=== PATIENT | male | born 1950 | race Caucasian/White ===

== ENCOUNTER 2016-12-15 05:43 | Inpatient (IN) | payer OTHER ==
[2016-12-09 09:32] VITALS: BMI 28.0
--- NOTE | 2016-12-09 10:33 | PAT Medication Instructions ---
Service Date Dec 09, 2016. Current Home Medication List Allopurinol (Zyloprim *), 100 MG PO QAM Ascorbic Acid (Vitamin C *), 1,000 MG PO BID Aspirin (Aspirin *), 325 MG PO HS Atenolol (Tenormin), 25 MG PO QAM Carbamazepine (Tegretol Xr), 200 MG PO BID Cholecalciferol (Vitamin D3), 2,000 UNITS PO QAM Clonidine Hcl (Catapres *), 0.3 MG PO HS Clonidine Hcl (Catapres), 0.1 MG PO QAM Ezetimibe (Zetia), 10 MG PO QAM Felodipine (Plendil), 10 MG PO QAM Glucosamine-Chondroitin (Glucosamine/Chondroitin), 1 CAPSULE PO BID Hydrocodone/Acetaminophen 5MG/500MG (Vicodin (5MG/500MG)), 1-2 TABLETS PO Q4H PRN for Pain Indapamide (Indapamide), 2.5 MG PO BID Irbesartan (Avapro *), 150 MG PO BID Magnesium Oxide (Mag-Ox), 400 MG PO QPM Minoxidil (Minoxidil), 5 MG PO BID Niacin Ext Rel (Niaspan Ext Rel), 1,000 MG PO HS Vancleave 3 Fatty Acids-Vancleave 6 Fa (Vancleave 3-6-9 Complex), 2,000 MG PO BID Omeprazole (Prilosec), 20 MG PO DAILY Potassium Chloride (Klor-Con), 10 MEQ PO BID Rosuvastatin Calcium (Crestor *), 40 MG PO HS Spironolactone (Aldactone), 25 MG PO BID Medication Instructions For Your Scheduled Surgery - Hold the following medications as of 12/09/16: Vancleave 3 Fatty Acids-Vancleave 6 Fa (Vancleave 3-6-9 Complex), 2,000 MG PO BID Glucosamine-Chondroitin (Glucosamine/Chondroitin), 1 CAPSULE PO BID - Hold the following medications 24 hours prior to surgery: Niacin Ext Rel (Niaspan Ext Rel), 1,000 MG PO HS Irbesartan (Avapro *), 150 MG PO BID - Hold the following medications the morning of surgery: Spironolactone (Aldactone), 25 MG PO BID Ascorbic Acid (Vitamin C *), 1,000 MG PO BID Potassium Chloride (Klor-Con), 10 MEQ PO BID Cholecalciferol (Vitamin D3), 2,000 UNITS PO QAM Indapamide (Indapamide), 2.5 MG PO BID - Take the following medications the morning of surgery with a sip of water OTHERWISE NOTHING TO EAT OR DRINK AFTER MIDNIGHT: Allopurinol (Zyloprim *), 100 MG PO QAM Atenolol (Tenormin), 25 MG PO QAM Carbamazepine (Tegretol Xr), 200 MG PO BID Clonidine Hcl (Catapres), 0.1 MG PO QAM Ezetimibe (Zetia), 10 MG PO QAM Minoxidil (Minoxidil), 5 MG PO BID Felodipine (Plendil), 10 MG PO QAM Omeprazole (Prilosec), 20 MG PO DAILY Hydrocodone/Acetaminophen 5MG/500MG (Vicodin (5MG/500MG)), 1-2 TABLETS PO Q4H PRN for Pain (may take if needed up to 4 hours prior to surgery) - Take the following medications as scheduled the night before surgery: Spironolactone (Aldactone), 25 MG PO BID Ascorbic Acid (Vitamin C *), 1,000 MG PO BID Clonidine Hcl (Catapres *), 0.3 MG PO HS Aspirin (Aspirin *), 325 MG PO HS Rosuvastatin Calcium (Crestor *), 40 MG PO HS Potassium Chloride (Klor-Con), 10 MEQ PO BID Carbamazepine (Tegretol Xr), 200 MG PO BID Magnesium Oxide (Mag-Ox), 400 MG PO QPM Minoxidil (Minoxidil), 5 MG PO BID Indapamide (Indapamide), 2.5 MG PO BID Hydrocodone/Acetaminophen 5MG/500MG (Vicodin (5MG/500MG)), 1-2 TABLETS PO Q4H PRN for Pain If you have any questions please call us at [phone] or [phone] or [phone]
--- NOTE | 2016-12-09 11:05 | DIAGNOSTIC IMAGING REPORT ---
CHEST PREADMISSION(PA/LAT) HISTORY: Preop. COMPARISON: Chest 04/04/2010. FINDINGS: The lungs are clear. Cardiac silhouette is normal in size. No pleural effusions. No pneumothorax. Mildly tortuous thoracic aorta, unchanged. IMPRESSION: No significant change compared to the prior study. No acute process. Electronically signed by: Serge Lucas M.D. 12/09/2016 11:04 AM Dictated Date/Time: 12/09/2016 11:03 AM
[2016-12-09 11:22] LABS: BASO % 0.4 %; BASO ABS # 0.02 K/uL (0-0.2); COMPLETE YES; EOS % 3.4 %; HEMATOCRIT 36.5 % (42-52); IG% 0.2 %; LYMPH % 38.3 %; LYMPH ABS # 1.79 K/uL (1.2-3.4); MEAN CELL VOLUME 90.3 fL (80-100); MEAN CORPUSCULAR HEMOGLOBIN 32.9 pg (25-34); MEAN CORPUSCULAR HGB CONC 36.4 g/dl (32-36); MEAN PLATELET VOLUME 9.1 fL (7.4-10.4); MONO % 8.6 %; NEUT % 49.1 %; PLATELET COUNT 129 K/uL (130-400); RED BLOOD COUNT 4.04 M/uL (4.7-6.1); WHITE BLOOD COUNT 4.67 K/uL (4.8-10.8)
[2016-12-09 11:27] LABS: URINE APPEARANCE CLEAR (CLEAR); URINE BILIRUBIN NEG (NEG); URINE COLOR YELLOW; URINE NITRITE NEG (NEG); URINE SPECIFIC GRAVITY 1.023 (1.000-1.030); UROBILINOGEN NEG (NEG); ZZUR CULT IF INDIC CLEAN CATCH NO
[2016-12-09 11:30] LABS: BUN/CREATININE RATIO 25.1 (10-20); CALCIUM 9.4 mg/dl (8.5-10.1); CREATININE 1.8 mg/dl (0.60-1.40); POTASSIUM 4.4 mmol/L (3.5-5.1)
[2016-12-09 11:32] LABS: MANUAL MICROSCOPIC REQUIRED? NO; REVIEW REQ? NO
[~2016-12-15] VITALS: Ht 177.8 cm; Wt 83.5 kg
[2016-12-15] VITALS (9 sets, daily range): BP systolic 146–175; BP diastolic 81–106; PULSE 17–96; TEMP 36.4–37.2; O2SAT 92–96; Ht 177.8 cm; Wt 83.5 kg
[~2016-12-15 05:43] MED LIST: ALL100 PO; ASCA500 PO; ASPEC325 PO; ATEN-173 PO; AVP150 PO; CARB1CAP3 PO; CHOL2000 PO; CLON0.1T12 PO; CRS10 PO; CTP2 PO; FELO10TA2 PO; GLUC250C PO; HYDR5TAB27 PO; INDA2.5T PO; MAGN400T6 PO; MCRK20 PO; MINO1TAB PO; NIAC1TAB59 PO; OMEG1CAP71 PO; PRLSR20 PO; SPIR25TA PO; ZTA10 PO
[2016-12-15] MEDS ORDERED: LACTATED RINGER'S 1000ML 1,000 ML IV SCH (06:00)
[2016-12-15] MEDS ORDERED: CEFAZOLIN 2000 MG/60 ML D5W IV SCH (06:00)
[2016-12-15] MEDS ORDERED: MIDAZOLAM HCL 1 MG/ML 2ML VIAL ONE (06:50)
[2016-12-15] MEDS ORDERED: FENTANYL CITRATE INJ 50 MCG/1 ML 2 ML VIAL ONE ×3 (06:50→09:12)
[2016-12-15] MEDS ORDERED: BUPIVACAINE/EPINEPHRINE 0.5% MPF 1:200,000 30 ML VIAL ONE (07:11)
[2016-12-15] MEDS ORDERED: BACITRACIN 50000 UNIT VIAL ONE (07:11)
--- NOTE | 2016-12-15 07:27 | History & Physical Bridge Note ---
H&P Re-Evaluation Bridge Note: I have examined the patient, reviewed the History & Physical and in the interval since the performance of the History & Physical I have noted the following changes of clinical significance: No changes noted
--- NOTE | 2016-12-15 07:28 | History and Physical ---
History & Physical Date Dec 15, 2016. Chief Complaint Back and leg pain History of Present Illness The patient is a 66 year old male with complaints of back and leg pain Additional History Hepatic Disease: No Endocrine Disorder: No Kidney Disease: No Hypertension: No Heart Disease: No Bleeding Tendencies: No Infectious Diseases: No Allergies Coded Allergies: No Known Allergies (Verified , 12/09/16) Home Medications Scheduled Allopurinol (Zyloprim *), 100 MG PO QAM Ascorbic Acid (Vitamin C *), 1,000 MG PO BID Aspirin (Aspirin *), 325 MG PO HS Atenolol (Tenormin), 25 MG PO QAM Carbamazepine (Tegretol Xr), 200 MG PO BID Cholecalciferol (Vitamin D3), 2,000 UNITS PO QAM Clonidine Hcl (Catapres *), 0.3 MG PO HS Clonidine Hcl (Catapres), 0.1 MG PO QAM Ezetimibe (Zetia), 10 MG PO QAM Felodipine (Plendil), 10 MG PO QAM Glucosamine-Chondroitin (Glucosamine/Chondroitin), 1 CAPSULE PO BID Indapamide (Indapamide), 2.5 MG PO BID Irbesartan (Avapro *), 150 MG PO BID Magnesium Oxide (Mag-Ox), 400 MG PO QPM Minoxidil (Minoxidil), 5 MG PO BID Niacin Ext Rel (Niaspan Ext Rel), 1,000 MG PO HS Culbertson 3 Fatty Acids-Culbertson 6 Fa (Culbertson 3-6-9 Complex), 2,000 MG PO BID Omeprazole (Prilosec), 20 MG PO DAILY Potassium Chloride (Klor-Con), 10 MEQ PO BID Rosuvastatin Calcium (Crestor *), 40 MG PO HS Spironolactone (Aldactone), 25 MG PO BID Scheduled PRN Hydrocodone/Acetaminophen 5MG/500MG (Vicodin (5MG/500MG)), 1-2 TABLETS PO Q4H PRN for Pain Physical Examination Skin: warm/dry, no rash Eyes: normal inspection, EOMI, sclerae normal ENT: normal ENT inspection, pharynx normal Head: normocephalic, atraumatic Neck: supple, no adenopathy, trachea midline Respiratory/Chest: lungs clear, normal breath sounds, no respiratory distress Cardiovascular: regular rate, rhythm, no edema, no murmur Abdomen / GI: normal bowel sounds, non tender Back: normal inspection Extremities: normal inspection, normal range of motion Neurologic/Psych: no motor/sensory deficits, alert, normal reflexes, oriented x 3 Diagnosis Lumbar spinal stenosis Plan of Treatment Lumbar decompression fusion L5-S1 possible L4 5.
[2016-12-15] MEDS ORDERED: HYDROmorphone INJ 1 MG/ML SYR IV PRN (08:00)
[2016-12-15] MEDS ORDERED: LABETALOL HCL IV 5 MG/ML 20ML IV PRN (08:00)
[2016-12-15] MEDS ORDERED: EpHEDrine SULFATE INJ 50 MG/ML AMP IV PRN (08:00)
[2016-12-15] MEDS ORDERED: ONDANSETRON INJ 2 MG/ML 2 ML VIAL IV PRN (08:00)
[2016-12-15] MEDS ORDERED: ATROPINE SULFATE 0.1 MG/ML 5ML SYR IV PRN (08:00)
[2016-12-15] MEDS ORDERED: MEPERIDINE HCL 25 MG/ML CARP IV PRN (08:00)
[2016-12-15] MEDS ORDERED: HYDROmorphone INJ 2 MG/ML SYR/VIAL ONE ×2 (08:01→09:15)
[2016-12-15] MEDS ORDERED: PROPOFOL IV EMULSION 10 MG/ML 20 ML VIAL IV ONE (08:03)
[2016-12-15] MEDS ORDERED: LIDOCAINE HCL 2% 2 ML VIAL (20MG/ML) ONE (08:03)
[2016-12-15] MEDS ORDERED: DEXAMETHASONE SOD INJ 4 MG/ML VIAL ONE (08:03)
[2016-12-15] MEDS ORDERED: ONDANSETRON INJ 2 MG/ML 2 ML VIAL ONE ×2 (08:03→09:17)
[2016-12-15] MEDS ORDERED: FLOSEAL HEMOSTATIC MATRIX 10ML TOP ONE (09:02)
[2016-12-15] MEDS ORDERED: SODIUM CHLORIDE 0.9% 1000ML 1,000 ML IV SCH (09:13)
[2016-12-15] MEDS ORDERED: hydrOXYzine HCL 25 MG TAB PO PRN (09:15)
[2016-12-15] MEDS ORDERED: PROMETHAZINE HCL INJ 12.5 MG in SODIUM CHLORIDE 0.9% 50ML 50 ML IV PRN (09:15)
[2016-12-15] MEDS ORDERED: MAGNESIUM HYDROXIDE SUSP 30 ML UDC PO PRN (09:15)
[2016-12-15] MEDS ORDERED: SOD PHOSPHATE/SOD BIPHOSPHATE ENEMA 132 ML BTL PR PRN (09:15)
[2016-12-15] MEDS ORDERED: DO NOT ADMINISTER PNEUMOCOCCAL VACCINE PRN ×2 (09:15)
[2016-12-15] MEDS ORDERED: FAMOTIDINE 20 MG TAB PO PRN (09:15)
[2016-12-15] MEDS ORDERED: ALUMINUM/MAGNESIUM SUSP 30 ML UDC PO PRN (09:15)
[2016-12-15] MEDS ORDERED: BISACODYL 10 MG SUPP PR PRN (09:15)
[2016-12-15] MEDS ORDERED: LORAZEPAM INJ 0.5 MG in SYRINGE 0.75 ML IV PRN (09:15)
[2016-12-15] MEDS ORDERED: NALOXONE HCL 0.4 MG/1 ML VIAL/CARP IV PRN ×2 (09:15)
[2016-12-15] MEDS ORDERED: METOCLOPRAMIDE HCL INJ 5 MG/ML 2 ML VIAL IV PRN (09:15)
[2016-12-15] MEDS ORDERED: DO NOT ADMINISTER FLU VACCINE PRN ×3 (09:15)
[2016-12-15] MEDS ORDERED: ACETAMINOPHEN IV 100 ML IV PRN (09:15)
[2016-12-15] MEDS ORDERED: LORAZEPAM 0.5 MG TAB PO PRN (09:15)
[2016-12-15] MEDS ORDERED: NEOSTIGMINE METHYLSULFATE 1 MG/ML 10ML VIAL ONE (09:17)
[2016-12-15] MEDS ORDERED: EpHEDrine SULFATE 50MG/5ML SYR ONE (09:17)
[2016-12-15] MEDS ORDERED: GLYCOPYRROLATE INJ 0.2 MG/ML VIAL ONE (09:17)
[2016-12-15] MEDS ORDERED: PHENYLEPHRINE 100MCG/ML 5ML SYR ONE (09:17)
--- NOTE | 2016-12-15 09:19 | [facility] Operative Report ---
Operative Report Operative Date Dec 15, 2016. Pre-Operative Diagnosis Lumbar spinal stenosis L4-5 Post-Operative Diagnosis Lumbar spinal stenosis L4-5 Procedure(s) Performed #1 lumbar decompression medial facetectomies foraminotomies L4 5 L5-S1. #2 posterior spinal fusion L5-S1. #3 placement posterior instrumentation L5-S1. #4 interbody fusion L5-S1. #5 placement peek Cage 14 x 26 mm L5-S1. #6 placement of locally harvested morcellized autograft in the posterior gutters. #7 placement of ostial amp in the interbody space and posterior lateral gutters. Surgeon Dr. Anthony Owens Operations Manager/Coordinator Surgeon(s) Joelle Anderson PA-C Estimated Blood Loss 450ML Findings Severe spinal stenosis with spondylolisthesis Specimens none per surgeon Dr. Anthony Owens Description of Procedure Patient was met with preoperatively case discussed all questions are dressed. After informed consent patient was taken back to the operative suite and intubated and placed in a prone position on the Pastor table on top Francois frame. All bony prominences were well-padded eyes inspected to ensure no external pressure. Lumbar spine was prepped and draped in the normal sterile fashion. Sharp dissection with the assistance of Bovie cautery was performed onto an exposing the lamina and transverse processes of L5-S1. Obvious pars defect was appreciated. A complete laminectomy was performed of L5 partial laminectomy of L4 addressing lateral recess disease and foraminal stenosis bilaterally. Is a massive disc herniation at L5 S1 left. After all was decompressed pedicle screws are placed in L5-S1 levels bilaterally with assistance of fluoroscopy in the appropriate size david placed through a transforaminal approach on the left complete discectomy of L5-S1 was performed and plate created to subcortical bleeding bone and a 14 x 26 mm peek cage filled with ostial amp graft tapped in position. Rods and locked and final position bilaterally. The transverse processes of L5 and sacral alar burred to subcortical bleeding bone. Remaining locally harvested morcellized autograft bone graft was placed the posterior gutters. 15 round DONNELL drain inserted. Incision closed with 1 Vicryl in the fascia 2-0 Vicryl subcutaneously 4-0 Monocryl for final skin closure Steri-Strip sterile dressing placed. Patient we can taken to PACU stable condition. Please note Joelle Flores was present at the entire procedure involved in patient positioning complex portions of the surgery and final skin closure. I attest to the content of the Intraoperative Record and any orders documented therein. Any exceptions are noted below.
[2016-12-15] MEDS ORDERED: HYDROmorphone HCL 0.5MG/ML 50 ML CASSETTE ONE (09:33)
[2016-12-15] MEDS: HYDROmorphone HCL 0.5MG/ML 50 ML CASSETTE IV PRN ×4 (09:42→23:08)
[2016-12-15] MEDS: FENTANYL CITRATE INJ 50 MCG/1 ML 2 ML VIAL IV PRN ×2 (09:46→09:52)
--- NOTE | 2016-12-15 10:34 | Anesthesiology Progress Note ---
Anesthesia Post Op Note Date & Time Dec 15, 2016 at 10:33 Vital Signs Pain Intensity: 4 Vital Signs Past 12 Hours Date Time Temp Pulse Resp B/P (MAP) Pulse Ox O2 Delivery O2 Flow Rate FiO2 12/15/16 10:25 62 19 140/85 95 Nasal Cannula 4 12/15/16 10:15 63 19 139/89 99 Nasal Cannula 4 12/15/16 10:05 36.3 67 19 146/92 100 Nasal Cannula 4 12/15/16 09:55 67 21 134/82 100 Nasal Cannula 4 12/15/16 09:45 77 25 141/85 100 Oxymask 10 12/15/16 09:35 73 21 144/82 99 Oxymask 10 12/15/16 09:28 36.5 80 16 145/81 97 Oxymask 10 12/15/16 06:02 36.8 69 18 159/105 96 Room Air Notes Mental Status: alert / awake / arousable, participated in evaluation Pt Amnestic to Procedure: Yes Nausea / Vomiting: adequately controlled Pain: adequately controlled Airway Patency, RR, SpO2: stable & adequate BP & HR: stable & adequate Hydration State: stable & adequate Anesthetic Complications: no major complications apparent
[2016-12-15] MEDS: LACTATED RINGER'S 1000ML 1,000 ML IV SCH ×3 (11:14→22:18)
--- NOTE | 2016-12-15 11:29 | DIAGNOSTIC IMAGING REPORT ---
INTRAOPERATIVE RADIOGRAPHS CLINICAL HISTORY: L5-S1 spinal fusion. Fluoroscopy time: 20 seconds. FINDINGS: 2 spot fluoroscopic views of the lumbar spine are presented. There is evidence of laminectomy and posterior fusion at L5-S1. There has been discectomy at this level. Interpedicular screws are seen at both levels. The orthopedic hardware appears intact. An aortic stent graft is noted. IMPRESSION: Intraoperative images from L5 -S1 spinal fusion as above. Electronically signed by: Gil Gomez M.D. 12/15/2016 11:28 AM Dictated Date/Time: 12/15/2016 11:27 AM
[2016-12-15] MEDS ORDERED: RXC5 PO (11:58)
--- NOTE | 2016-12-15 11:59 | Discharge Instructions ---
Discharge Instructions Date of Service Dec 15, 2016. Admission Reason for Admission: Lumbar Spinal Stenosis Discharge Discharge Diagnosis / Problem: lumbar spinal stenosis Discharge Goals Goal(s): Improve function Activity Recommendations Activity Limitations: per Instructions/Follow-up section . Instructions / Follow-Up Instructions / Follow-Up ACTIVITY RECOMMENDATIONS: SELF CARE INSTRUCTIONS AFTER THORACIC/LUMBAR FUSIONS 1. You may walk to your tolerance. It is good exercise for your legs and back. Expect some back and intermittent leg aches and pains. 2. You may perform "counter-top" level activities (make a sandwich, jennyfer with a project, etc.). 3. No bending or lifting of more than 10 pounds or back twisting of any nature (roll like a log when turning in bed). 4. You may ride in a car for 20-30 minutes at a time. No driving until after your first visit with your doctor. 5. Frequent changes of position and restricting sitting to 30 minutes at a time will help limit the amount of back spasms and stiffness you may experience. 6. You may discontinue the use of ambulatory aids (cane, crutches, etc.) once your strength and confidence allow. 7. You may billing supervisor the shower and let water strike your incision when you arrive home at least once daily. Do not take a tub bath, sit in a hot tub or go into a swimming pool until after your first recheck in the office. SPECIAL CARE INSTRUCTIONS: VERY IMPORTANT TO READ AND REVIEW A. Your surgical incision has been closed with a cosmetic suture under the skin that will dissolve in about 6 weeks. In 14 days, you can use a pair of clean scissors and cut the suture that is left outside of the skin at the ends of your incision. 1. The small skin tapes can be removed 7 days after surgery if they have not fallen off by that point. 2. You may keep the wound open to air as much as possible to promote healing after post-op day number 5 unless told otherwise by your doctor. 3. If you think the wound looks like it is becoming infected (redness or worsening drainage) and/or you are experiencing fever, chill or worsening back pain and muscle spasms, contact the office so that we may evaluate you as soon as possible. B. Complications are uncommon, but please contact us if you have any signs or symptoms of: 1. wound infection (fever higher than 102.5 degrees F, redness, separation of wound, drainage, or increasing pain from the incision) 2. blood clots in legs (pain, swelling, redness and warmth in legs) 3. urinary tract infection (fever higher than 102.5 degrees F, burning upon urination or increased frequency of urination) 4. nerve problems (inability to walk on your toes or heels, numbness, loss of bowel or bladder control) 5. any other symptoms that concern you C. Please call the office at if you have any concerns or questions about your operation or recovery. D. No smoking! Smoking drastically decreases the chance of a solid fusion. E. Do not take any anti-inflammatory medications (Indocin, Advil, Motrin, Aspirin, Naprosyn, etc.) as these may inhibit the chance of a solid fusion. Tylenol is okay to take for pain. MANAGING PAIN AFTER SPINAL SURGERY 1. Narcotic medication is intended for short-term use and will be provided for surgical pain. Surgical pain usually lasts for a period of 4-6 weeks. Narcotic medication includes Percocet, Vicodin, Darvocet, Tylenol #3 or Lortab. 2. Longer-term pain is more appropriately treated with non-narcotic medication such as Tylenol ES. 3. Muscle spasm is not appropriately treated with narcotics. Muscle relaxers such as Soma, Flexeril or Skelaxin can be used along with Tylenol ES. 4. Remember that we all live with some "aches and pains". This is not unusual or uncommon after an injury or as we get older. a. Back pain is expected and may include muscle spasms for 4 to 6 weeks after surgery. The pain should gradually improve. If the pain worsens for no apparent reason, please contact the office. b. Intermittent leg pain may also be experienced and should not be concerned about unless it worsens for no apparent reason. If so, please contact the office. 5. We will provide appropriate medication within the normal guidelines of their prescribed use. We will also be very cautious and aware of potential abuse and extended duration of patients' medication needs. a. Pain medications are for your comfort and to assist with sleep and rest so that the tissue can heal. They are not provided in order to return to normal activity and should not be used through the day. To do so or worsening pain at night can result from ongoing tissue damage and development of tolerance to the prescribed medicine. 6. Please allow 2-3 days to process refills. Prescriptions will not be mailed but must be picked up at the office. FOLLOW UP VISIT: Keep your scheduled follow-up appointment. Any questions, please call the office at . Current Hospital Diet Patient's current hospital diet: Regular Diet Discharge Diet Recommended Diet: Regular Diet Procedures Procedures Performed: #1 lumbar decompression medial facetectomies foraminotomies L4 5 L5-S1. #2 posterior spinal fusion L5-S1. #3 placement posterior instrumentation L5-S1. #4 interbody fusion L5-S1. #5 placement peek Cage 14 x 26 mm L5-S1. #6 placement of locally harvested morcellized autograft in the posterior gutters. #7 placement of ostial amp in the interbody space and posterior lateral gutters. Pending Studies Studies pending at discharge: no Medical Emergencies . Who to Call and When: Medical Emergencies: If at any time you feel your situation is an emergency, please call 911 immediately. . Non-Emergent Contact Non-Emergency issues call your: Primary Care Provider . "Provider Documentation" section prepared by Anthony Owens. . VTE Core Measure Inpt VTE Proph given/why not?: Mari Huitron, SCD's
--- NOTE | 2016-12-15 13:23 | Medical Consult ---
Consultation Date of Consultation: Dec 15, 2016. Attending Physician: Anthony Owens D.O. Reason for Consultation: Post Op Medical Management History of Present Illness 66 year old male who is s/p lumbar decompression fusion today by Dr. Owens. Patient reports increasing back pain for the past year and a half with radiation into the left with left foot numbness. He failed outpatient conservative measures and therefore presented for the planned procedure today. Post operatively the patient is doing well. He reports his pain is well controlled. He denies any numbness or tingling to the BLLE. He denies chest pain and shortness of breath. No abdominal pain, nausea, or vomiting. No lightheadedness or dizziness. He has not voided since surgery. Past Medical/Surgical History Medical Problems: (1) CKD (chronic kidney disease), stage III Status: Chronic (2) Dyslipidemia Status: Chronic (3) Endoleak post (EVAR) endovascular aneurysm repair Status: Chronic (4) HTN (hypertension) Status: Chronic Surgical Problems: (1) History of appendectomy Status: Chronic (2) History of thumb surgery Permanent Comment: right Status: Chronic (3) Hx of cardiac cath Permanent Comment: 2010 - mild - moderate non obstructive CAD Status: Chronic (4) S/P AAA repair Status: Chronic (5) s/p meniscus repair Status: Chronic (6) S/P shoulder surgery Permanent Comment: left Status: Chronic Family History FH: CAD (coronary artery disease) FATHER FH: lung cancer FATHER Social History Smoking Status: Never Smoker Alcohol Use: none Allergies Coded Allergies: No Known Allergies (Verified , 12/09/16) Home Medications Mag-Ox (Magnesium Oxide) 400 Mg Tab 400 Mg PO QPM Zetia (Ezetimibe) 10 Mg Tab 10 Mg PO QAM Minoxidil 10 Mg Tab 5 Mg PO BID 1/2 TABLET TWICE DAILY. Vitamin D3 (Cholecalciferol) 2,000 Unit Cap 2,000 Units PO QAM TAKE EVERY MONDAY/MONDAY/MONDAY Indapamide 2.5 Mg Tab 2.5 Mg PO BID TAKE TWO TABLTS DAILY Glucosamine/Chondroitin (Glucosamine-Chondroitin) 1 Cap Cap 1 Capsule PO BID [place] 3-6-9 Complex ([place] 3 Fatty Acids-[place] 6 Fa) 1 Cap Cap 2,000 Mg PO BID Catapres (Clonidine Hcl) 0.1 Mg Tab 0.1 Mg PO QAM Vicodin (5MG/500MG) (Hydrocodone/Acetaminophen 5MG/500MG) 1 Tab Tab 1-2 Tablets PO Q4H PRN Prilosec (Omeprazole) 20 Mg Capcr 20 Mg PO DAILY TAKE ONE DAILY 30-60 MINUTES BEFORE EATING. Klor-Con (Potassium Chloride) 20 Meq Tabcr 10 Meq PO BID TAKE 1/2 TABLET AM AND PM DAILY Vitamin C * (Ascorbic Acid) 500 Mg Tab 1,000 Mg PO BID Aldactone (Spironolactone) 25 Mg Tab 25 Mg PO BID Plendil (Felodipine) 10 Mg Tabcr 10 Mg PO QAM Niaspan Ext Rel (Niacin) 500 Mg Tabcr 1,000 Mg PO HS TAKE AT BEDTIME AFTER A LOW FAT SNACK. Crestor * (Rosuvastatin Calcium) 10 Mg Tab 40 Mg PO HS Catapres * (Clonidine HCl) 0.2 Mg Tab 0.3 Mg PO HS Tegretol Xr (Carbamazepine) 200 Mg Cap 200 Mg PO BID MAY TAKE THREE TIMES DAILY NEEDED. Avapro * (Irbesartan) 150 Mg Tab 150 Mg PO BID Tenormin (Atenolol) 25 Mg Tab 25 Mg PO QAM Zyloprim * (Allopurinol) 100 Mg Tab 100 Mg PO QAM Aspirin * (Aspirin) 325 Mg Tab 325 Mg PO HS Current Inpatient Medications Current Inpatient Medications Medications (Trade) Dose Ordered Sig/Abby Route Start Time Stop Time Status Last Admin Dose Admin Dexamethasone Sodium Phosphate 6 mg/Syringe 1.5 ml @ 1 mls/min Q8H IV 12/15/16 16:00 12/16/16 08:02 Promethazine HCl 12.5 mg/Sodium Chloride 50.5 ml @ 202 mls/hr Q6H PRN IV 12/15/16 09:15 01/14/17 09:14 Ondansetron HCl (Zofran Inj) 4 mg Q6H PRN IV 12/15/16 09:15 01/14/17 09:14 Metoclopramide HCl (Reglan Inj) 10 mg Q6H PRN IV 12/15/16 09:15 01/14/17 09:14 Lorazepam (Ativan Tab) 0.5 mg Q8H PRN PO 12/15/16 09:15 01/14/17 09:14 Lorazepam 0.5 mg/ Syringe 1 ml @ 1 mls/min Q8H PRN IV 12/15/16 09:15 01/14/17 09:14 Pneumococcal Polysaccharide Vaccine 1 ea PRN PRN N/A 12/15/16 09:15 01/14/17 09:14 Influenza Virus Vacc Triv Types A&B 1 ea PRN PRN N/A 12/15/16 09:15 01/14/17 09:14 Polyethylene (Miralax Powder Packet) 17 gm Q6 PO 12/17/16 06:00 01/16/17 05:59 Bisacodyl (Dulcolax Supp) 10 mg DAILY PRN DE 12/15/16 09:15 01/14/17 09:14 Magnesium Hydroxide (Milk Of Magnesia Susp) 30 ml DAILY PRN PO 12/15/16 09:15 01/14/17 09:14 Hydromorphone HCl (Dilaudid Inj) 0.5 mg Q3H PRN IV 12/16/16 06:00 12/30/16 05:59 Oxycodone HCl (Roxicodone Immediate Rel Tab) 5-10mg prn moderate to sev... Q4H PRN PO 12/16/16 06:00 12/30/16 05:59 Cefazolin Sodium 2000 mg/Dextrose 60 ml @ 100 mls/hr Q8H IV 12/15/16 16:00 12/16/16 00:35 Lactated Ringer's 1,000 ml @ 150 mls/hr Q6H40M IV 12/15/16 09:13 01/14/17 09:12 12/15/16 11:14 150 MLS/HR Acetaminophen (Tylenol Tab) 1,000 mg Q8H PRN PO 12/15/16 09:15 01/14/17 09:14 Acetaminophen 100 ml @ 400 mls/hr Q8H PRN IV 12/15/16 09:15 01/14/17 09:14 Naloxone HCl (Narcan Inj) 0.1 mg Q5M PRN IV 12/15/16 09:15 01/14/17 09:14 Senna/Docusate Sodium (Senokot S Tab) 2 tab HS PO 12/15/16 21:00 01/14/17 20:59 Sodium Biphosphate/ Sodium Phosphate (Fleet Enema) 132 ml ONE PRN DE 12/15/16 09:15 01/14/17 09:14 Hydroxyzine HCl (Vistaril Tab) 25 mg Q8H PRN PO 12/15/16 09:15 01/14/17 09:14 Al Hydroxide/Mg Hydroxide (Maalox Susp) 30 ml Q6H PRN PO 12/15/16 09:15 01/14/17 09:14 Famotidine (Pepcid Tab) 20 mg Q12 PRN PO 12/15/16 09:15 01/14/17 09:14 Diphenhydramine HCl (Benadryl Cap) 25 mg Q6H PRN PO 12/15/16 09:15 01/14/17 09:14 Miscellaneous Information (Discontinue [employer]) 1 ea TODAY@0600 N/A 12/16/16 06:00 12/16/16 06:01 Naloxone HCl (Narcan Inj) 0.1 mg Q5M PRN IV 12/15/16 09:15 12/16/16 06:00 Hydromorphone HCl (Dilaudid [employer]) 25 mg PRN PRN IV 12/15/16 09:15 12/16/16 06:00 12/15/16 10:45 25 MG Sodium Chloride 1,000 ml @ 15 mls/hr Q24H IV 12/15/16 09:13 12/16/16 06:00 Allopurinol (Zyloprim Tab) 100 mg QAM PO 12/16/16 09:00 01/15/17 08:59 Aspirin (Ecotrin Tab) 325 mg HS PO 12/15/16 21:00 01/14/17 20:59 Atenolol (Tenormin Tab) 25 mg QAM PO 12/16/16 09:00 01/15/17 08:59 Clonidine HCl (Catapres Tab) 0.1 mg QAM PO 12/16/16 09:00 01/15/17 08:59 EZETIMIBE (Zetia Tab) 10 mg QAM PO 12/16/16 09:00 01/15/17 08:59 Irbesartan (Avapro Tab) 150 mg BID PO 12/15/16 21:00 01/14/17 20:59 Magnesium Oxide (Mag-Ox Tab) 400 mg QPM PO 12/15/16 21:00 01/14/17 20:59 Minoxidil (Loniten Tab) 5 mg BID PO 12/15/16 21:00 01/14/17 20:59 Niacin (Niaspan Extended Rel Tab) 1,000 mg HS PO 12/15/16 21:00 01/14/17 20:59 Potassium Chloride (Klor-Con M10) 10 meq BID PO 12/15/16 21:00 01/14/17 20:59 Rosuvastatin Calcium (Crestor Tab) 40 mg HS PO 12/15/16 21:00 01/14/17 20:59 Spironolactone (Aldactone Tab) 25 mg BID PO 12/15/16 21:00 01/14/17 20:59 Pantoprazole Sodium (Protonix Tab) 40 mg QAM PO 12/16/16 09:00 01/15/17 08:59 Hydromorphone HCl (Dilaudid Inj) 1 mg Q3H PRN IV 12/16/16 06:00 12/30/16 05:59 Felodipine (Plendil Tabcr) 10 mg QAM PO 12/16/16 09:00 01/15/17 08:59 Clonidine HCl (Catapres Tab) 0.3 mg HS PO 12/15/16 21:00 01/14/17 20:59 Indapamide (Lozol Tab) 2.5 mg BID PO 12/15/16 21:00 01/14/17 20:59 Physical Exam Date Time Temp Pulse Resp B/P (MAP) Pulse Ox O2 Delivery O2 Flow Rate FiO2 12/15/16 12:50 36.6 74 19 163/92 (115) 92 Room Air 12/15/16 11:45 36.7 68 19 156/86 (109) 93 Nasal Cannula 4.0 12/15/16 10:45 96 Room Air 4.0 12/15/16 10:45 96 Room Air 4.0 12/15/16 10:25 62 19 140/85 95 Nasal Cannula 4 12/15/16 10:15 63 19 139/89 99 Nasal Cannula 4 12/15/16 10:05 36.3 67 19 146/92 100 Nasal Cannula 4 12/15/16 09:55 67 21 134/82 100 Nasal Cannula 4 12/15/16 09:45 77 25 141/85 100 Oxymask 10 12/15/16 09:35 73 21 144/82 99 Oxymask 10 12/15/16 09:28 36.5 80 16 145/81 97 Oxymask 10 12/15/16 06:02 36.8 69 18 159/105 96 Room Air General Appearance: no apparent distress Head: normocephalic, atraumatic Eyes: normal inspection, sclerae normal ENT: hearing grossly normal Neck: supple, no JVD Respiratory/Chest: lungs clear, normal breath sounds, no respiratory distress Cardiovascular: regular rate, rhythm, no edema, normal peripheral pulses Abdomen/GI: normal bowel sounds, non tender, soft Back: + pertinent finding (s/p back surgery, drain in place draining bloody drainage, pedal pushes and pulls strong BL) Extremities/Musculoskelatal: normal inspection, no calf tenderness Neurologic/Psych: no motor/sensory deficits, alert, normal mood/affect, oriented x 3 Skin: normal color, warm/dry Assessment & Plan S/P LUMBAR DECOMPRESSION FUSION - POD#0 - activity and wound care orders as per ortho - pain control with bowel regimen - PT/OT - monitor H/H for acute blood loss anemia and transfuse blood products PRN HTN - hx of labile HTN currently on 7 antihypertensives - continue irbesartan, clonidine, minoxidil, felodipine, indapamide, atenolol, and spironolactone CKD STAGE III - baseline creat runs in the mid 1's - monitor renal function daily HX AAA S/P REPAIR WITH CHRONIC ENDOLEAK HLD - continue statin, Zetia, and Niacin DVT PROPHYLAXIS - ASA + TEDs/SCDs per ortho Thank you for this consultation. We will follow the patient with you during their hospital stay. You can reach a member of the [facility] Hospitalist Team 17/10 via pager @ . ADDENDUM: I have seen and examined the patient and agree with the assessment and plan above with the exception that I would like to hold his renovascular constricting medications in the setting of his slightly elevated creatinine ( baseline 1.3). He will still receive his clonidine, spironolactone, atenolol and Plendil. Will monitor BP closely overnight. DO Riley
[2016-12-15 15:06] LABS: BUN/CREATININE RATIO 20.2 (10-20); CALCIUM 9.5 mg/dl (8.5-10.1); CREATININE 1.5 mg/dl (0.60-1.40); POTASSIUM 3.8 mmol/L (3.5-5.1)
[2016-12-15] MEDS: MINOXIDIL 2.5 MG TAB PO SCH ×2 (15:37→22:10)
[2016-12-15] MEDS: CEFAZOLIN IV 2,000 MG in DEXTROSE 5% 50ML 50 ML IV SCH ×2 (17:26→23:28)
[2016-12-15] MEDS: DEXAMETHASONE INJ 6 MG in SYRINGE 0 ML IV SCH ×2 (17:27→23:44)
[2016-12-15] MEDS: ONDANSETRON INJ 2 MG/ML 2 ML VIAL IV PRN (19:37)
[2016-12-15] MEDS ORDERED: LIDOCAINE HCL 2% JELLY 30 ML TUBE EXT ONE ×2 (20:25→20:30)
[2016-12-15] MEDS ORDERED: LIDOCAINE 2% JELLY 5 ML TUBE EXT ONE (20:30)
[2016-12-15] MEDS ORDERED: NURSING VERBAL MED ORDER ONE (20:30)
[2016-12-15] MEDS ORDERED: IRBESARTAN 150 MG TAB PO SCH (21:00)
[2016-12-15] MEDS ORDERED: INDAPAMIDE 1.25 MG TAB PO SCH (21:00)
[2016-12-15] MEDS: DOCUSATE SODIUM/SENNA 50/8.6MG TAB PO SCH (22:06)
[2016-12-15] MEDS: ROSUVASTATIN CALCIUM 20 MG TAB PO SCH (22:06)
[2016-12-15] MEDS: NIASPAN 500 MG TABCR PO SCH (22:07)
[2016-12-15] MEDS: POTASSIUM CHLORIDE 10 MEQ TABCR PO SCH (22:10)
[2016-12-15] MEDS: MAGNESIUM OXIDE 400 MG TAB PO SCH (22:12)
[2016-12-15] MEDS: SPIRONOLACTONE 25 MG TAB PO SCH (22:13)
[2016-12-15] MEDS: CLONIDINE HCL 0.3 MG TAB PO SCH (22:14)
[2016-12-15] MEDS: ASPIRIN 325 MG ECTAB PO SCH (22:14)
[2016-12-15] MEDS ORDERED: HydrALAZINE HCL 20 MG/ML VIAL IV. ONE (23:00)
[2016-12-16] MEDS: ACETAMINOPHEN 500 MG TAB PO PRN ×2 (03:30→21:09)
[2016-12-16 03:37] VITALS: BP 141/81; PULSE 91; TEMP 37.1; O2SAT 93
[2016-12-16] MEDS: LACTATED RINGER'S 1000ML 1,000 ML IV SCH (04:46)
[2016-12-16] MEDS ORDERED: DC PCA SCH (06:00)
[2016-12-16] MEDS ORDERED: HYDROmorphone INJ 1 MG/ML SYR IV PRN (06:00)
[2016-12-16] MEDS ORDERED: HYDROmorphone INJ 0.5 MG/0.5 ML SYR IV PRN (06:00)
[2016-12-16 06:59] LABS: COMPLETE YES; HEMATOCRIT 31.9 % (42-52); IG% 0.4 %; LYMPH % 12.3 %; LYMPH ABS # 1.45 K/uL (1.2-3.4); MEAN CELL VOLUME 89.9 fL (80-100); MEAN CORPUSCULAR HEMOGLOBIN 31.8 pg (25-34); MEAN CORPUSCULAR HGB CONC 35.4 g/dl (32-36); MEAN PLATELET VOLUME 9.2 fL (7.4-10.4); MONO % 8.3 %; PLATELET COUNT 137 K/uL (130-400); RED BLOOD COUNT 3.55 M/uL (4.7-6.1); WHITE BLOOD COUNT 11.83 K/uL (4.8-10.8)
[2016-12-16] MEDS ORDERED: NURSING VERBAL MED ORDER ONE (07:15)
[2016-12-16 07:35] LABS: CALCIUM 9.2 mg/dl (8.5-10.1); CREATININE 1.5 mg/dl (0.60-1.40); POTASSIUM 3.6 mmol/L (3.5-5.1)
[2016-12-16 07:47] VITALS: BP 129/83; PULSE 92; TEMP 36.9; O2SAT 96
--- NOTE | 2016-12-16 08:29 | Anesthesiology Progress Note ---
Anesthesia Post Op Note Date & Time Dec 16, 2016 at 08:29 Vital Signs Vital Signs Past 12 Hours Date Time Temp Pulse Resp B/P (MAP) Pulse Ox O2 Delivery O2 Flow Rate FiO2 12/16/16 07:47 36.9 92 18 129/83 (98) 96 Room Air 12/16/16 07:45 Room Air 12/16/16 03:37 37.1 91 16 141/81 (101) 93 Room Air 12/15/16 23:46 37.2 96 16 159/91 (113) 94 Room Air 12/15/16 23:30 Room Air 12/15/16 22:00 78 168/106 (126) Notes Mental Status: alert / awake / arousable, participated in evaluation Pt Amnestic to Procedure: Yes Nausea / Vomiting: adequately controlled Pain: adequately controlled Airway Patency, RR, SpO2: stable & adequate BP & HR: stable & adequate Hydration State: stable & adequate Anesthetic Complications: no major complications apparent
[2016-12-16] MEDS: SPIRONOLACTONE 25 MG TAB PO SCH ×2 (08:50→21:03)
[2016-12-16] MEDS: DEXAMETHASONE INJ 6 MG in SYRINGE 0 ML IV SCH (08:50)
[2016-12-16] MEDS: POTASSIUM CHLORIDE 10 MEQ TABCR PO SCH ×2 (08:51→21:03)
[2016-12-16] MEDS: CLONIDINE HCL 0.1 MG TAB PO SCH (08:51)
[2016-12-16] MEDS: MINOXIDIL 2.5 MG TAB PO SCH ×2 (08:51→21:05)
[2016-12-16] MEDS: EZETIMIBE 10MG TAB PO SCH (08:52)
[2016-12-16] MEDS: ALLOPURINOL 100 MG TAB PO SCH (08:52)
[2016-12-16] MEDS: FELODIPINE 5 MG TABCR PO SCH (08:52)
[2016-12-16] MEDS: PANTOprazole SOD 40 MG TAB PO SCH (08:53)
[2016-12-16] MEDS: ONDANSETRON INJ 2 MG/ML 2 ML VIAL IV PRN (08:58)
[2016-12-16] MEDS ORDERED: LIDOCAINE HCL 2% JELLY 30 ML TUBE EXT ONE (09:34)
[2016-12-16] MEDS ORDERED: NURSING DECISION MEDICATION ORDER SCH (09:45)
[2016-12-16] MEDS ORDERED: LIDOCAINE HCL 2% JELLY 30 ML TUBE EXT PRN (09:45)
[2016-12-16 11:26] VITALS: BP 132/78; PULSE 80; TEMP 36.7; O2SAT 95
[2016-12-16] MEDS ORDERED: TAMSULOSIN HCL 0.4 MG CAP PO ONE (12:30)
--- NOTE | 2016-12-16 12:36 | Progress Note ---
Internal Med Progress Note Date of Service: Dec 16, 2016. Provider Documentation: SUBJECTIVE: POD day 1 of lumbar fusion surgery. patient reports since yesterday night feeling urinary retention. reports that he needed straight cath. this is new in his health. never had this problem before. denies prostate problems. is willing to try tamsulosin OBJECTIVE: General Appearance: no apparent distress Head: normocephalic, atraumatic Eyes: normal inspection, sclerae normal ENT: hearing grossly normal Neck: supple, no JVD Respiratory/Chest: lungs clear, normal breath sounds, no respiratory distress Cardiovascular: regular rate, rhythm, no edema, normal peripheral pulses Abdomen/GI: normal bowel sounds, non tender, soft Back: lower back mildly tender Extremities: normal inspection, no calf tenderness Neurologic/Psych: no motor/sensory deficits, alert, normal mood/affect, oriented x 3 Skin: normal color, warm/dry : no duenas ASSESSMENT & PLAN: Assessment & Plan S/P LUMBAR DECOMPRESSION FUSION - POD#1 - activity and wound care orders as per ortho - pain control with bowel regimen - PT/OT - monitor H/H for acute blood loss anemia and transfuse blood products PRN HTN: blood pressure better controlled today - hx of labile HTN currently on 7 antihypertensives - continue irbesartan, clonidine, minoxidil, felodipine, indapamide, atenolol, and spironolactone CKD STAGE III - baseline creat runs in the mid 1's, creatinine downtrending - monitor renal function daily - having urinary retention, start tamsulosin tablet HX AAA S/P REPAIR WITH CHRONIC ENDOLEAK HLD - continue statin, Zetia, and Niacin DVT PROPHYLAXIS - ASA + TEDs/SCDs per ortho Vital Signs: Date Time Temp Pulse Resp B/P (MAP) Pulse Ox O2 Delivery O2 Flow Rate FiO2 12/16/16 11:26 36.7 80 18 132/78 (96) 95 Room Air 12/16/16 07:47 36.9 92 18 129/83 (98) 96 Room Air 12/16/16 07:45 Room Air 12/16/16 03:37 37.1 91 16 141/81 (101) 93 Room Air 12/15/16 23:46 37.2 96 16 159/91 (113) 94 Room Air 12/15/16 23:30 Room Air 12/15/16 22:00 78 168/106 (126) 12/15/16 19:44 36.4 78 17 175/106 (129) 96 Room Air 12/15/16 15:40 Room Air 12/15/16 15:13 36.5 75 17 155/97 (116) 93 Room Air 12/15/16 12:50 36.6 74 19 163/92 (115) 92 Room Air Lab Results: Results Past 24 Hours Test 12/15/16 14:28 12/16/16 06:30 Range/Units Sodium Level 139 140 136-145 mmol/L Potassium Level 3.8 3.6 3.5-5.1 mmol/L Chloride Level 103 103 98-107 mmol/L Carbon Dioxide Level 25 27 21-32 mmol/L Anion Gap 11.0 10.0 3-11 mmol/L Blood Urea Nitrogen 30 24 7-18 mg/dl Creatinine 1.50 1.50 0.60-1.40 mg/dl Est Creatinine Clear Calc Drug Dose 51.4 51.4 ml/min Estimated GFR () 56.2 56.2 Estimated GFR (Non- 48.5 48.5 BUN/Creatinine Ratio 20.2 16.0 10-20 Random Glucose 182 158 70-99 mg/dl Calcium Level 9.5 9.2 8.5-10.1 mg/dl White Blood Count 11.83 4.8-10.8 K/uL Red Blood Count 3.55 4.7-6.1 M/uL Hemoglobin 11.3 14.0-18.0 g/dL Hematocrit 31.9 42-52 % Mean Corpuscular Volume 89.9 80-100 fL Mean Corpuscular Hemoglobin 31.8 25-34 pg Mean Corpuscular Hemoglobin Concent 35.4 32-36 g/dl Platelet Count 137 130-400 K/uL Mean Platelet Volume 9.2 7.4-10.4 fL Neutrophils (%) (Auto) 79.0 % Lymphocytes (%) (Auto) 12.3 % Monocytes (%) (Auto) 8.3 % Eosinophils (%) (Auto) 0.0 % Basophils (%) (Auto) 0.0 % Neutrophils # (Auto) 9.35 1.4-6.5 K/uL Lymphocytes # (Auto) 1.45 1.2-3.4 K/uL Monocytes # (Auto) 0.98 0.11-0.59 K/uL Eosinophils # (Auto) 0.00 0-0.5 K/uL Basophils # (Auto) 0.00 0-0.2 K/uL RDW Standard Deviation 42.5 36.4-46.3 fL RDW Coefficient of Variation 13.0 11.5-14.5 % Immature Granulocyte % (Auto) 0.4 % Immature Granulocyte # (Auto) 0.05 0.00-0.02 K/uL
[2016-12-16] MEDS: OXYCODONE HCL IR 5 MG TAB (IMMEDIATE RELEASE) PO PRN ×3 (13:19→19:28)
[2016-12-16 15:25] VITALS: BP 112/67; PULSE 74; TEMP 37; O2SAT 93
--- NOTE | 2016-12-16 16:01 | Progress Note ---
Progress Note Date of Service Dec 16, 2016. Progress Note Patient is doing quite well. Back pain is controlled. No leg pain. Using bleeding well. Again left leg symptoms markedly improved. Vital signs are stable. He is excellent strength testing. Assessment status post lumbar decompression fusion replant this time we'll initiate physical therapy advance his bowel regiment anticipate possible home tomorrow.
[2016-12-16 21:00] VITALS: BP 128/82; PULSE 74
[2016-12-16] MEDS: ASPIRIN 325 MG ECTAB PO SCH (21:01)
[2016-12-16] MEDS: ROSUVASTATIN CALCIUM 20 MG TAB PO SCH (21:02)
[2016-12-16] MEDS: NIASPAN 500 MG TABCR PO SCH (21:02)
[2016-12-16] MEDS: DOCUSATE SODIUM/SENNA 50/8.6MG TAB PO SCH (21:03)
[2016-12-16] MEDS: MAGNESIUM OXIDE 400 MG TAB PO SCH (21:04)
[2016-12-16] MEDS: CLONIDINE HCL 0.3 MG TAB PO SCH (21:04)
[2016-12-16 22:47] VITALS: BP 109/66; PULSE 74; TEMP 37.2; O2SAT 94
[2016-12-17] MEDS: POLYETHYLENE (MIRALAX) 17 GM PACK PO SCH ×4 (06:14→22:58)
[2016-12-17] MEDS: OXYCODONE HCL IR 5 MG TAB (IMMEDIATE RELEASE) PO PRN (06:50)
[2016-12-17 07:01] VITALS: BP 133/87; PULSE 63; TEMP 36.9; O2SAT 93
[2016-12-17] MEDS: ALLOPURINOL 100 MG TAB PO SCH (09:10)
[2016-12-17] MEDS: SPIRONOLACTONE 25 MG TAB PO SCH ×2 (09:11→20:56)
[2016-12-17] MEDS: FELODIPINE 5 MG TABCR PO SCH (09:11)
[2016-12-17] MEDS: TAMSULOSIN HCL 0.4 MG CAP PO SCH (09:11)
[2016-12-17] MEDS: EZETIMIBE 10MG TAB PO SCH (09:11)
[2016-12-17] MEDS: PANTOprazole SOD 40 MG TAB PO SCH (09:11)
[2016-12-17] MEDS: POTASSIUM CHLORIDE 10 MEQ TABCR PO SCH ×2 (09:12→20:58)
[2016-12-17] MEDS: CLONIDINE HCL 0.1 MG TAB PO SCH (09:14)
[2016-12-17] MEDS: MINOXIDIL 2.5 MG TAB PO SCH ×2 (09:14→20:57)
[2016-12-17] MEDS: KETOROLAC TROMETHAMINE 30 MG/ML VIAL IV PRN ×3 (09:20→22:54)
--- NOTE | 2016-12-17 10:57 | Progress Note ---
Progress Note Date of Service Dec 17, 2016. Progress Note Patient is doing quite well. Leg pain markedly improved. He still has Connell catheter in place. We will remove it today and hopefully we'll begin urinating without difficulty. Will maintain the DONNELL drain today. Anticipate possible home tomorrow.
[2016-12-17] MEDS: ACETAMINOPHEN 500 MG TAB PO PRN ×2 (12:38→22:54)
--- NOTE | 2016-12-17 14:15 | Progress Note ---
Internal Med Progress Note Date of Service: Dec 17, 2016. Provider Documentation: SUBJECTIVE: POD day 2 of lumbar fusion surgery. patient continues to have urinary retention. last urinated with assistance of duenas. trial of void had been in place wt duenas removed around 10 AM. patient continues to not be able to micturate by himself OBJECTIVE: General Appearance: no apparent distress Head: normocephalic, atraumatic Eyes: normal inspection, sclerae normal ENT: hearing grossly normal Neck: supple, no JVD Respiratory/Chest: lungs clear, normal breath sounds, no respiratory distress Cardiovascular: regular rate, rhythm, no edema, normal peripheral pulses Abdomen/GI: mildly distended, + bowel sounds, nontender Back: lower back mildly tender Extremities: normal inspection, no calf tenderness Neurologic/Psych: no motor/sensory deficits, alert, normal mood/affect, oriented x 3 Skin: normal color, warm/dry : no duenas ASSESSMENT & PLAN: Assessment & Plan S/P LUMBAR DECOMPRESSION FUSION - POD#2 CKD STAGE III with urinary retention post-op -have been on tamsulosin since yesterday, continue medication -I have spoken with Dr. Owens, the patient's surgeon about continued urinary retention within the last [address] Owens is aware and plans are to monitor patient and reinsert duenas in the next four hours if patient continues to retain urine. HTN: blood pressure better controlled today - hx of labile HTN and have been on 7 antihypertensives -blood pressure is controlled on while indapamide and irbesartan are held - continue clonidine, minoxidil, felodipine, atenolol, and spironolactone HX AAA S/P REPAIR WITH CHRONIC ENDOLEAK HLD - continue statin, Zetia, and Niacin DVT PROPHYLAXIS - ASA + TEDs/SCDs per ortho Vital Signs: Date Time Temp Pulse Resp B/P (MAP) Pulse Ox O2 Delivery O2 Flow Rate FiO2 12/17/16 07:01 36.9 63 19 133/87 (102) 93 Room Air 12/16/16 23:15 Room Air 12/16/16 22:47 37.2 74 16 109/66 (80) 94 Room Air 12/16/16 21:00 74 128/82 (97) 12/16/16 15:40 Room Air 12/16/16 15:25 37.0 74 18 112/67 (82) 93 Room Air
[2016-12-17 15:28] VITALS: BP 106/68; PULSE 63; TEMP 36.8; O2SAT 94
[2016-12-17 20:53] VITALS: BP 143/86; PULSE 77
[2016-12-17] MEDS: ROSUVASTATIN CALCIUM 20 MG TAB PO SCH (20:55)
[2016-12-17] MEDS: ASPIRIN 325 MG ECTAB PO SCH (20:56)
[2016-12-17] MEDS: CLONIDINE HCL 0.3 MG TAB PO SCH (20:56)
[2016-12-17] MEDS: DOCUSATE SODIUM/SENNA 50/8.6MG TAB PO SCH (20:57)
[2016-12-17] MEDS: MAGNESIUM OXIDE 400 MG TAB PO SCH (20:58)
[2016-12-17] MEDS: NIASPAN 500 MG TABCR PO SCH (20:59)
[2016-12-17] MEDS ORDERED: NURSING DECISION MEDICATION ORDER SCH (22:30)
[2016-12-17 22:53] VITALS: BP 147/52; PULSE 94; TEMP 37.4; O2SAT 94
[2016-12-18] MEDS: POLYETHYLENE (MIRALAX) 17 GM PACK PO SCH (04:28)
[2016-12-18 06:50] VITALS: BP 164/88; PULSE 76; TEMP 36.9; O2SAT 95
--- NOTE | 2016-12-18 08:57 | Discharge Summary ---
Orthopedic Discharge Summary Admission Date/Reason Dec 15, 2016 at 07:00 Lumbar Spinal Stenosis. Discharge Date/Disposition Dec 18, 2016 Home Diagnosis Principal Diagnosis: Lumbar spinal stenosis Admission Physical Exam As per Admitting History & Physical. Hospital Course Patient underwent lumbar decompression fusion tolerated this well was taken to the orthopedic floor postoperatively. Postoperative day #1 his leg symptoms are markedly improved he tolerated physical therapy. We did attempt removal of the catheter however had to be reinserted secondary to urinary retention. Postoperative day #2 we were able to successfully DC the catheter and he was able to urinate. Substernally posterior day #3 he was discharged home. Discharge orders and instructions can be found on the chart for further review. Discharge Instructions Please refer to the electronic Patient Visit Report (Discharge Instructions) for additional information.
[2016-12-18] MEDS: PANTOprazole SOD 40 MG TAB PO SCH (09:23)
[2016-12-18] MEDS: POTASSIUM CHLORIDE 10 MEQ TABCR PO SCH (09:24)
[2016-12-18] MEDS: TAMSULOSIN HCL 0.4 MG CAP PO SCH (09:24)
[2016-12-18 09:25] VITALS: BP 150/90; PULSE 75
[2016-12-18] MEDS: SPIRONOLACTONE 25 MG TAB PO SCH (09:26)
[2016-12-18] MEDS: CLONIDINE HCL 0.1 MG TAB PO SCH (09:27)
[2016-12-18] MEDS: FELODIPINE 5 MG TABCR PO SCH (09:27)
[2016-12-18] MEDS: MINOXIDIL 2.5 MG TAB PO SCH (09:28)
[2016-12-18] MEDS: EZETIMIBE 10MG TAB PO SCH (09:28)
[2016-12-18] MEDS: ALLOPURINOL 100 MG TAB PO SCH (09:28)
[2016-12-18 09:33] VITALS: BP 150/90; PULSE 75; TEMP 36.9; O2SAT 95
--- NOTE | 2016-12-18 10:32 | Progress Note ---
Progress Note Date of Service Dec 18, 2016. Progress Note Internal medicine consult progress note Patient seen and examined today. Patient reports that he is urinating without assistance of duenas catheter as well as bowel movements. General: no acute distress Heart: regular rate Lungs: CTABL Abdomen: soft, nontender, nondistended, + bowel sounds Extremities: no edema Patient made urine yesterday and successfully completed trial of void. Patient can continue to take tamsulosin 0.4 mg daily Patient to be discharged home by orthopedic service
[2016-12-18] MEDS ORDERED: FLM4 PO (10:33)
[2016-12-18] MEDS: KETOROLAC TROMETHAMINE 30 MG/ML VIAL IV PRN (11:18)
== END 2016-12-18 11:45 | disposition home or self-care (01) | DRG 460 ==
LOC: C.ACU 05:43 → C.MSW 07:00 → ENRESERV 10:13
PROVIDERS: ADMIT Orthopaedic Surgery Orthopaedic Surgery of the Spine; ATTEND Orthopaedic Surgery Orthopaedic Surgery of the Spine
PROC: 0ST40ZZ Resection of Lumbosacral Disc, Open Approach (ICD-10-PCS; principal; 2016-12-15 07:45)
PROC: 0SG30A1 (ICD-10-PCS; principal; 2016-12-15 07:45)
DX: M48.06 Spinal stenosis, lumbar region (principal); R33.9 Retention of urine, unspecified; N18.3 Chronic kidney disease, stage 3 (moderate); E78.5 Hyperlipidemia, unspecified; I12.9 Hypertensive chronic kidney disease with stage 1 through stage 4 chronic kidney disease, or unspecified chronic kidney disease; Z79.82 Long term (current) use of aspirin; Z79.899 Other long term (current) drug therapy

== ENCOUNTER 2019-01-26 03:07 | Inpatient (IN) ==
[2019-01-26] MEDS ORDERED: NITROGLYCERIN SL 0.4 MG/TAB TAB SL STA (03:46)
[2019-01-26 03:58] LABS: Basophils # (auto) 0.03 K/uL (0-0.2); Basophils % (auto) 0.3 %; Eosinophils # (auto) 0.32 K/uL (0-0.5); Eosinophils % (auto) 2.7 %; Hematocrit (blood only) 40.1 % (42-52); Hemoglobin 14.4 g/dL (14.0-18.0); Immature Granulocytes # (auto) 0.04 K/uL (0.00-0.02); Immature Granulocytes % (auto) 0.3 %; Lymphocytes # (auto) 2.01 K/uL (1.2-3.4); Lymphocytes % (auto) 17.1 %; Mean Corpuscular Hemoglobin 31.6 pg (25-34); Mean Corpuscular Hgb Conc 35.9 g/dL (32-36); Mean Corpuscular Volume 87.9 fL (80-100); Mean Platelet Volume 8.9 fL (7.4-10.4); Monocytes # (auto) 1.09 K/uL (0.11-0.59); Monocytes % (auto) 9.3 %; Neutrophils # (auto) 8.29 K/uL (1.4-6.5); Neutrophils % (auto) 70.3 %; Platelet Count 195 K/uL (130-400); RDW Coefficient of Variation 13.6 % (11.5-14.5); RDW Standard Deviation 43.5 fL (36.4-46.3); Red Blood Count 4.56 M/uL (4.7-6.1); White Blood Count 11.78 K/uL (4.8-10.8)
[2019-01-26] MEDS: NITROGLYCERIN SL 0.4 MG/TAB TAB SL PRN ×2 (03:59→04:05)
[2019-01-26] MEDS ORDERED: NITROGLYCERIN 2% OINTMENT 30GM TUBE EXT ONE (04:13)
[2019-01-26 04:18] LABS: Alanine Aminotransferase 34 U/L (12-78); Albumin Level 4.2 gm/dl (3.4-5.0); Aspartate Aminotransferase 20 U/L (15-37); BUN Creatinine Ratio 17.4 (10-20); Bilirubin Direct 0.1 mg/dl (0-0.2); Blood Urea Nitrogen 33 mg/dl (7-18); Calcium 9.8 mg/dl (8.5-10.1); Carbon Dioxide 30 mmol/L (21-32); Chloride 102 mmol/L (98-107); Creatinine Clr Calc Pharmacy 39.7 ml/min; Est GFR (African American) 41.9; Est GFR (Non-African American) 36.2; Glucose 145 mg/dl (70-99); Lipase 264 U/L (73-393); Potassium 3.1 mmol/L (3.5-5.1); Sodium 138 mmol/L (136-145)
[2019-01-26 04:23] LABS: Alkaline Phosphatase 76 U/L (45-117); Bilirubin,Total 0.5 mg/dl (0.2-1); Total Protein 8.6 gm/dl (6.4-8.2); Troponin I < 0.015 ng/ml (0-0.045)
--- NOTE | 2019-01-26 06:26 | XRay Report ---
XR chest 1V portable HISTORY: 68 years-old Male Chest Pain acute atypical chest pain COMPARISON: Chest radiograph 12/09/2016 TECHNIQUE: Portable AP view of the chest FINDINGS: Cardiomediastinal and hilar silhouettes are within normal limits. There is no pneumothorax, pleural e ffusion, focal airspace consolidation or overt pulmonary edema. Bones of the chest appear grossly int act. IMPRESSION: No acute process. The above report was generated using voice recognition software. It may contain grammatical, syntax o r spelling errors. Electronically signed by: Paul Newman M.D. 01/26/2019 6:25 AM
[2019-01-26] MEDS ORDERED: MoRPHine SULFATE 2 MG/ML CARP IV PRN (07:12)
[2019-01-26] MEDS ORDERED: POTASSIUM CHLORIDE 20 MEQ TABCR PO STA (07:12)
[2019-01-26] MEDS ORDERED: ACETAMINOPHEN 325 MG TAB PO PRN (07:12)
[2019-01-26] MEDS ORDERED: ONDANSETRON INJ 2 MG/ML 2 ML VIAL IV PRN (07:12)
[2019-01-26] MEDS ORDERED: NITROGLYCERIN SL 0.4 MG/TAB TAB SL PRN (07:12)
--- NOTE | 2019-01-26 08:34 | History and Physical Report ---
DATE OF ADMISSION: 01/26/2019 CHIEF COMPLAINT: Chest pain. HISTORY OF PRESENT ILLNESS: This is a 68-year-old male with past medical history significant for hypertension, hypertriglyceridemia, hyperlipidemia, prediabetes, obstructive sleep apnea, CPAP, chronic kidney disease stage III, chronic ischemic heart disease, history of endoleak post-endovascular aneurysm repair, GERD, trigeminal neuralgia, who presents with chest pain. The patient woke up in the night with jaw pain in both the jaws, moderate in severity, and the pain is radiating to the chest, pressure like feeling. When he ambulated, the pain got worse. No nausea, no dizziness, no shortness of breath and because of pain he came to the ER, given nitroglycerin, the pain is almost relieved, it is only 1/10 to 2/10 in severity. Has some headache from the nitro. Currently resting comfortable and hemodynamically stable. He says the blood pressure runs okay at home. Denies any dizziness, no blurred vision, no earache, no runny nose, no sore throat, no difficulty swallowing. Appetite is okay. Sleeps okay. Ambulates fine. No chest pain, no shortness of breath on climbing steps. No nausea, no vomiting, no abdominal pain. Normal bowel and bladder movements. No hematuria, no hematochezia, no melena, no burning micturition, no swelling in the legs, no rash. No recent weight gain or weight loss. ALLERGIES: No known drug allergies. PAST MEDICAL HISTORY: As mentioned above. PAST SURGICAL HISTORY: Abdominal aortic dissection repair, left heart catheterization, colonoscopy, EGD with endoscopic ultrasound, lumbar spine injection, right knee meniscal tear repair, right thumb tendon repair, left shoulder repair, appendectomy. MEDICATIONS: The patient is on allopurinol 100 mg p.o. daily, minoxidil 5 mg p.o. b.i.d., MetroGel 1% 2 times daily, clonidine 0.1 mg p.o. b.i.d., lovastatin 40 mg p.o. daily, Zetia 10 mg p.o. daily, felodipine ER 5 mg p.o. daily, fenofibrate 200 mg daily, indapamide 5 mg daily, spironolactone 25 mg daily, potassium chloride 10 mEq p.o. b.i.d., irbesartan 150 mg p.o. b.i.d., Toprol-XL 25 mg p.o. daily, Zantac 150 mg p.o. daily, hydrocodone/acetaminophen 5/325 mg one to two tablets every 8 hours p.r.n. pain, carbamazepine ER 200 mg p.o. b.i.d., amoxicillin 2 grams 1 hour prior to procedure, magnesium 400 mg p.o. daily, vitamin D 2000 units p.o. daily, glucosamine chondroitin 1 pill b.i.d., omega 3 fatty acids 2 tablets daily, aspirin 325 mg p.o. daily, vitamin C 1000 mg p.o. b.i.d. FAMILY HISTORY: Significant for father had lung cancer and PA at age of 46. SOCIAL HISTORY: . No smoking, alcohol rare, no drug use. REVIEW OF SYSTEMS: As per HPI. Rest of the review of systems negative. PHYSICAL EXAMINATION: GENERAL: The patient is of moderate build, not in acute distress. VITAL SIGNS: Temperature 37, pulse 95, respiratory rate 12, blood pressure 132/95, oxygen 94% on room air. HEENT: No pallor, no icterus. Pupils equal, round, and reactive to light. Extraocular muscles intact. NECK: No JVD, no neck masses, no carotid bruit. CARDIOVASCULAR: S1, S2 heard, regular rate and rhythm, no murmur, no gallop. RESPIRATORY SYSTEM: Normal AP diameter. No accessory muscle use. No wheezing, no crackles. ABDOMEN: Soft, bowel sounds present, nontender. No distention. CENTRAL NERVOUS SYSTEM: Alert and awake and oriented. Obeys commands. Moves extremities. EXTREMITIES: No edema, no erythema. LABORATORY DATA: WBC 11.7, hemoglobin 14.4, hematocrit 40.1, platelets 195. Sodium 138, potassium 3.1, chloride 102, bicarbonate 30, BUN 33, creatinine 1.89, serum glucose 145, calcium 9.8, total bilirubin 0.5, direct bilirubin 0.1, AST 20, ALT 34, alkaline phosphatase 76, troponin I less than 0.015. Lipase 264. IMAGING DATA: Chest x-ray, no acute findings seen. EKG: Normal sinus rhythm with a first-degree AV block at a rate of 78, no acute ST changes seen. ASSESSMENT AND PLAN: This is a 68-year-old male who presents with chest pain. 1. Chest pain. The patient's Initial troponin and EKG unremarkable. The patient has risk factors of hypertension, prediabetes, hyperlipidemia, and also is status post abdominal aortic aneurysm repair. Has chronic kidney disease, family history of premature myocardial infarction. We will monitor in the tele floor. We will keep him n.p.o. until seen by cardiology. Serial cardiac enzymes, echocardiogram. Nitroglycerin p.r.n. Further recommendations as per cardiology. 2. Prediabetes. Follow hemoglobin A1c levels. Currently n.p.o. When diet started will place him on diabetic diet. 3. Hypertension. He is on multiple hypertensive medications at home. He is on Toprol-XL, indapamide, spironolactone, irbesartan, felodipine, clonidine, minoxidil. We will monitor his blood pressure. 4. Hyperlipidemia. We will continue Crestor and Zetia and fenofibrate. Follow his fasting lipid profile. 5. History of sleep apnea. Continue CPAP at bedtime. 6. Gastroesophageal reflux disease. Continue Zantac. 7. Chronic kidney disease stage III, baseline creatinine 1.5 to 1.8, current creatinine of 1.8. We will follow the labs. 8. Trigeminal neurology, on carbamazepine. 9. Deep venous thrombosis prophylaxis, sequential compression devices for now. 10. Disposition: Closely observe in tele floor. Expect to discharge home and follow with family doctor. Level 1 full code. MTDD
--- NOTE | 2019-01-26 08:51 | Emergency Department Note ---
Entered by Buddy Dalton acting as a scribe for Baldemar Logan MD ED Provider Note Name: Dax Orozco Age: 68 Arrives Via: Triage Informant: Self CC: Chest pain HPI: 68 y/o male arrives for evaluation of constant chest pain beginning a few hours ago. The patient states before he went to sleep last night, he developed jaw pain that worsened when walked. He reports he then developed chest pain. The patient notes deep breathing causes his chest pain to worsen, and it is located in the middle of his chest. He states he has a history of HTN and takes medication for it. The patient notes he takes 325mg of aspirin daily, and he took his most recent dose just prior to coming to the ED. The patient reports he did have a catheterization in [place] a few years ago, but he has not had a stress test in a while because he cannot run on a treadmill. He notes a history of an abdominal aneurysm that required stent placement. The patient states his father had a severe DC when he was in his early 40s. He denies a smoking history, falls, recent injury, daily alcohol use, drug use, abdominal pain, LOC, swelling to his legs, recent travel, and a history of a clotting disorder. ROS: See above HPI for pertinent positives & negatives. A total of 10 systems reviewed and were otherwise negative. Past Medical History: HTN, CKD, dyslipidemia Past Surgical History: AAA repair, appendectomy Family History: DC Social History: Lives with family. Occasional alcohol use. Denies drug and tobacco use. Home Medications: see below Allergies none Physical: Vitals: BP 180/111, Pulse 79, Resp 18, Temp 98.6 F, O2 Sat 97 on RA Exam: GENERAL: Patient is anxious appearing and in mild acute distress. EYES: No scleral icterus, unremarkable pupils. ENT: Mucous membranes moist, no nasal congestion. NECK: No masses appreciated, no meningismus, trachea is midline. RESPIRATORY: No dyspnea. Clear to auscultation and equal bilaterally. No wheeze, no rhonchi. CARDIOVASCULAR: Regular rate and rhythm. No murmurs, rubs, gallops appreciated. GASTROINTESTINAL: Abdomen soft, non-tender, no peritonitis. Bowel sounds positive. No masses appreciated. BACK: No midline tenderness, no CVA tenderness EXTREMITIES: Normal motion all extremities, no cyanosis, no edema. NEUROLOGIC: Alert and oriented, no acute motor or sensory deficits, no focal weakness, cranial nerves grossly intact. SKIN: No rash, no jaundice, no diaphoresis. ED Course: Prior Medical Record, Triage/Nursing Notes, Medications, Allergies reviewed by Me Vital Signs: reviewed and remarkable for HTN on arrival Labs: Reviewed and remarkable for wnl cbc, bmp, trop Interventions: Saline Lock, SLNTG x 3, Nitro Paste Imaging: X ray results are stated below per my interpretation: Chest: 1 view: No infiltrate, no effusion, normal cardiac border. Moderate aortic curvature which is similar to previous. EKG: Per My Interpretation: Indication CP: Sinus 78 bpm no ectopy no ischemia. QTC 456. 1st degree AV block. Similar to 12/09/16 Consults: Dr Trejo Reassessments/Times: 0341: Past medical records reviewed. The patient was evaluated in room C10. A complete history and physical exam was performed. 0454: Upon reevaluation, the patient is resting comfortably with minimal pain. I discussed laboratory and radiographic results with him. He verbalized agreement of the treatment plan. The patient will be evaluated for further management and care. 0458: I reviewed the patient's case with Dr. Trejo, [facility] Hospitalist. He will evaluate the patient for further management. Blood pressure: Elevated - Referred to Hospitalist Disposition: Hospitalization Differentials: Cardiac Ischemia (STEMI, NSTEMI, Unstable Angina, etc), Aortic Dissection, Arrhythmia, Pulmonary Embolism, Pneumonia, Pneumothorax, MSK, Infectious, Pericarditis/Myocarditis, Esophageal Rupture, Gastrointestinal, amongst other pathologies entertained. Medical Decision Makin yr old male with severe HTN history as well as previous aortic aneurysm repair (abdomen), who's father had early DC. Patient with bilateral jaw pain from substernal chest. Worse with exertion. Initial EKG OK and trop negative. BP down nicely with just SLNG as is pain. No history of PE and symptoms do not see consistent with pe/dvt nor dissection at this time given resolution with nitro. Already took [employer]CH[employer]. With risks he will need to come in for furhter evaluation. Will defer further work-up/imaging to hospitalist. Impression: Substernal Chest Pain Hypertension Baldemar Logan MD The scribe's documentation has been prepared under my direction and personally reviewed by me in its entirety. I confirm that the note above accurately reflec ts all work, treatment, procedures, and medical decision making performed by me. Impression & Plan Substernal chest pain, Hypertension Past Med/Surg History Medical History Abdominal aneurysm CKD (chronic kidney disease) stage 3, GFR 30-59 ml/min Dyslipidemia, goal LDL below 70 Resistant hypertension Surgical History H/O endovascular stent graft for abdominal aortic aneurysm Hx of cardiac cath Social History Preferred Language: [place] Hoist Cylinder Loader Required: No Beliefs That Will Affect Care: None Current Living Situation: Spouse Feels Safe at Home: Yes Safety Concerns: Feels Safe At This Time Smoking Status: Never smoker Hx Alcohol Use: No Hx Substance Use: No Results & Data Vital Signs Vital Signs - 24 hr 01/26/19 03:21 01/26/19 04:00 01/26/19 04:05 Temperature 37 C Temperature Source Oral Sepsis Recent Fever Within 48 Hours No Sepsis New/Unexplained Change in Mental Status No Sepsis Action Taken by Nursing No Action Required Pulse Rate 79 Pulse Rate [Left] 90 90 Respiratory Rate 18 12 12 Respiratory Effort / Characteristics Non-Labored Respiratory Depth Normal Respiratory Pattern Blood Pressure 180/111 H Blood Pressure [Left Arm] 168/105 H 125/106 H Blood Pressure Mean 134 Blood Pressure Mean [Left Arm] 126 112 Blood Pressure Position [Left Arm] Semi-fowlers Pulse Oximetry 97 95 92 Oxygen Delivery Method Room Air Room Air 01/26/19 04:10 Temperature Temperature Source Sepsis Recent Fever Within 48 Hours Sepsis New/Unexplained Change in Mental Status Sepsis Action Taken by Nursing Pulse Rate Pulse Rate [Left] 95 H Respiratory Rate 12 Respiratory Effort / Characteristics Non-Labored Respiratory Depth Normal Respiratory Pattern Regular Blood Pressure Blood Pressure [Left Arm] 132/95 Blood Pressure Mean Blood Pressure Mean [Left Arm] 107 Blood Pressure Position [Left Arm] Semi-fowlers Pulse Oximetry 94 Oxygen Delivery Method Room Air Laboratory Data Result diagrams: 01/26/19 03:45 01/26/19 03:45 Lab Results 01/26/19 01/26/19 01/26/19 Range/Units 03:45 03:45 03:45 WBC 11.78 H (4.8-10.8) K/uL RBC 4.56 L (4.7-6.1) M/uL Hgb 14.4 (14.0-18.0) g/dL Hct 40.1 L (42-52) % MCV 87.9 (80-100) fL MCH 31.6 (25-34) pg MCHC 35.9 (32-36) g/dL RDW Std Deviation 43.5 (36.4-46.3) fL RDW Coeff of Zaria 13.6 (11.5-14.5) % Plt Count 195 (130-400) K/uL MPV 8.9 (7.4-10.4) fL Immature Gran % (Auto) 0.3 % Neut % (Auto) 70.3 % Lymph % (Auto) 17.1 % Daniels % (Auto) 9.3 % Eos % (Auto) 2.7 % Baso % (Auto) 0.3 % Immature Gran # (Auto) 0.04 H (0.00-0.02) K/uL Neut # (Auto) 8.29 H (1.4-6.5) K/uL Lymph # (Auto) 2.01 (1.2-3.4) K/uL Daniels # (Auto) 1.09 H (0.11-0.59) K/uL Eos # (Auto) 0.32 (0-0.5) K/uL Baso # (Auto) 0.03 (0-0.2) K/uL ESR 26 H (0-14) mm/hr Sodium 138 (136-145) mmol/L Potassium 3.1 L (3.5-5.1) mmol/L Chloride 102 (98-107) mmol/L Carbon Dioxide 30 (21-32) mmol/L Anion Gap 6.0 (3-11) BUN 33 H (7-18) mg/dl Creatinine 1.89 H (0.6-1.4) mg/dl Est Cr Clr Drug Dosing 39.7 ml/min Est GFR ( Amer) 41.9 Est GFR (Non-Af Amer) 36.2 BUN/Creatinine Ratio 17.4 (10-20) Glucose 145 H (70-99) mg/dl Calcium 9.8 (8.5-10.1) mg/dl Total Bilirubin 0.5 (0.2-1) mg/dl Direct Bilirubin 0.1 (0-0.2) mg/dl AST 20 (15-37) U/L ALT 34 (12-78) U/L Alkaline Phosphatase 76 (45-117) U/L Troponin I < 0.015 (0-0.045) ng/ml Total Protein 8.6 H (6.4-8.2) gm/dl Albumin 4.2 (3.4-5.0) gm/dl Lipase 264 (73-393) U/L Administered Medications Hydrocodone Bitart/Acetaminophen ([place] 5/325) 1 tab PO Q8 PRN PRN Reason: Pain Stop: 02/09/19 07:11 Last Admin: 01/26/19 15:37 Dose: 1 tab Documented by: [id number] Allopurinol (Zyloprim) 100 mg PO QAM SUPA Stop: 02/25/19 08:59 Last Admin: 01/26/19 10:00 Dose: 100 mg Documented by: [id number] Ascorbic Acid (Vitamin C) 1,000 mg PO BID SUPA Stop: 02/25/19 08:59 Last Admin: 01/26/19 20:34 Dose: 1,000 mg Documented by: [id number] Admin: 01/26/19 10:04 Dose: 1,000 mg Documented by: [id number] Aspirin (Ecotrin) 325 mg PO DAILY SUPA Stop: 02/25/19 08:59 Last Admin: 01/26/19 10:01 Dose: 325 mg Documented by: [id number] Carbamazepine (Tegretol Xr) 200 mg PO BID SUPA Stop: 02/25/19 08:59 Last Admin: 01/26/19 20:33 Dose: 200 mg Documented by: [id number] Admin: 01/26/19 10:00 Dose: 200 mg Documented by: [id number] Clonidine HCl (Catapres) 0.1 mg PO AMHS SUPA Stop: 02/25/19 08:59 Last Admin: 01/26/19 20:29 Dose: 0.1 mg Documented by: [id number] Admin: 01/26/19 10:00 Dose: 0.1 mg Documented by: [id number] Colchicine (Colcrys) 0.6 mg PO BID SUPA Stop: 02/25/19 20:59 Last Admin: 01/26/19 20:31 Dose: 0.6 mg Documented by: [id number] Ezetimibe (Zetia) 10 mg PO QAM SUPA Stop: 02/25/19 08:59 Last Admin: 01/26/19 10:01 Dose: 10 mg Documented by: [id number] Felodipine (Plendil) 5 mg PO DAILY SUPA Stop: 02/25/19 08:59 Last Admin: 01/26/19 10:00 Dose: 5 mg Documented by: [id number] Methylprednisolone 60 mg/ (Syringe) 0.96 mls @ 1.5 mls/min IV BID SUPA Stop: 02/25/19 20:59 Last Admin: 01/26/19 20:28 Dose: 1.5 mls/min Documented by: [id number] Indapamide (Lozol) 2.5 mg PO BID SUPA Stop: 02/25/19 08:59 Last Admin: 01/26/19 20:32 Dose: 2.5 mg Documented by: [id number] Admin: 01/26/19 10:04 Dose: 2.5 mg Documented by: [id number] Irbesartan (Avapro) 150 mg PO BID SUPA Stop: 02/25/19 08:59 Last Admin: 01/26/19 20:29 Dose: 150 mg Documented by: [id number] Admin: 01/26/19 10:01 Dose: 150 mg Documented by: [id number] Magnesium Oxide (Mag-Ox) 400 mg PO QPM SUPA Stop: 02/25/19 20:59 Last Admin: 01/26/19 20:33 Dose: 400 mg Documented by: [id number] Metoprolol Succinate (Toprol Xl) 25 mg PO DAILY SUPA Stop: 02/25/19 08:59 Last Admin: 01/26/19 10:03 Dose: 25 mg Documented by: [id number] Minoxidil (Loniten) 10 mg PO DAILY SUPA Stop: 02/25/19 08:59 Last Admin: 01/26/19 10:03 Dose: 10 mg Documented by: [id number] Miscellaneous (Order Awaiting Action) 1 ea N/A QS SUPA Stop: 02/25/19 07:59 Last Admin: 01/27/19 01:05 EST Dose: Not Given Documented by: [id number] Admin: 01/26/19 15:50 Dose: 1 ea Documented by: [id number] Admin: 01/26/19 12:33 Dose: Not Given Documented by: [id number] Morphine Sulfate (Morphine Sulfate) 2 mg IV Q30M PRN PRN Reason: Chest Pain Stop: 02/09/19 07:11 Last Admin: 01/26/19 11:20 Dose: 2 mg Documented by: [id number] Potassium Chloride (Klor-Con M10) 10 meq PO BID SUPA Stop: 02/25/19 08:59 Last Admin: 01/26/19 20:31 Dose: 10 meq Documented by: [id number] Admin: 01/26/19 10:04 Dose: 10 meq Documented by: [id number] Rosuvastatin Calcium (Crestor) 40 mg PO DAILY SUPA Stop: 02/25/19 08:59 Last Admin: 01/26/19 10:00 Dose: 40 mg Documented by: [id number] Spironolactone (Aldactone) 25 mg PO DAILY SUPA Stop: 02/25/19 08:59 Last Admin: 01/26/19 10:03 Dose: 25 mg Documented by: [id number] Vitamin D (Vitamin D3) 2,000 units PO DAILY SUPA Stop: 02/25/19 08:59 Last Admin: 01/26/19 10:01 Dose: 2,000 units Documented by: [id number] Discontinued Medications Fentanyl Citrate (Fentanyl Citrate) Confirm Administered Dose 100 mcg .ROUTE .STK-MED ONE Stop: 01/26/19 11:09 Last Increment: 01/26/19 11:55 Dose: 50 mcg Documented by: [id number] Heparin Sodium (Porcine) (Heparin Iv Bolus (Incinerator Plant Laborer Use Only)) Confirm Administered Dose 10,000 units .ROUTE .STK-MED ONE Stop: 01/26/19 11:09 Last Admin: 01/26/19 11:56 Dose: 5,000 units Documented by: [id number] Heparin Sodium/Sodium Chloride (Heparin/Nss 1000 Unit/500ml Flush Bag) Confirm Administered Dose 3,000 units IV .STK-MED ONE Stop: 01/26/19 11:09 Last Admin: 01/26/19 11:56 Dose: 3,000 units Documented by: [id number] Methylprednisolone 60 mg/ (Syringe) 0.96 mls @ 1.5 mls/min IV NOW STA Stop: 01/26/19 10:21 Last Admin: 01/26/19 10:48 Dose: 1.5 mls/min Documented by: [id number] Sodium Chloride (Nss 1000ml) 1,000 mls @ 80 mls/hr IV .[id number] [facility] Stop: 02/25/19 10:44 Last Infusion: 01/26/19 12:32 Dose: 0 mls/hr Documented by: [id number] Admin: 01/26/19 10:53 Dose: 80 mls/hr Documented by: [id number] Sodium Chloride (Nss 1000ml) 1,000 mls @ 100 mls/hr IV .Q10H [facility] Stop: 01/26/19 19:59 Last Infusion: 01/26/19 22:40 Dose: 0 mls/hr Documented by: [id number] Admin: 01/26/19 12:35 Dose: 100 mls/hr Documented by: [id number] Midazolam HCl (Versed) Confirm Administered Dose 2 mg .ROUTE .STK-MED ONE Stop: 01/26/19 11:09 Last Increment: 01/26/19 11:56 Dose: 1 mg Documented by: [id number] Nicardipine HCl (Cardene) Confirm Administered Dose 25 mg .ROUTE .STK-MED ONE Stop: 01/26/19 11:09 Last Admin: 01/26/19 11:55 Dose: 25 mg Documented by: [id number] Nitroglycerin (Nitrostat) 0.4 mg SL NOW STA Stop: 01/26/19 03:47 Last Admin: 01/26/19 03:53 Dose: 0.4 mg Documented by: [id number] Nitroglycerin (Nitrostat) 0.4 mg SL PRN PRN PRN Reason: Chest Pain Stop: 02/25/19 03:45 Last Admin: 01/26/19 04:05 Dose: 0.4 mg Documented by: [id number] Admin: 01/26/19 03:59 Dose: 0.4 mg Documented by: [id number] Nitroglycerin (Nitro-Bid 2%) 1 inch EXT NOW ONE Stop: 01/26/19 04:14 Last Admin: 01/26/19 04:18 Dose: 1 inch Documented by: [id number] Nitroglycerin/Dextrose (Nitroglycerin/D5w 100 Mcg/Ml 20ml Syringe) Confirm Administered Dose 2,000 mcg .ROUTE .STK-MED ONE Stop: 01/26/19 11:10 Last Admin: 01/26/19 11:56 Dose: 2,000 mcg Documented by: [id number] Potassium Chloride (Klor-Con M20) 40 meq PO NOW STA Stop: 01/26/19 07:13 Last Admin: 01/26/19 10:00 Dose: 40 meq Documented by: [id number] Medical Decision Making Laboratory Data Result diagrams: 01/26/19 03:45 01/26/19 03:45 Lab Results 01/26/19 01/26/19 01/26/19 Range/Units 03:45 03:45 03:45 WBC 11.78 H (4.8-10.8) K/uL RBC 4.56 L (4.7-6.1) M/uL Hgb 14.4 (14.0-18.0) g/dL Hct 40.1 L (42-52) % MCV 87.9 (80-100) fL MCH 31.6 (25-34) pg MCHC 35.9 (32-36) g/dL RDW Std Deviation 43.5 (36.4-46.3) fL RDW Coeff of Zaria 13.6 (11.5-14.5) % Plt Count 195 (130-400) K/uL MPV 8.9 (7.4-10.4) fL Immature Gran % (Auto) 0.3 % Neut % (Auto) 70.3 % Lymph % (Auto) 17.1 % Daniels % (Auto) 9.3 % Eos % (Auto) 2.7 % Baso % (Auto) 0.3 % Immature Gran # (Auto) 0.04 H (0.00-0.02) K/uL Neut # (Auto) 8.29 H (1.4-6.5) K/uL Lymph # (Auto) 2.01 (1.2-3.4) K/uL Daniels # (Auto) 1.09 H (0.11-0.59) K/uL Eos # (Auto) 0.32 (0-0.5) K/uL Baso # (Auto) 0.03 (0-0.2) K/uL ESR 26 H (0-14) mm/hr Sodium 138 (136-145) mmol/L Potassium 3.1 L (3.5-5.1) mmol/L Chloride 102 (98-107) mmol/L Carbon Dioxide 30 (21-32) mmol/L Anion Gap 6.0 (3-11) BUN 33 H (7-18) mg/dl Creatinine 1.89 H (0.6-1.4) mg/dl Est Cr Clr Drug Dosing 39.7 ml/min Est GFR ( Amer) 41.9 Est GFR (Non-Af Amer) 36.2 BUN/Creatinine Ratio 17.4 (10-20) Glucose 145 H (70-99) mg/dl Calcium 9.8 (8.5-10.1) mg/dl Total Bilirubin 0.5 (0.2-1) mg/dl Direct Bilirubin 0.1 (0-0.2) mg/dl AST 20 (15-37) U/L ALT 34 (12-78) U/L Alkaline Phosphatase 76 (45-117) U/L Troponin I < 0.015 (0-0.045) ng/ml Total Protein 8.6 H (6.4-8.2) gm/dl Albumin 4.2 (3.4-5.0) gm/dl Lipase 264 (73-393) U/L [facility] Narrative Discharge Plan Visit Data *Final* Discharge Date/Time: 01/26/19 07:05 Chief Complaint: Cardiac Assessment Stated Complaint: CHEST PAIN,JAW PAIN ED Provider: Baldemar Logan Discharge Problem: Substernal chest pain, Hypertension Patient Disposition: Admitted As Inpatient Discharge Instructions Interventions: ED Discharge Assessment Last Done: 01/26/19 07:05 Discharge Problem: Hypertension Qualifiers: Hypertension type: essential hypertension Qualified Code(s): I10 - Essential (primary) hypertension The scribe's documentation has been prepared under my direction and personally reviewed by me in its entirety. I confirm that the note above accurately reflects all work, treatment, procedures, and medical decision making performed by me.
[2019-01-26] MEDS ORDERED: NON-FORMULARY MEDICATION (Glucos Sul 2kcl-Msm-Chond-C-Mn [Glucosamine Chondroitin] 1 CAP) PO SCH (09:00)
--- NOTE | 2019-01-26 09:40 | Cardiology Consultation ---
Date of Consultation January 26, 2019 Assessment & Plan (1) Chest pain: (2) HTN (hypertension): (3) S/P AAA repair: Repeat twelve-lead ECG now to assess for any evolving ischemic changes. Repeat troponin, ESR, CRP, and d-dimer ordered for further assessment of discomfort. Consider VQ scan if d-dimer positive. Prefer to avoid IV contrast with patient's renal insufficiency. Blood pressure improving. Begin treatment for pleurisy / possible pericarditis with IV corticosteroid therapy. Prefer to avoid NSAIDs with renal insufficiency. Consider addition of colchicine. Further recommendations pending results of testing as clinical course unfolds. Addendum: Repeat ECG reviewed with [address] elevation in leads I and aVL. Patient reports worsening discomfort, now 6/10 with a pleuritic component. Heart alert called for urgent coronary angiography +/- PCI. 50 minutes critical care time spent evaluating patient, for bleeding plan of care, reviewing studies, and discussion of condition/plan with family member and consultants. History of Present Illness Reason for Consultation: Chest pain Requesting Physician: Dr. Trejo Attending Physician: Valeria Ballesteros MD History of Present Illness 68-year-old patient presents for evaluation of jaw discomfort beginning 11 AM 01/25/2019. Discomfort severe at times during the day. Patient did not take any medication. Discomfort worse with activity throughout the day yesterday. He went to sleep and awoke at approximately 2:58 AM with severe chest tightness. He became concerned. Brought to the emergency department by his . Discomfort worse with deep inspiration and activity. Treated with sublingual nitroglycerin and Nitropaste on admission with improvement. ECG without ischemic changes. Initial troponin undetectable with a follow-up troponin 3 hours later within normal range. Prior cardiac catheterization performed April 2009 demonstrating mild nonobstructive coronary artery disease. Patient carries a history of abdominal aortic aneurysm status post stent graft placement, CKD, and resistant hypertension. Patient seen and examined at the bedside. Preliminary review of resting 2D transthoracic echocardiogram demonstrates normal left ventricular systolic function, normal wall motion, no significant valvular pathology. Visualized portions of the ascending aorta and aortic arch without aneurysm or dissection. No dysrhythmias on telemetry. Discomfort has improved since admission. Currently rates tightness as 2/10. Sharp substernal pain with deep inspiration. Denies recent travel, lower extremity edema, or calf tenderness. Denies fever, chills, or sick contacts. R eports dry cough over the summer. No recent allergic symptoms. Lexiscan nuclear cardiac stress test negative for ischemia 04/10/2018. Gated SPECT imaging reveals normal myocardial thickening and wall motion. The left ventricular ejection fraction was calculated to be >70%. Allergies Allergy/AdvReac Type Severity Reaction Status Date / Time No Known Allergies Allergy Unknown Verified 01/26/19 05:00 Home Medications Home Medications Medication Instructions Recorded Confirmed Type allopurinol 100 mg PO QAM 01/26/19 01/26/19 History ascorbic acid (vitamin C) 1 g PO BID 01/26/19 01/26/19 History aspirin 325 mg PO DAILY 01/26/19 01/26/19 History carbamazepine 200 mg PO BID 01/26/19 01/26/19 History cholecalciferol (vitamin D3) 2,000 unit PO DAILY 01/26/19 01/26/19 History [Vitamin D3] clonidine HCl 0.1 mg PO AMHS 01/26/19 01/26/19 History ezetimibe 10 mg PO QAM 01/26/19 01/26/19 History felodipine 5 mg PO DAILY 01/26/19 01/26/19 History fenofibrate micronized 200 mg PO DAILY 01/26/19 01/26/19 History glucos sul [id number]-C-Mn 1 cap PO BID 01/26/19 01/26/19 History [Glucosamine Chondroitin] hydrocodone-acetaminophen 1 tab PO Q8 PRN 01/26/19 01/26/19 History indapamide 2.5 mg PO BID 01/26/19 01/26/19 History irbesartan 150 mg PO BID 01/26/19 01/26/19 History magnesium oxide 400 mg PO QPM 01/26/19 01/26/19 History metoprolol succinate 25 mg PO DAILY 01/26/19 01/26/19 History metronidazole 1 applic TOPICAL DAILY 01/26/19 01/26/19 History minoxidil 10 mg PO DAILY 01/26/19 01/26/19 History omega [id number]-[id number]-fish oil [Fish Oil] 2 cap PO BID 01/26/19 01/26/19 History potassium chloride 10 meq PO BID 01/26/19 01/26/19 History rosuvastatin 40 mg PO DAILY 01/26/19 01/26/19 History spironolactone 25 mg PO DAILY 01/26/19 01/26/19 History Patient History Medical History Abdominal aneurysm CKD (chronic kidney disease) stage 3, GFR 30-59 ml/min Dyslipidemia, goal LDL below 70 Resistant hypertension Surgical History H/O endovascular stent graft for abdominal aortic aneurysm Hx of cardiac cath Social History Preferred Language: Welsh Pigment Weigher Required: No Beliefs That Will Affect Care: None Current Living Situation: Spouse Feels Safe at Home: Yes Safety Concerns: Feels Safe At This Time Smoking Status: Never smoker Hx Alcohol Use: No Hx Substance Use: No Review of Systems Review of Systems: All systems reviewed & are unremarkable except as noted in HPI & below Physical Exam Physical Exam: General: NAD, AAO x3, well nourished. HEENT: Normocephalic. Atraumatic. Conjunctiva pink, no scleral icterus. Neck: No carotid bruits, the carotid upstrokes are brisk. No JVD. No HJR Heart: Regular normal S-1 and S-2 no S-3 or S-4 gallop. No murmurs or rub appreciated. PMI is not displaced. No RV heave. Lungs: Shallow breathing due to pleuritic discomfort, clear bilateral without rales , rhonchi, or wheeze. Abdomen: Normal bowel sounds. Soft. Nontender. No masses or organomegaly. No abdominal bruits. Extremities: No clubbing, cyanosis, or edema. Pulses: radial=2/4, Dorsalis pedis =2/4, posterior tibial=2/4. Neuro: Cranial nerves grossly intact. No focal motor deficit. Results & Data Vital Signs (Past 12 Hours) Vital Signs Temp Pulse Pulse Resp BP BP Pulse Ox 01/26/19 07:59 36.9 C 73 18 144/87 H 96 01/26/19 07:05 78 18 138/89 97 01/26/19 06:57 37.0 C 77 18 173/91 H 95 01/26/19 04:10 95 H 12 132/95 94 01/26/19 04:05 90 12 125/106 H 92 01/26/19 04:00 90 12 168/105 H 95 01/26/19 03:21 37 C 79 18 180/111 H 97 Laboratory Results General: NAD, AAO x3, well nourished. HEENT: Normocephalic. Atraumatic. Conjunctiva pink, no scleral icterus. Neck: No carotid bruits, the carotid upstrokes are brisk. No JVD. No HJR Heart: Regular normal S-1 and S-2 no S-3 or S-4 gallop. No murmurs or rub appreciated. PMI is not displaced. No RV heave. Lungs: Clear bilateral without rales , rhonchi, or wheeze. Abdomen: Normal bowel sounds. Soft. Nontender. No masses or organomegaly. No abdominal bruits. Extremities: No clubbing, cyanosis, or edema. Pulses: radial=2/4, Dorsalis pedis =2/4, posterior tibial=2/4. Neuro: Cranial nerves grossly intact. No focal motor deficit. (1) HTN (hypertension) Hypertension type: essential hypertension Qualified Code(s): I10 - Essential (primary) hypertension
[2019-01-26] MEDS: ALLOPURINOL 100 MG TAB PO SCH (10:00)
[2019-01-26] MEDS: ROSUVASTATIN CALCIUM 20 MG TAB PO SCH (10:00)
[2019-01-26] MEDS: FELODIPINE 5 MG TABCR PO SCH (10:00)
[2019-01-26] MEDS: CARBAMAZEPINE 200 MG TABCR PO SCH ×2 (10:00→20:33)
[2019-01-26] MEDS: cloNIDine HCl 0.1 MG TAB PO SCH ×2 (10:00→20:29)
[2019-01-26] MEDS: EZETIMIBE 10 MG TABLET PO SCH (10:01)
[2019-01-26] MEDS: IRBESARTAN 150 MG TAB PO SCH ×2 (10:01→20:29)
[2019-01-26] MEDS: ASPIRIN 325 MG ECTAB PO SCH (10:01)
[2019-01-26] MEDS: CHOLECALCIFEROL 1,000 UNITS TAB PO SCH (10:01)
[2019-01-26] MEDS ORDERED: methylPREDNISolone 125 MG/2 ML VIAL IV STA (10:03)
[2019-01-26] MEDS: SPIRONOLACTONE 25 MG TAB PO SCH (10:03)
[2019-01-26] MEDS: MINOXIDIL 2.5 MG TAB PO SCH (10:03)
[2019-01-26] MEDS: METOPROLOL SUCC 25MG EXT REL TAB PO SCH (10:03)
[2019-01-26] MEDS: POTASSIUM CHLORIDE 10 MEQ TABCR PO SCH ×2 (10:04→20:31)
[2019-01-26] MEDS: ASCORBIC ACID 500 MG TAB PO SCH ×2 (10:04→20:34)
[2019-01-26] MEDS: INDAPAMIDE 1.25 MG TAB PO SCH ×2 (10:04→20:32)
[2019-01-26] MEDS ORDERED: methylPREDNISolone 60 MG in SYRINGE 0 ML IV STA (10:20)
[2019-01-26] MEDS ORDERED: SODIUM CHLORIDE 0.9% 1000ML 1,000 ML IV SCH ×2 (10:45→12:30)
[2019-01-26 11:07] LABS: D Dimer 3060 ug/L FEU (0-500)
[2019-01-26] MEDS ORDERED: fentaNYL citrate 100 MCG/2 ML VIAL ONE (11:08)
[2019-01-26] MEDS ORDERED: NiCARDipine HCL INJ 2.5 MG/ML 10 ML AMP ONE (11:08)
[2019-01-26] MEDS ORDERED: HEPARIN (PORCINE) 1000 UNIT/ML 10 ML (CATH LAB USE ONLY) ONE (11:08)
[2019-01-26] MEDS ORDERED: MIDAZOLAM HCL 1 MG/ML 2ML VIAL ONE (11:08)
[2019-01-26] MEDS ORDERED: NITROGLYCERIN/D5W 100MCG/ML 20ML SYR ONE (11:09)
--- NOTE | 2019-01-26 11:27 | Pre Anesthesia Assessment ---
Date of Service January 26, 2019 Pre Sedation Assessment Vital Signs Temp Pulse Pulse Resp BP BP Pulse Ox 01/26/19 08:00 68 01/26/19 07:59 98.4 F 73 18 144/87 H 96 01/26/19 07:05 78 18 138/89 97 01/26/19 06:57 98.6 F 77 18 173/91 H 95 01/26/19 04:10 95 H 12 132/95 94 01/26/19 04:05 90 12 125/106 H 92 01/26/19 04:00 90 12 168/105 H 95 01/26/19 03:21 98.6 F 79 18 180/111 H 97 Cardiovascular RRR, no murmur, no edema Respiratory normal respiratory effort, lungs clear to auscultation Pre-Sedation Airway Assessment Smoking Status: Never smoker Hx Sleep Apnea: No Hx Difficult Intubation: No Short, Thick Neck: No Thyromental Distance: > or= 3.5 Finger Breadths Oral Cavity: + WNL Mallampati Class: III ASA: ASA3 Procedure Planning Contraindications for Sedation: none Current Medications Reviewed: Yes Notes The planned sedation has been discussed with the patient. Informed Consent was obtained. I have identified the patient, determined the appropriateness of sedation and have assessed the patient immediately prior to the procedure. All medicine(s) and interventions are by my order.
--- NOTE | 2019-01-26 11:29 | Cardiac Catheterization ---
[facility] Data: Regulatory Law Specialist Cardiac Status Clinical evaluation leading to the procedure CAD Presenation: STEMI Heart Failure: No Cardiogenic Shock within 24 Hours: No Cardiac Arrest within 24 Hours: No Imaging Studies Past 6 Months: Yes Stress Studies Past 6 Months: No Diagnostic Physicians Name: Sean Yap MD Status: Urgent Closure Device Percutaneous Entry Location: Radial Closure Device: Radial Band Recommendations: PCI without planned CABG Intraprocedure Events Significant Disection: No Perforation: No Cardiac Cath Procedure Full Procedure Date January 26, 2019 Pre-Procedure Diagnosis Pre-Procedure Diagnosis: Acute Coronary Syndrome AUC Score AUC Score: 8 Post-Procedure Diagnosis Post-Procedure Diagnosis: Moderate CAD Procedure(s) Performed Procedure(s) Performed: Coronary Angiography and Left Heart Cath [employer] Consultant Sean Yap MD Associate Counsel(s) Hua Estimated Blood Loss Estimated Blood Loss: 5 Medication(s) Medication(s): Fentanyl, Heparin, Lidocaine 1%, Nicardipine, Nitroglycerin and Versed Summary of Findings Indication: Suspected ACS, borderline anterolateral ST elevations on EKG Access: 6 Fr right radial artery Catheters: Moroni, pigtail Findings: LM -large caliber vessel without significant disease LAD -aneurysmal proximally, 20% mid segment after takeoff of large first caliber diagonal, tapers prior to apex. Large first and second diagonal without significant disease. Circumflex -moderate caliber, tortuous, no significant disease. High OM1, moderate caliber vessel without significant disease. RCA -very large caliber vessel, aneurysmal in the proximal to mid segment, max diameter greater than 10 mm. 40% mid segment stenosis after aneurysm. Distal luminal irregularities. Large PDA, terminal PLB without significant disease. LVEDP -3 Arterial Closure: TR band Summary: 1. Mild to moderate nonobstructive coronary artery disease -Aneurysmal proximal to mid RCA with 30 to 40% mid segment stenosis 2. Normal intracardiac filling pressure Recommendations: No coronary etiology for patient's current rest chest pain. Further management of possible pericarditis versus evaluation for noncardiac causes of chest pain per Dr. Jordan. Hemodynamics Rest Ao:: 121/70/94 Final Ao: 120/71/80 LV: 124/3 Recommendations Recommendations: PCI without planned CABG Specimens Specimens: None Radiation Exposure (mGy) 830 Contrast (mls) 60 Fluids (cc crystalloids) Fluids (cc crystalloids): 35 Drains Drains: None Anesthesia Moderate Procedural Complication(s) None Disposition PCU I attest to the content of the Intraoperative Record and any orders documented therein. Any exceptions are noted below.
[2019-01-26] MEDS: TRICOR~ORDER AWAITING ACTION SCH ×2 (12:33→15:50)
--- NOTE | 2019-01-26 13:50 | Hospitalist Progress Note ---
Date of Service January 26, 2019 Assessment & Plan (1) Chest pain: Troponin was negative x3 Cardiac cath does not show CAD as cause of chest pain Due to pleuritic nature of chest pain and EKG changes, Pericarditis is a possibility Rule out PE. Due to CKD and already been exposed to contrast for cath, will get VQ scan CRP was 0.68 Echo report noted Got methylprednisone this morning Will follow cardiology recommendations. Serial EKG (2) HTN (hypertension): Currently stable Continue irbesartan, clonidine, felodipine, metoprolol succinate which are home meds Monitor BP (3) S/P AAA repair: Ensure BP control (4) CKD (chronic kidney disease), stage III: Cr over the past 5 months have ranged from 1.5-1.8 Cr is 1.89 today Monitor Cr Avoid nephrotoxins (5) Prediabetes: Last HBA1c was 6 Will recheck (6) DVT prophylaxis: SCD and ambulate for now Will hold pharmacological ppx due to history of AAA repair with endoleak Subjective 68year old M with HTN, endoleak post endovascular aortic aneurysmal repair, GERD, CKD3, LAMIN on CPAP, Hypertriglyceridemia, trigeminal neuralgia who presented with jaw pain radiating to chest that woke patient from sleep with chest pressure, worsened with exertion and deep breath, associated with nausea, improved with nitro. His troponin had been negative x3. EKG on admission showed sinus rhythm with 1st degree AVB (TN of 210), left axis deviation. No ST -T changes. Repeat EKG noted 1mm OREN in I and avL. He was evaluated by salon shampoo assistant, Dr Jordan; got Echo which was unremarkable for any significant pathology. Patient had an urgent cardiac cath which showed mild to moderate nonobstructive CAD, aneurysm proximal to midRCA with 30-40% mid segment stenosis. Currently patient reports chest pressure is still present,retrosternal, mild, not referred, worse with deep breathing, nausea resolved.. No cough, no Shortness of breath at rest. He denied any rhinorrhea, sore throat, fevers, chills, sick contacts Review of Systems Review of Systems: All systems reviewed and unremarkable except for mentioned above. Physical Exam Constitutional: well developed and well nourished; no acute distress Eyes: PERRL, conjunctivae normal, anicteric sclerae ENMT: external ear and nose normal, oropharynx normal Respiratory: normal respiratory effort, lungs clear to auscultation Cardiovascular: RRR, no murmur, no edema Heart Sounds: normal S1 and normal S2 Gastrointestinal (Abdomen): normal bowel sounds, soft, nontender, no hepatosplenomegaly Musculoskeletal: no cyanosis or clubbing, extremities motor strength 5/5 Neurologic: PERRL, EOMI, accommodation nl, no face palsy, no dysarthria Psychiatric: A+Ox3, euthymic affect Results & Data Vital Signs (Past 12 Hours) Vital Signs Temp Pulse Pulse Resp BP BP Pulse Ox 01/26/19 10:20 36.8 C 72 16 141/83 H 95 01/26/19 08:00 68 01/26/19 07:59 36.9 C 73 18 144/87 H 96 01/26/19 07:05 78 18 138/89 97 01/26/19 06:57 37.0 C 77 18 173/91 H 95 01/26/19 04:10 95 H 12 132/95 94 01/26/19 04:05 90 12 125/106 H 92 01/26/19 04:00 90 12 168/105 H 95 01/26/19 03:21 37 C 79 18 180/111 H 97 Laboratory Results Short CBC 01/26/19 Range/Units 03:45 WBC 11.78 H (4.8-10.8) K/uL Hgb 14.4 (14.0-18.0) g/dL Hct 40.1 L (42-52) % Plt Count 195 (130-400) K/uL BMP 01/26/19 03:45 Sodium 138 Potassium 3.1 L Chloride 102 Carbon Dioxide 30 BUN 33 H Creatinine 1.89 H Glucose 145 H Calcium 9.8 Cardiac Enzymes 01/26/19 01/26/19 01/26/19 Range/Units 03:45 07:43 10:46 Troponin I < 0.015 0.019 < 0.015 (0-0.045) ng/ml Liver Function 01/26/19 Range/Units 03:45 Total Bilirubin 0.5 (0.2-1) mg/dl Direct Bilirubin 0.1 (0-0.2) mg/dl AST 20 (15-37) U/L ALT 34 (12-78) U/L Alkaline Phosphatase 76 (45-117) U/L Albumin 4.2 (3.4-5.0) gm/dl Diagnostic Findings Cardiac Catheterization Findings: LM -large caliber vessel without significant disease LAD -aneurysmal proximally, 20% mid segment after takeoff of large first caliber diagonal, tapers prior to apex. Large first and second diagonal without significant disease. Circumflex -moderate caliber, tortuous, no significant disease. High OM1, moderate caliber vessel without significant disease. RCA -very large caliber vessel, aneurysmal in the proximal to mid segment, max diameter greater than 10 mm. 40% mid segment stenosis after aneurysm. Distal luminal irregularities. Large PDA, terminal PLB without significant disease. LVEDP -3 Arterial Closure: TR band Summary: 1. Mild to moderate nonobstructive coronary artery disease -Aneurysmal proximal to mid RCA with 30 to 40% mid segment stenosis 2. Normal intracardiac filling pressure 2D Echo EF 60-65 Severe concentric LVH No pericardial effusion (1) HTN (hypertension) Hypertension type: essential hypertension Qualified Code(s): I10 - Essential (primary) hypertension
--- NOTE | 2019-01-26 15:31 | Nuclear Medicine Report ---
NM pul vent and perfuse CLINICAL HISTORY: 68 years-old Male with CP, positive D-dimer. Acute chest pain with elevated d-dime r and renal insufficiency. COMPARISON STUDY: Chest radiograph 01/26/2019. TECHNIQUE: Initially, ventilation images of both lungs are obtained following the inhalation of 32.9 mCi of aerosolized technetium 99m DTPA. Subsequently, perfusion images of both lungs were obtained fo llowing the IV administration of 5.5 mCi of technetium 99m MAA. Ventilation and perfusion images were acquired in the anterior, posterior, and oblique projections. FINDINGS: A chest x-ray performed on 01/26/2019 demonstrated no acute process. Ventilation images demonstrate clumping of tracer within the trachea and perihilar distributions whic h limits the study. Matched ventilation/perfusion defects of the apical posterior segment left upper lobe. No large mismatched defects identified. IMPRESSION:Low probability for pulmonary embolus. The above report was generated using voice recognition software. It may contain grammatical, syntax o r spelling errors. Electronically signed by: Paul Newman M.D. 01/26/2019 3:30 PM
[2019-01-26] MEDS: HYDROCODONE/ACETAMOPHEN 5/325MG TAB PO PRN (15:37)
[2019-01-26] MEDS ORDERED: INFLUENZA VACCINE HIGH DOSE 65+ 0.5 ML SYR IM ONE (16:30)
[2019-01-26] MEDS ORDERED: INFLUENZA ADMINISTRATION CHARGE ONE (16:30)
--- NOTE | 2019-01-26 17:45 | Ultrasound Report ---
US aorta duplex CLINICAL HISTORY: 68 years-old Male with s/p AAA repair, chest pain. Study in a patient with acute c hest pain and history of abdominal aortic aneurysm with repair COMPARISON: CT pelvis 01/31/2013 TECHNIQUE: Multiple real time sonographic images of the abdominal aorta were obtained assessing palomares- scale appearance as well as color. Doppler and spectral waveform analysis. FINDINGS: MEASUREMENTS: Proximal Aorta: 2.4 cm Mid Aorta: Negative aorta measures up to 5.4 cm. Patent stent graft is noted with diameter of 2.9 cm. Distal Aorta: Negative aorta measures 5.3 cm. Patent stent graft is noted with diameter of 3.0 cm. Right Common Iliac Artery: 1.3 cm Left Common Iliac Artery: 1.1 cm Pulsatile color Doppler flow and a normal spectral waveform are seen within the proximal aorta. Paten t iliac grafts. No endoleak identified on this exam. Thrombus within the [place] aneurysm may be on a chronic basis. IMPRESSION: Aneurysmal dilation of the abdominal aorta with patent aortobiiliac stent graft. The above report was generated using voice recognition software. It may contain grammatical, syntax o r spelling errors. Electronically signed by: Paul Newman M.D. 01/26/2019 5:43 PM
--- NOTE | 2019-01-26 18:54 | Magnetic Resonance Report ---
MR angio chest wo con HISTORY: 68 years-old Male Chest pain history of abdominal aneurysm repair acute chest pain with tram or abdominal aortic aneurysm repair. COMPARISON: Ultrasound of the abdominal aorta of same day TECHNIQUE: MRA of the chest was obtained without the use of IV contrast. All measurements were obtain ed according to NASCET criteria. FINDINGS: Degenerative changes of the bilateral shoulders. T2 hyperintense foci of the kidneys suggest probable cysts. 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 Mild gallbladder distention with equivocal cholelithiasis. There are rosy ral subcentimeter T2 hyperintense circumscribed lesions about the liver measuring up to 1.0 cm sugges tive of probable cysts. Heart is upper limits of normal in size. The lung conteh appear clear. Bony s tructures appear unremarkable. Artifact from abdominal aortic aneurysm endograft. Mild fusiform dilat ion of the ascending thoracic aorta, 4.2 x 4.2 cm. No dissection or mediastinal hematoma identified. Visualized pulmonary arteries unremarkable. Descending thoracic aorta appears unremarkable and is mil dly tortuous. The distal portion of the descending thoracic aorta is obscured secondary to the aforem entioned artifact. No intramural hematoma identified. IMPRESSION: 1. Fusiform dilation of the ascending thoracic aorta, 4.2 x 4.2 cm. 2. Artifact from abdominal aortic aneurysm endograft limits the study. 3. No dissection identified. 4. Additional findings as above. The above report was generated using voice recognition software. It may contain grammatical, syntax o r spelling errors. Electronically signed by: Paul Newman M.D. 01/26/2019 6:53 PM
[2019-01-26] MEDS: methylPREDNISolone 60 MG in SYRINGE 0 ML IV SCH (20:28)
[2019-01-26] MEDS: COLCHICINE 0.6 MG TAB PO SCH (20:31)
[2019-01-26] MEDS: MAGNESIUM OXIDE 400 MG TAB PO SCH (20:33)
[2019-01-27] MEDS: TRICOR~ORDER AWAITING ACTION SCH ×2 (01:05→09:46)
[2019-01-27 05:48] LABS: Basophils # (auto) 0.01 K/uL (0-0.2); Basophils % (auto) 0.1 %; Eosinophils # (auto) 0.01 K/uL (0-0.5); Eosinophils % (auto) 0.1 %; Hematocrit (blood only) 38.7 % (42-52); Hemoglobin 13.1 g/dL (14.0-18.0); Immature Granulocytes # (auto) 0.04 K/uL (0.00-0.02); Immature Granulocytes % (auto) 0.5 %; Lymphocytes % (auto) 19.6 %; Mean Corpuscular Hemoglobin 30.2 pg (25-34); Mean Corpuscular Hgb Conc 33.9 g/dL (32-36); Mean Corpuscular Volume 89.2 fL (80-100); Mean Platelet Volume 9.3 fL (7.4-10.4); Monocytes # (auto) 0.74 K/uL (0.11-0.59); Monocytes % (auto) 9.1 %; Neutrophils # (auto) 5.77 K/uL (1.4-6.5); Neutrophils % (auto) 70.6 %; Platelet Count 186 K/uL (130-400); RDW Coefficient of Variation 13.7 % (11.5-14.5); RDW Standard Deviation 44.9 fL (36.4-46.3); Red Blood Count 4.34 M/uL (4.7-6.1); White Blood Count 8.17 K/uL (4.8-10.8)
[2019-01-27 06:14] LABS: Calcium 9.6 mg/dl (8.5-10.1); Creatinine Clr Calc Pharmacy 37.5 ml/min; Est GFR (African American) 39.1; Est GFR (Non-African American) 33.8; Magnesium 2.4 mg/dl (1.8-2.4); Potassium 3.5 mmol/L (3.5-5.1)
[2019-01-27] MEDS: ASCORBIC ACID 500 MG TAB PO SCH ×2 (07:56→21:06)
[2019-01-27] MEDS: SPIRONOLACTONE 25 MG TAB PO SCH (07:56)
[2019-01-27] MEDS: CARBAMAZEPINE 200 MG TABCR PO SCH ×2 (07:57→21:06)
[2019-01-27] MEDS: FELODIPINE 5 MG TABCR PO SCH (07:57)
[2019-01-27] MEDS: COLCHICINE 0.6 MG TAB PO SCH ×2 (07:57→21:03)
[2019-01-27] MEDS: ALLOPURINOL 100 MG TAB PO SCH (07:57)
[2019-01-27] MEDS: ASPIRIN 325 MG ECTAB PO SCH (07:57)
[2019-01-27] MEDS: cloNIDine HCl 0.1 MG TAB PO SCH ×2 (07:57→21:12)
[2019-01-27] MEDS: ROSUVASTATIN CALCIUM 20 MG TAB PO SCH (07:57)
[2019-01-27] MEDS: INDAPAMIDE 1.25 MG TAB PO SCH ×2 (07:57→21:04)
[2019-01-27] MEDS: MINOXIDIL 2.5 MG TAB PO SCH (07:57)
[2019-01-27] MEDS: EZETIMIBE 10 MG TABLET PO SCH (07:58)
[2019-01-27] MEDS: CHOLECALCIFEROL 1,000 UNITS TAB PO SCH (07:58)
[2019-01-27] MEDS: METOPROLOL SUCC 25MG EXT REL TAB PO SCH (07:58)
[2019-01-27] MEDS: IRBESARTAN 150 MG TAB PO SCH ×2 (07:58→20:58)
[2019-01-27] MEDS: methylPREDNISolone 60 MG in SYRINGE 0 ML IV SCH ×2 (07:59→21:05)
[2019-01-27] MEDS: POTASSIUM CHLORIDE 10 MEQ TABCR PO SCH ×2 (08:00→21:03)
[2019-01-27] MEDS ORDERED: SODIUM CHLORIDE 0.9% 500 ML IV SCH (10:00)
--- NOTE | 2019-01-27 10:08 | Cardiology Progress Note ---
Date of Service January 27, 2019 Assessment & Plan (1) Pericarditis: (2) MIGUEL (acute kidney injury): (3) Chest pain: (4) HTN (hypertension): (5) S/P AAA repair: ST elevation noted on ECG 01/26/2019 has resolved per repeat study today. Patient currently chest pain-free. Requesting discharge if possible. Creatinine mildly elevated, however this is likely too early for contrast- induced nephropathy. Recommend intravenous hydration, normal saline at 125 cc/h. Transition methylprednisolone to prednisone 40 mg daily. Will taper prednisone over the next 10 days. Continue colchicine as tolerated with plans to continue for a total of 3 months. All questions answered patient satisfact ion. Subjective Patient seen and examined at the bedside. Denies chest pain or unusual shortness of breath. Previously reported pleuritic discomfort with deep inspiration has resolved. Feeling well today. Requesting discharge if possible. Creatinine trending upward mildly today. Blood pressure controlled. Tolerating current medications. Offers no complaints at this time. Review of Systems Review of Systems: All systems reviewed & are unremarkable except as noted in HPI & below Physical Exam Physical Exam: General: NAD, AAO x3, well nourished. HEENT: Normocephalic. Atraumatic. Conjunctiva pink, no scleral icterus. Neck: No carotid bruits, the carotid upstrokes are brisk. No JVD. No HJR Heart: Regular normal S-1 and S-2 no S-3 or S-4 gallop. No murmurs or rub appreciated. PMI is not displaced. No RV heave. Lungs: Clear bilateral without rales , rhonchi, or wheeze. Abdomen: Normal bowel sounds. Soft. Nontender. No masses or organomegaly. No abdominal bruits. Extremities: No clubbing, cyanosis, or edema. Pulses: radial=2/4, Dorsalis pedis =2/4, posterior tibial=2/4. Neuro: Cranial nerves grossly intact. No focal motor deficit. Results & Data Vital Signs (Past 12 Hours) Vital Signs Temp Pulse Pulse Resp BP Pulse Ox 01/27/19 07:04 36.5 C 72 19 147/91 H 95 01/27/19 04:00 36.5 C 73 18 121/76 93 01/27/19 03:15 76 16 92 01/26/19 23:40 36.6 C 63 20 123/80 97 (1) Pericarditis Chronicity: acute Pericarditis type: idiopathic Qualified Code(s): I30.0 - Acute nonspecific idiopathic pericarditis (2) HTN (hypertension) Hypertension type: essential hypertension Qualified Code(s): I10 - Essential (primary) hypertension
[2019-01-27] MEDS ORDERED: predniSONE 20 MG TAB PO ONE (10:15)
--- NOTE | 2019-01-27 12:40 | Hospitalist Progress Note ---
Date of Service January 27, 2019 Assessment & Plan (1) Chest pain: Troponin was negative x3 Cardiac cath does not show CAD as cause of chest pain VQ scan was low probability Patient had cardiac MRA and aortic USS with results noted CRP was 0.68 Chest pain likely due to pericarditis EKG changes noted yesterday has resolved Currently on colchicine and steroid Discussed with Pmo Analyst (2) HTN (hypertension): Currently stable Continue irbesartan, clonidine, felodipine, metoprolol succinate which are home meds Monitor BP (3) S/P AAA repair: Ensure BP control (4) CKD (chronic kidney disease), stage III: Cr over the past 5 months have ranged from 1.5-1.8 Cr is 2.0 today from 1.89 yesterday Cr is increased today likely due to contrast exposure with cardiac cath Will continue IVF today Monitor Cr in AM Avoid nephrotoxins (5) Prediabetes: Last HBA1c was 6 A1c pending (6) DVT prophylaxis: SCD and ambulate Will hold pharmacological ppx due to history of AAA repair with endoleak Subjective Patient has no complaints today. Chest pain has completely resolved. No jaw pain or shortness of breath Review of Systems Review of Systems: All systems reviewed and unremarkable except for mentioned above. Physical Exam Constitutional: WD/WN, vitals as above Eyes: PERRL, conjunctivae normal, anicteric sclerae ENMT: external ear and nose normal, oropharynx normal Neck: normal visual inspection Respiratory: normal respiratory effort, lungs clear to auscultation Cardiovascular: RRR, no murmur, no edema Heart Sounds: normal S1 and normal S2 Gastrointestinal (Abdomen): normal bowel sounds, soft, nontender, no hepatosplenomegaly Musculoskeletal: no cyanosis or clubbing, extremities motor strength 5/5 Neurologic: PERRL, EOMI, accommodation nl, no face palsy, no dysarthria Psychiatric: A+Ox3, euthymic affect Results & Data Vital Signs (Past 12 Hours) Vital Signs Temp Pulse Pulse Resp BP Pulse Ox 01/27/19 10:55 36.4 C L 70 19 157/91 H 96 01/27/19 08:00 78 01/27/19 07:04 36.5 C 72 19 147/91 H 95 01/27/19 04:00 36.5 C 73 18 121/76 93 01/27/19 03:15 76 16 92 Laboratory Results Short CBC 01/27/19 Range/Units 05:13 WBC 8.17 (4.8-10.8) K/uL Hgb 13.1 L (14.0-18.0) g/dL Hct 38.7 L (42-52) % Plt Count 186 (130-400) K/uL BMP 01/27/19 05:13 Sodium 141 Potassium 3.5 Chloride 107 Carbon Dioxide 25 BUN 36 H Creatinine 2.00 H Glucose 134 H Calcium 9.6 Cardiac Enzymes 01/26/19 Range/Units 19:02 Troponin I < 0.015 (0-0.045) ng/ml Diagnostic Findings CArdia MRA 1. Fusiform dilation of the ascending thoracic aorta, 4.2 x 4.2 cm. 2. Artifact from abdominal aortic aneurysm endograft limits the study. 3. No dissection identified. 4. Additional findings as above. Aortic USS Aneurysmal dilation of the abdominal aorta with patent aortobiiliac stent graft. (1) HTN (hypertension) Hypertension type: essential hypertension Qualified Code(s): I10 - Essential (primary) hypertension
[2019-01-27] MEDS: MAGNESIUM OXIDE 400 MG TAB PO SCH (21:05)
[2019-01-27] MEDS: HYDROCODONE/ACETAMOPHEN 5/325MG TAB PO PRN (22:20)
[2019-01-27] MEDS ORDERED: ZOLPIDEM TARTRATE 5 MG TAB PO PRN ×2 (22:21→22:29)
[2019-01-28 06:08] LABS: Estimated Average Glucose 140 mg/dl; Hemoglobin A1C 6.5 % (4.5-5.6)
[2019-01-28] MEDS: POTASSIUM CHLORIDE 10 MEQ TABCR PO SCH (08:47)
[2019-01-28] MEDS: METOPROLOL SUCC 25MG EXT REL TAB PO SCH (08:47)
[2019-01-28] MEDS: ROSUVASTATIN CALCIUM 20 MG TAB PO SCH (08:47)
[2019-01-28] MEDS: COLCHICINE 0.6 MG TAB PO SCH (08:47)
[2019-01-28] MEDS: CHOLECALCIFEROL 1,000 UNITS TAB PO SCH (08:48)
[2019-01-28] MEDS: ALLOPURINOL 100 MG TAB PO SCH (08:48)
[2019-01-28] MEDS: FELODIPINE 5 MG TABCR PO SCH (08:49)
[2019-01-28] MEDS: ASCORBIC ACID 500 MG TAB PO SCH (08:49)
[2019-01-28] MEDS: CARBAMAZEPINE 200 MG TABCR PO SCH (08:49)
[2019-01-28] MEDS: EZETIMIBE 10 MG TABLET PO SCH (08:49)
[2019-01-28] MEDS: MINOXIDIL 2.5 MG TAB PO SCH (08:50)
[2019-01-28] MEDS: ASPIRIN 325 MG ECTAB PO SCH (08:50)
[2019-01-28] MEDS: SPIRONOLACTONE 25 MG TAB PO SCH (08:50)
[2019-01-28] MEDS: methylPREDNISolone 60 MG in SYRINGE 0 ML IV SCH (08:51)
[2019-01-28] MEDS: INDAPAMIDE 1.25 MG TAB PO SCH (08:51)
[2019-01-28] MEDS: cloNIDine HCl 0.1 MG TAB PO SCH (08:52)
[2019-01-28] MEDS: IRBESARTAN 150 MG TAB PO SCH (08:52)
[2019-01-28 09:28] LABS: BUN Creatinine Ratio 19.7 (10-20); Calcium 10.2 mg/dl (8.5-10.1); Creatinine Clr Calc Pharmacy 38.1 ml/min; Est GFR (African American) 39.9; Est GFR (Non-African American) 34.4; Potassium 3.5 mmol/L (3.5-5.1)
--- NOTE | 2019-01-28 10:47 | Cardiology Progress Note ---
Date of Service January 28, 2019 Assessment & Plan (1) Pericarditis: (2) MIGUEL (acute kidney injury): (3) Chest pain: (4) HTN (hypertension): (5) S/P AAA repair: Discontinue IV Solu-Medrol. Recommend steroid taper with prednisone over the next 10 days. Begin with 40 mg daily. Reduce colchicine to 0.6 mg daily and continue for 3 months as tolerated. Encouraged to improve hydration over the next few days. Repeat basic metabolic panel in 1 week. Advised to avoid strenuous activity for 1 week. Close outpatient cardiology follow-up in 1 to 2 weeks. Subjective Patient seen and examined at the bedside. Chest pain-free overnight. C reatinine trending downward, however, remains above baseline. Requesting discharge if possible. Offers no complaints at this time. Review of Systems Review of Systems: All systems reviewed & are unremarkable except as noted in HPI & below Physical Exam Physical Exam: General: NAD, AAO x3, well nourished. HEENT: Normocephalic. Atraumatic. Conjunctiva pink, no scleral icterus. Neck: No carotid bruits, the carotid upstrokes are brisk. No JVD. No HJR Heart: Regular normal S-1 and S-2 no S-3 or S-4 gallop. No murmurs or rub appreciated. PMI is not displaced. No RV heave. Lungs: Clear bilateral without rales , rhonchi, or wheeze. Abdomen: Normal bowel sounds. Soft. Nontender. No masses or organomegaly. No abdominal bruits. Extremities: No clubbing, cyanosis, or edema. Pulses: radial=2/4, Dorsalis pedis =2/4, posterior tibial=2/4. Neuro: Cranial nerves grossly intact. No focal motor deficit. Results & Data Vital Signs (Past 12 Hours) Vital Signs Temp Pulse Pulse Resp BP Pulse Ox 01/28/19 07:45 36.7 C 65 18 146/91 H 95 01/28/19 04:09 36.4 C L 74 18 137/85 96 01/28/19 03:06 71 17 97 01/27/19 23:58 36.4 C L 55 L 18 134/86 98 01/27/19 23:39 74 16 97 (1) Pericarditis Pericarditis type: idiopathic Chronicity: acute Qualified Code(s): I30.0 - Acute nonspecific idiopathic pericarditis (2) HTN (hypertension) Hypertension type: essential hypertension Qualified Code(s): I10 - Essential (primary) hypertension
--- NOTE | 2019-01-28 14:19 | Discharge Summary ---
Date of Service January 28, 2019 Admission HPI Per Admitting Provider 68-year-old male with past medical history significant for hypertension, hypertriglyceridemia, hyperlipidemia, prediabetes, obstructive sleep apnea, CPAP, chronic kidney disease stage III, chronic ischemic heart disease, history of endoleak post-endovascular aneurysm repair, GERD, trigeminal neuralgia, who presents with chest pain. The patient woke up in the night with jaw pain in both the jaws, moderate in severity, and the pain is radiating to the chest, pressure like feeling. When he ambulated, the pain got worse. No nausea, no dizziness, no shortness of breath and because of pain he came to the ER, given nitroglycerin, the pain is almost relieved, it is only 1/10 to 2/10 in severity. Has some headache from the nitro. Currently resting comfortable and hemodynamically stable. He says the blood pressure runs okay at home. Denies any dizziness, no blurred vision, no earache, no runny nose, no sore throat, no difficulty swallowing. Appetite is okay. Sleeps okay. Ambulates fine. No chest pain, no shortness of breath on climbing steps. No nausea, no vomiting, no abdominal pain. Normal bowel and bladder movements. No hematuria, no hematochezia, no melena, no burning micturition, no swelling in the legs, no rash. No recent weight gain or weight loss. Admission Exam Per Admitting Provider GENERAL: The patient is of moderate build, not in acute distress. VITAL SIGNS: Temperature 37, pulse 95, respiratory rate 12, blood pressure 132/95, oxygen 94% on room air. HEENT: No pallor, no icterus. Pupils equal, round, and reactive to light. Extraocular muscles intact. NECK: No JVD, no neck masses, no carotid bruit. CARDIOVASCULAR: S1, S2 heard, regular rate and rhythm, no murmur, no gallop. RESPIRATORY SYSTEM: Normal AP diameter. No accessory muscle use. No wheezing, no crackles. ABDOMEN: Soft, bowel sounds present, nontender. No distention. CENTRAL NERVOUS SYSTEM: Alert and awake and oriented. Obeys commands. Moves extremities. EXTREMITIES: No edema, no erythema. Principal Diagnosis Chest Pain Acute Pericarditis CKD 3 Hypertension History of aortic aneurysm s/p repair Discharge Exam Constitutional well developed and well nourished; no acute distress Eyes PERRL, conjunctivae normal, anicteric sclerae ENMT external ear and nose normal, oropharynx normal Neck trachea midline, no thyromegaly Respiratory normal respiratory effort, lungs clear to auscultation Cardiovascular RRR, no murmur, no edema Heart Sounds: normal S1 and normal S2 Vessels: no JVD Extremities: no edema Gastrointestinal (Abdomen) normal bowel sounds, soft, nontender, no hepatosplenomegaly Musculoskeletal no cyanosis or clubbing, extremities motor strength 5/5 Neurologic PERRL, EOMI, accommodation nl, no face palsy, no dysarthria Psychiatric A+Ox3, euthymic affect Discharge Data Allergies Allergy/AdvReac Type Severity Reaction Status Date / Time No Known Allergies Allergy Unknown Verified 01/26/19 05:00 Consultations 01/26/19 04:58 ED Decision to Admit Stat 01/26/19 08:00 Consult Cardiology Routine Procedures Performed Operation Date: 01/26/19 11:03 Actual Procedures p Cath, Left with Cors and Vent - Gama Yap MD 1. Mild to moderate nonobstructive coronary artery disease -Aneurysmal proximal to mid RCA with 30 to 40% mid segment stenosis 2. Normal intracardiac filling pressure s Cineradiography w/Routine Exam - Gama Yap MD Ordered Studies 01/26/19 11:02 CL Cath Imgs for PACS use only Stat 01/26/19 15:13 US aorta duplex Urgent Aneurysmal dilation of the abdominal aorta with patent aortobiiliac stent graft. 01/26/19 17:20 MR angio chest wo con Stat 1. Fusiform dilation of the ascending thoracic aorta, 4.2 x 4.2 cm. 2. Artifact from abdominal aortic aneurysm endograft limits the study. 3. No dissection identified Hospital Course (1) Acute pericarditis: (2) Chest pain: Troponin was negative x3 EKG showed 1mm ST elevations in lead I and aVL Cardiac cath does not show CAD as cause of chest pain VQ scan was low probability Patient had cardiac MRA and aortic USS with results noted above CRP was 0.68 Was treated with colchicine and iv steroid Will change to po prednisone 40mg taper for next 10 days Will need to continue colchicine 0.6mg for 3 months. Educated him on possible interactions Needs follow up with his ham stripper within the next 1-2 weeks (3) HTN (hypertension): Remained stable Continue irbesartan, clonidine, felodipine, metoprolol succinate which are home meds Continue outpatient management with ham stripper (4) S/P AAA repair: Ensure BP control (5) CKD (chronic kidney disease), stage III: MIGUEL on CKD 3 Cr over the past 5 months have ranged from 1.5-1.8 Cr is 2.0 today from 1.89 on admission.Increased creatinine likely due to contrast exposure during cardiac cath Received IVF. Today, Cr is 1.97 Repeat BMP in 1 week Avoid nephrotoxins (6) Prediabetes: HbA1c 6.5 Total Time Total Time Spent Total Time Spent (In Minutes): 35 Total Time Includes: Examination of the Patient, Discharge Planning and Medication Reconciliation Discharge Plan Discharge Items Patient Disposition: Home - Self-Care Reason For Visit: CHEST PAIN Discharge Diagnosis: Chest pain Acute pericarditis Acute on Chronic kidney injury Condition on Discharge: Good Activity: As commented below Activity Comment: Avoid strenous activity for 1 week as discussed Non-emergency contact: Primary Care Provider and Electromechanical Equipment Tester Call non-emergency contact if: you have any medication questions and your symptoms worsen Follow-up/Referrals: Domingo Zhang MD [Primary Care Provider] - Diet: Heart Healthy Ambulatory Orders: Basic Metabolic Panel (Routine) Timeframe: [id number] Location: Determined by Patient Ordered By: Valeria Palmer Attending Provider Instructions: Mr Orozco. You came to the hospital for jaw pain and chest pain. Evaluation showed abnormalities on your Electrocardiogram (EKG) which shows electrical activities of the heart. You were thoroughly evaluated by the Electromechanical Equipment Tester. You had a cardiac catheterization which did not show blockages that will explain the pain and abnormalities. Due to your significant history of aortic aneurysms and repair, you had aortic ultrasound and MRA scans which did not show any new abnormality. You were started on steroid and colchicine and your chest pain and jaw pain completely resolved. Your creatinine which is used to monitor kidney function worsened. You have a baseline chronic kidney disease. The worsening of your creatinine is likely due to exposure to contrast used in cardiac catheterization. You received IV fluids and it started to improve. It is important you stay hydrated. Please recheck your BMP (Basic Metabolic panel) in 1 week to monitor. For your Pericarditis, you are being discharged on colchicine and prednisone Please take the colchine 0.6mg daily for 3 months. Please take the prednisone 40mg daily for 3 days, then 20mg daily for 3 days then 10mg daily for 4 days. It is very important that you follow up with your Electromechanical Equipment Tester within 1-2 weeks. Please follow up with your Primary Doctor within 1 week. It was a pleasure taking care of you Pending Studies at Discharge: No Stand-Alone Forms: [facility], Smoking Cessation Medications and DC Order Prescriptions: New colchicine [Colcrys] 0.6 mg Tablet 0.6 mg PO DAILY 30 Days Qty: 30 RF: 0 prednisone 10 mg tablet See Rx Instructions .ROUTE .COMPLEX Qty: 22 RF: 0 Continued ascorbic acid (vitamin C) 1,000 mg Tablet 1 g PO BID RF: 0 allopurinol 100 mg tablet 100 mg PO QAM RF: 0 clonidine HCl 0.1 mg tablet 0.1 mg PO AMHS RF: 0 felodipine 5 mg tablet extended release 24 hr 5 mg PO DAILY RF: 0 fenofibrate micronized 200 mg capsule 200 mg PO DAILY RF: 0 ezetimibe 10 mg tablet 10 mg PO QAM RF: 0 aspirin 325 mg Tablet 325 mg PO DAILY RF: 0 indapamide 2.5 mg tablet 2.5 mg PO BID RF: 0 metoprolol succinate 50 mg tablet extended release 24 hr 25 mg PO DAILY RF: 0 minoxidil 10 mg tablet 10 mg PO DAILY RF: 0 irbesartan 150 mg tablet 150 mg PO BID RF: 0 spironolactone 25 mg tablet 25 mg PO DAILY RF: 0 rosuvastatin 40 mg tablet 40 mg PO DAILY RF: 0 potassium chloride 10 mEq tablet,ER particles/crystals 10 meq PO BID RF: 0 hydrocodone-acetaminophen 5-325 mg tablet 1 tab PO Q8 PRN (Reason: Pain) RF: 0 metronidazole 1 % gel 1 applic topical DAILY RF: 0 magnesium oxide 400 mg magnesium Tablet 400 mg PO QPM RF: 0 Glucosamine Chondroitin 550-30-1 mg Capsule 1 cap PO BID RF: 0 carbamazepine 200 mg Tablet Extended Release 12 Hr 200 mg PO BID RF: 0 cholecalciferol (vitamin D3) [Vitamin D3] 2,000 unit Tablet 2,000 unit PO DAILY RF: 0 omega 7-thy-bfc-fish oil [Fish Oil] 1,000 mg (120 mg-180 mg) Capsule 2 cap PO BID RF: 0 Discharge Orders: Discharge Order (Routine); Ordered 01/28/19 Ordered By: Valeria Ballesteros Admission Data Admit Date/Time: 01/27/19 15:27 Attending Provider: Valeria Ballesteros I. Admit Provider: Tashi Trejo Primary Care Provider: Domingo Zhang Other Providers: Tashi Trejo ; Dax Cook ; Rico Tamez ; Juan Rivas ; Viktor Jordan ; Fede Cruz ; Domingo Castro ; Fe Boyer ; Rachel Little
[2019-01-29] MEDS ORDERED: COLCHICINE 0.6 MG TAB PO SCH (09:00)
== END 2019-01-28 15:03 | disposition home or self-care (01) | DRG 287 ==
LOC: ED 03:07 → 2S 03:07

== ENCOUNTER 2021-07-09 10:13 | Observation (INO) ==
--- NOTE | 2021-07-01 11:56 | Communication Note ---
Date of Service: July 01, 2021 Patient contacted office with new medications: omeprazole and venlafaxine both taken in the morning. He was advised to continue both morning of surgery and these were added to his chart.
--- NOTE | 2021-07-03 10:21 | History and Physical Report ---
CHIEF COMPLAINT: Right knee pain and discomfort. HISTORY OF PRESENT ILLNESS: The patient is a 71-year-old male and previous head men's golf coach at [employer], who presents for surgical treatment of his right knee. He has got a long history of knee proble ms and had his right knee scoped by Dr. Victoria in 2007. He has been followed at [facility] and had multipl e steroid shots and gel injections, which have become less successful over time. He has got global p ain. The more he is up on it, the more it hurts. He limps more as the day goes on. It swells up. He has nighttime discomfort. He has exhausted conservative care and would like to have his right kne e replaced. Minimal relief from NSAIDs. PAST MEDICAL HISTORY: Significant for, 1. AAA repair done at [facility] 15 years ago. 2. Hypertension. 3. Elevated cholesterol. 4. Sleep apnea with a CPAP machine. 5. Kidney stones. PAST SURGICAL HISTORY: Previous surgeries include a AAA repair done at [facility] 15 years ago. ALLERGIES: None. CURRENT MEDICATIONS: Include, 1. Allopurinol. 2. Vitamin C. 3. Aspirin. 4. Carbamazepine. 5. Vitamin D3. 6. Clonidine. 7. Felodipine. 8. Ezetimibe. 9. Fenofibrate. 10. Hydrocodone. 11. Indapamide. 12. Irbesartan. 13. Magnesium. 14. Metoprolol 15. Minoxidil. 16. Potassium chloride. 17. Prednisone. 18. Rosuvastatin. 19. Spironolactone. SOCIAL HISTORY: A 71-year-old male. He is . His used to work at the hospital, but now retired. 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 FAMILY HISTORY: Noncontributory. REVIEW OF SYSTEMS: Negative for any chest pain or shortness of breath. He does have this history of AAA repair, but no problems since surgery. No known bleeding problems. No DVTs or PEs. PHYSICAL EXAMINATION: GENERAL: Shows a pleasant, healthy appearing, middle-aged male. He looks to be in pretty good healt h. HEENT: Benign. NECK: Supple. No lymphadenopathy. LUNGS: Clear to auscultation. HEART: Has a regular rate and rhythm. ABDOMEN: Soft, nontender, nondistended. EXTREMITIES: Grossly neurovascularly intact except as follows: Examination of the right knee reveal s the patient ambulates independently. He does limp on this right side. With weightbearing, he has got a varus thrust. He has got bony hypertrophy medially. Small knee effusion. Range of motion abo ut 5 degrees short of full extension and 20 degrees of flexion. There is no pain with hip motion. X-RAYS: X-rays of the right knee reviewed. It shows advanced right knee degenerative joint disease. He has got complete loss of his medial joint space. He has got subchondral sclerosis. He has got some mild destruction of the medial tibial plateau. ASSESSMENT: A 71-year-old male with advanced right knee degenerative joint disease. History of knee arthroscopy in the past. He failed conservative treatment and would like to have his knee replaced. PLAN: We are going to proceed with a right total knee replacement. The risks and benefits of this p rocedure were explained to the patient and include, but not limited to, DVT, PE, , infection, ne urological injury, vascular injury, bleeding problem, pain, limited range of motion, stiffness, failu re to relieve his symptoms, incomplete relief of symptoms, need for further surgery in the future, et c. The patient understands and desires to proceed. Informed consent was obtained. We did talk to him about taking his metoprolol the morning of surgery. He is planning to be discharg ed to home using [facility] program. Job ID: [id number]
--- NOTE | 2021-07-06 13:36 | Anesthesiology Consultation ---
Date of Service July 06, 2021 Assessment & Plan (1) Encounter for pre-operative examination: - COVID screening: Per assessment on 07/06: No known COVID-19 positive contacts or current COVID-19 related symptoms. Travel screen negative. Patient vaccinate d. Surgeon arranging preop COVID testing. Awaiting results. - Vascular office visit (03/17/21): Vascular aware of upcoming TKA per 02/2021 Elenita Onink, PAC notes > "Status post aorto bi-iliac endograft repair of a fusiform infrarenal aortic aneurysm with subsequent trans lumbar sac embolization. Examination is limited in the absence of intravenous contrast and in the presence of streak artifact from embolization material. Within this limitation, no significant change in the [place] aneurysm sac is identified. No evidence of endograft migration.. The patient was counseled regarding the pathophysiology and natural h/o abdominal aortic aneurysm, as well as the signs of rupture and the need to initiate emergency medical attention in that situati on. Aneurysmal sac is relatively stable compared to prior imaging with no evidence of endoleak. Continue daily aspirin. Continue statin therapy. F/U 1 year with aortic duplex and noncontrast CT abd/pelvis (CKD) with IMAR due to coils, or sooner prn. (He has a Zenith stent graft (which contains stainless steel) which is a CONTRAINDICATION for MRI imaging.).. CT and ultrasound of AAA sac is stable.. The CT for the past few years seems quite stable.. He may need more work in the future but for now the aneurysm seems to have stopped growing.. Will see back in one year with repeat imaging - Cardiology note (04/02/21): "No cardiac contraindications to surgery as planned. Blood pressure will need to be followed closely perioperatively and usual medications to be administered throughout surgical course" Chart Review Chart Review: Acceptable Risk for Surgery (pending evaluation AM DOS) and Patient NOT seen in Pre Admission Testing History Surgery Operation Date: 07/09/21 13:10 Proposed Procedures p Right Total Knee Arthroplasty - Rico Bowen MD Height/Weight Height: 5 ft 10 in Weight: 80.286 kg Allergies Allergy/AdvReac Type Severity Reaction Status Date / Time No Known Allergies Allergy Unknown Verified 07/06/21 11:30 Medications Home Medications Medication Instructions Recorded Confirmed Last Taken allopurinol 100 mg tablet 100 mg PO QAM 01/26/19 07/06/21 01/25/19 ascorbic acid (vitamin C) 1,000 mg 1 g PO BID 01/26/19 07/06/21 01/25/19 tablet aspirin 325 mg tablet 325 mg PO HS 01/26/19 07/06/21 01/25/19 carbamazepine 200 mg 200 mg PO BID 01/26/19 07/06/21 01/25/19 tablet,extended release,12 hr clonidine HCl 0.1 mg tablet 0.1 mg PO AMHS 01/26/19 07/06/21 01/25/19 ezetimibe 10 mg tablet 10 mg PO QAM 01/26/19 07/06/21 01/25/19 felodipine 5 mg tablet,extended 5 mg PO QAM 01/26/19 07/06/21 01/25/19 release 24 hr fenofibrate micronized 200 mg 200 mg PO QPM 01/26/19 07/06/21 01/25/19 capsule glucosamine sulf dipot 1 cap PO BID 01/26/19 07/06/21 01/25/19 chlr,msm,chond 550 mg-C 30 mg-leroy 1 mg capsule (Glucosamine Chondroitin) hydrocodone 5 mg-acetaminophen 325 1 tab PO Q8 PRN 01/26/19 07/06/21 Unknown mg tablet indapamide 2.5 mg tablet 2.5 mg PO BID 01/26/19 07/06/21 01/25/19 irbesartan 150 mg tablet 150 mg PO BID 01/26/19 07/06/21 01/25/19 magnesium oxide 400 mg PO QAM 01/26/19 07/06/21 01/25/19 metoprolol succinate 50 mg 25 mg PO QAM 01/26/19 07/06/21 01/25/19 tablet,extended release 24 hr metronidazole 1 % topical gel 1 applic TOPICAL DAILY 01/26/19 07/06/21 01/25/19 minoxidil 10 mg tablet 5 mg PO BID 01/26/19 07/06/21 01/16/19 omega 4-hzv-ium-fish oil 1,000 mg 2 cap PO BID 01/26/19 07/06/21 01/25/19 (120 mg-180 mg) capsule (Fish Oil) potassium chloride 10 mEq 10 meq PO BID 01/26/19 07/06/21 01/25/19 tablet,extended release(part/cryst) rosuvastatin 40 mg tablet 40 mg PO QPM 01/26/19 07/06/21 01/25/19 spironolactone 25 mg tablet 25 mg PO QAM 01/26/19 07/06/21 01/25/19 doxycycline monohydrate 50 mg 50 mg PO BID 02/24/21 07/06/21 Unknown tablet omeprazole 20 mg PO QAM 07/01/21 07/06/21 Unknown escitalopram oxalate 10 mg tablet 10 mg PO QAM 07/06/21 07/06/21 Unknown Past Medical History Medical History Abdominal aneurysm s/p endovascular repair 2005 with chronic endovascular leak, s/p multiple interventions with tolowa dee-ni' coils (> 60 per pt), follows with vascular surgery annually with [facility] CAD (coronary artery disease) "mild to moderate nonobstructive coronary artery disease", follows with [facility] cardio Cardiac murmur CKD (chronic kidney disease) stage 3, GFR 30-59 ml/min F/U [facility] Dyslipidemia, goal LDL below 70 History of COVID-19 03/2020 [facility]-fatigue, fever, myalgias-recovered at home- symptoms resolved 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 Past Family History Family History Sister Family history of diabetes mellitus Grandfather (Maternal) Family history of diabetes mellitus Past Surgical History Surgical History H/O endovascular stent graft for abdominal aortic aneurysm History of appendectomy History of arthroscopy right knee with meniscus repair, 2007 History of colonoscopy History of esophagogastroduodenoscopy (EGD) History of lumbar surgery 12/15/2016: L5-S1 decompression fusion. Grade 1 view, MAC#3, ETT#8.0. No issues per anesthesia progress note. Hospitalist note and pt report extended interval d/t urinary and bowel retention History of neck surgery cyst removal History of shoulder surgery left, 2002 History of surgery coils for endovascular leak History of thumb surgery bilat ligament repair, 2009 History of tonsillectomy 1978 Hx of cardiac cath 2009-NO STENTS/2018 NO STENTS-[facility] Social History Smoking Status: Never smoker Do You Dip or Chew Tobacco: No Hx Alcohol Use: No Alcohol type: beer alcohol intake frequency: other Hx Substance Use: No substance use type: does not use Lab Results Anesthesia Preop Results Results Anesthesia Widget: WBC 4.71 K/uL (4.8-10.8) L 06/05/21 Hgb 12.8 g/dL (14.0-18.0) L 06/05/21 Hct 36.5 % (42-52) L 06/05/21 Plt 174 K/uL (130-400) 06/05/21 Na 138 mmol/L (136-145) 06/05/21 K 3.7 mmol/L (3.5-5.1) 06/05/21 Cl 103 mmol/L (98-107) 06/05/21 CO2 27 mmol/L (21-32) 06/05/21 BUN 28 mg/dl (6-23) H 06/05/21 Creat 1.60 mg/dl (0.6-1.4) H 06/05/21 Glucose Level 101 mg/dl (70-99(Fasting)) H 06/05/21 PT 11.0 Seconds (9.0-12.0) 06/05/21 PTT 24.5 Seconds (21.0-31.0) 06/05/21 INR 1.0 (0.9-1.1) 06/05/21 Testing Electrocardiogram Date: 06/04/21 SR with first degree AVB with occasional PVCs at 65bpm. Otherwise normal ECG. *poor data quality. Chest X-Ray Date: 03/02/21 No acute chest disease. Echocardiogram Date: 01/26/19 EF 60-65% severe cLVH subtle lag/hypokinesis involving the base posterior wall mildly dilated ascending aorta normal left ventricular systolic function mild pulmonic valvular regurgitation Stress Test Date: 04/10/17 Pharmacologic Negative for ischemia EF >70% Occasional PVCs MPHR 61% Cardiac Catheterization Date: 01/26/19 LM -large caliber vessel without significant disease LAD -aneurysmal proximally, 20% mid segment after takeoff of large first caliber diagonal, tapers prior to apex. Large first and second diagonal without significant disease. Circumflex -moderate caliber, tortuous, no significant disease. High OM1, moderate caliber vessel without significant disease. RCA -very large caliber vessel, aneurysmal in the proximal to mid segment, max diameter greater than 10 mm. 40% mid segment stenosis after aneurysm. Distal luminal irregularities. Large PDA, terminal PLB without significant disease. Summary: Mild to moderate nonobstructive coronary artery disease. Aneurysmal proximal to mid RCA with 30 to 40% mid segment stenosis. Normal intracardiac filling pressure Recommendations: No coronary etiology for patient's current rest chest pain. Further management of possible pericarditis versus evaluation for noncardiac causes of chest pain per Dr. Jordan. Other Testing Aortic stent graft duplex 03/31/2020: CONCLUSIONS: 5.9 cm by 6.2 cm aortic aneurysm sac surrounding an abdominal aortic stent graft. Patent abdominal aortic stent graft and stent graft limbs. No evidence of endoleak by color flow duplex in the aneurysm sac. 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 The left distal common iliac artery is aneurysmal and measures 2.4 cm.
[~2021-07-09 10:13] MED LIST changes: +ACETAMINOPHEN 500 MG TAB PO SCH; -ALL100 PO; -ASCA500 PO; -ASPEC325 PO; -ATEN-173 PO; -AVP150 PO; +BUPIVACAINE 0.5 % 5 MG/1 ML PF 10ML VIAL ONE; +BUPIVACAINE LIPOSOME/PF 266 MG, BUPIVACAINE/EPINEPHRINE 50 ML, SODIUM CHLORIDE 0.9% 30 ... INFIL SCH; -CARB1CAP3 PO; -CHOL2000 PO; -CLON0.1T12 PO; -CRS10 PO; -CTP2 PO; +EPINEPHrine INJ 1 MG/ML AMP ONE; +FAMOTIDINE 20 MG TAB PO SCH; -FELO10TA2 PO; +GABAPENTIN 300 MG CAP PO SCH; -GLUC250C PO; -HYDR5TAB27 PO; -INDA2.5T PO; +LR 500ML BOLUS, THEN 15ML/HR IV SCH; +LR 60ML/HR IV SCH; -MAGN400T6 PO; -MCRK20 PO; +METOCLOPRAMIDE HCL 10 MG TABLET PO SCH; -MINO1TAB PO; -NIAC1TAB59 PO; -OMEG1CAP71 PO; -PRLSR20 PO; +ROPIVACAINE 0.5% 5 MG/ML 30 ML VIAL ONE; -SPIR25TA PO; +Scopolamine 1 MG TDSY TD SCH; +TRANEXAMIC ACID 1,000 MG **IV Intra-op IV SCH; -ZTA10 PO; +ceFAZolin 2000MG 2,000 MG/15 ML SYR IV SCH
[2021-07-09] MEDS ORDERED: fentaNYL citrate 100 MCG/2 ML VIAL ONE (11:49)
[2021-07-09] MEDS ORDERED: PROPOFOL IV EMULSION 10 MG/ML 20 ML VIAL IV ONE ×3 (11:49→14:39)
[2021-07-09] MEDS ORDERED: LIDOCAINE 2% 2 ML VIAL/AMP(20MG/ML) INFIL ONE (11:49)
[2021-07-09] MEDS ORDERED: MIDAZOLAM HCL 1 MG/ML 2ML VIAL ONE (11:49)
[2021-07-09 11:55] LABS: BUN Creatinine Ratio 20.6 (10-20); Calcium 10.2 mg/dl (8.5-10.1); Est GFR (African American) 50.2 ml/min; Est GFR (Non-African American) 43.3 ml/min; Potassium 3.7 mmol/L (3.5-5.1)
[2021-07-09] MEDS ORDERED: SODIUM CHLORIDE 0.9% PF 50 ML VIAL ONE (13:09)
[2021-07-09] MEDS ORDERED: BUPIVACAINE/EPINEPHRINE 0.25% 1:200,000 30 ML VIAL ONE (13:09)
[2021-07-09] MEDS ORDERED: BUPIVACAINE LIPOSOME 1.3% 266 MG/20 ML VIAL ONE (13:10)
--- NOTE | 2021-07-09 13:11 | History & Physical Bridge Note ---
Date of Service July 09, 2021 History & Physical Bridge Note I have examined the patient, reviewed the History & Physical and in the interval since the performance of the History & Physical I have noted the following changes of clinical significance: no changes noted
[2021-07-09] MEDS ORDERED: PROMETHAZINE HCL 12.5 MG in SODIUM CHLORIDE 0.9% 50 ML IV PRN (13:39)
[2021-07-09] MEDS ORDERED: FLUMAZENIL 0.1 MG/1 ML 10 ML VIAL IV PRN (13:39)
[2021-07-09] MEDS ORDERED: ePHEDrine sulfate 50 MG/ML AMP IV PRN (13:39)
[2021-07-09] MEDS ORDERED: LABETALOL HCL IV 5 MG/ML 20ML IV PRN (13:39)
[2021-07-09] MEDS ORDERED: ATROPINE SULFATE 0.1 MG/ML 10ML SYR IV PRN (13:39)
[2021-07-09] MEDS ORDERED: HYDROmorphone INJ 1 MG/ML SYRINGE IV PRN (13:39)
[2021-07-09] MEDS ORDERED: ONDANSETRON INJ 2 MG/ML 2 ML VIAL IV PRN (13:39)
[2021-07-09] MEDS ORDERED: fentaNYL citrate 100 MCG/2 ML VIAL IV PRN (13:39)
[2021-07-09] MEDS ORDERED: NALOXONE HCL 0.4 MG/1 ML VIAL/CARP IV PRN ×2 (13:39→16:44)
[2021-07-09] MEDS ORDERED: DEXAMETHASONE SOD INJ 4 MG/ML VIAL ONE (13:51)
[2021-07-09] MEDS ORDERED: ONDANSETRON INJ 2 MG/ML 2 ML VIAL ONE (13:51)
--- NOTE | 2021-07-09 15:27 | Operative Report ---
PG Post Operative Report Pre & Post Diagnosis Operation Date: 07/09/21 12:30 Pre-Op Diagnosis: Right Knee Advanced Degenerative Joint Disease Post-Op Diagnosis: Right Knee Advanced Degenerative Joint Disease I identified the patient and participated in the time-out.: Yes Procedure Operation Date: 07/09/21 12:30 Actual Procedures p Right Total Knee Arthroplasty(Right) - Rico Bowen MD Surgeon Rico Bowen MD Meat Clerk Fili Garsia PA-C Estimated Blood Loss 50 Findings Consistent with Post-Op Diagnosis Operative findings were advanced right knee DJD. Extensive grade 4 cebr-xd-vzxv disease and eburnation of the entire medial compartment. Grade 4 changes of the patellofemoral compartment as well. He had a varus deformity to his knee. Osteophytes are primary in the medial and patellofemoral compartments. Moderate-sized joint effusion. 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 He had previous knee arthroscopy which required some relief for a period of time. Over the past 5 to 10 years he developed increased pain discomfort and deformity to his knee. Pain is become a direct bearable and affecting his quality life. He elected proceed with total knee arthroplasty. Description of Procedure Operative implants consist of: 1. Biomet Vanguard size 70 right posterior stabilized femoral component. 2. Biomet size 75 tibial tray. 3. 12 mm posterior stabilized polyethylene insert. 4. 34 x 8 and half all polypatella. The patient was taken to the operating, identified, and placed on the operating table supine position protectors were properly padded. IV antibiotics tried by anesthesia team. A spinal anesthetic and abductor canal block had provided in the holding area. Connell catheter was placed in sterile fashion. Right thigh turn was then placed in the right lower extremities then prepped and draped in usual sterile fashion. The right leg was elevated exsanguinated with use of an Esmarch in terms playset 3 mmHg. An anterior approach of the right knee was then performed to longitudinal incision centered over the patella. Sharp dissection was carried through subcutaneous this down the extensor mechanism. Medial parapatellar arthrotomy incision was made. Some subperiosteal dissection was carried out medially. The fat pad was resected from each patella tendon. Lateral patellofemoral ligament was released. Patella subluxated laterally and the knee was flexed. The osteophytes taken off distal femur. The ACL and PCL were then released from distal femur the tibia subluxated anteriorly. The external tibial alignment jig was then placed in the interface the tibia and adjusted 16 mm medially. The proximal tibial cut was made remove about a millimeter bone from the most deficient medial side. This did take a fairly large piece off laterally. The tibia sized to a size 75. I did need this downsize this in order to get proper rotation. Attention drawn the femur. The distal femur examined the sharp drill. Intramedullary canal was suction. A right 6 degree valgus cutting guide was placed. The distal femoral cutting block was pinned in place. Distal femoral cut was made to take an additional 3 mm of bone off distal femur. The femur was then sized to a size 70. The AP cutting block was pinned parallel to the epicondylar axis which was 3 degrees of external rotation. The anterior cut, anterior chamfer, posterior cut, posterior chamfer cuts were made. The box cutting guide was placed in just slight lateral box cut was made. The knee was flexed. The remnants of the medial and lateral menisci were excised. The osteophytes taken off the posterior aspect the femur. A trial femoral component was placed for the tibial tray was pinned in maximum external rotation and the drill and stem punch were used to create defect in proximal tibia for the tibial tray. Knee was then trialed and the 12 mm insert fit most appropriately. Attention drawn the patella. The patella was cleaned of all soft tissues. Patella thickness measured 25 mm in thickness was cut down to 15. Was sized to a size 34 patella. The lug holes were drilled for the 34 patella. The lateral osteophyte was removed. Patella button was placed. Knee was taken through range of motion patella tracked nicely with no thumbs test. Attention drawn to placing permanent components. All trial components were removed. Bone plug was placed in the distal femur limit blood loss. Double batch Palacos G cement was mixed. Biomet Temnosguard size 70 right posterior stabilized femoral component, size 75 tibial tray, 12 mm posterior stabilized polyethylene insert, and a 34 x 8 and half all polypatella were then cemented in place. Knee was brought out into full extension until cement hardened. Final cement check was then performed. Pericapsular tissues were injected with total 100 cc of combination of 20 cc of Exparel, 30 cc normal saline, 50 cc of quarter percent Marcaine with epinephrine. Patient did receive 1 g tranexamic acid. The tourniquet was then let down for a final tourniquet time of 57 minutes. Hemostasis assured use electrocautery. Extensor mechanism closed with combination 1 PDS suture #1 Vicryl suture in [id number] fashion. Extensor mechanism checked found to be intact with subcutaneous tissue then closed with 2 Dexon suture buried knot fashion skin was closed skin jaxson. Leg was then cleaned and dried and sterile dressing with Xeroform, 4 x 4's, sterile ABD pad, sterile cast padding, Davin bandage applied. Patient then transferred to the recovery room in stable condition. He tolerated the procedure well and there were no complications. Fili Garsia, my physician expanded duty dental assistant, was present for the entire procedure. His assistance was essential and required for appropriate patient positioning, prepping and draping, surgical exposure, performing the technical details of the operation, placement the implants, closure of the wound, and placement of the sterile bandage. I attest to the content of the Intraoperative Record and any orders documented therein. Any exceptions are noted below.
--- NOTE | 2021-07-09 15:43 | XRay Report ---
TWO VIEWS RIGHT KNEE CLINICAL HISTORY: Postoperative examination. FINDINGS: AP and crosstable lateral portable views of the right knee are obtained. A right knee arthr oplasty is in near anatomic alignment. There has been undersurface remodeling of the patella. No acut e fracture is seen. There are expected postoperative changes around the knee including skin clips, so ft tissue edema, and subcutaneous gas. IMPRESSION: Expected postoperative changes status post right knee arthroplasty. No acute fracture is seen. ACT 112: Negative or not required by law. Electronically signed by: Gil Gomez M.D. 07/09/2021 3:41 PM
--- NOTE | 2021-07-09 15:58 | Anesthesiology Progress Note ---
Date of Service July 09, 2021 Anesthesia Post Procedure Vital Signs Vital Signs: Temp Pulse Pulse Resp BP Pulse Ox 07/09/21 15:55 97.7 F 56 L 14 116/68 96 07/09/21 15:45 58 L 16 127/71 94 07/09/21 15:35 63 18 118/60 98 07/09/21 15:25 66 16 121/71 100 07/09/21 15:19 98.6 F 71 18 114/64 99 07/09/21 11:05 97.9 F 57 L 18 152/95 H 97 Transfer of Care Handoff Completed per policy Notes Mental Status: alert / awake / arousable and participated in evaluation Patient Amnestic to Procedure: Yes Nausea / Vomiting: adequately controlled Pain: adequately controlled Airway Patency, RR, SpO2: stable & adequate BP & HR: stable & adequate Hydration State: stable & adequate Anesthetic Complications: no major complications apparent and Pt Satisfied with anesthetic care
[2021-07-09] MEDS: SODIUM CHLORIDE 0.9% 1000ML 1,000 ML IV SCH (16:25)
[2021-07-09] MEDS ORDERED: ALUMINUM/MAGNESIUM SUSP 30 ML UDC PO PRN (16:44)
[2021-07-09] MEDS ORDERED: bisacodyL 10 MG SUPP PR PRN (16:44)
[2021-07-09] MEDS ORDERED: METOCLOPRAMIDE HCL INJ 5 MG/ML 2 ML VIAL IV PRN (16:44)
[2021-07-09] MEDS ORDERED: MAGNESIUM HYDROXIDE SUSP 30 ML UDC PO PRN (16:44)
[2021-07-09] MEDS ORDERED: HYDROmorphone INJ 0.5 MG/0.5 ML SYR IV PRN (16:44)
[2021-07-09] MEDS: Scopolamine CHECK PATCH PLACEMENT SCH ×2 (17:20→23:18)
[2021-07-09] MEDS: DOXYCYCLINE HYCLATE 50 MG CAP PO SCH (18:07)
[2021-07-09] MEDS: oxyCODONE HCL IR 5 MG TAB (IMMEDIATE RELEASE) PO PRN (19:32)
[2021-07-09] MEDS: OMEGA-3 (PURIFIED FISH OIL) 1 GM CAP PO SCH (21:12)
[2021-07-09] MEDS: ASPIRIN 81 MG ECTAB PO SCH (21:13)
[2021-07-09] MEDS: ASCORBIC ACID 500 MG TAB PO SCH (21:13)
[2021-07-09] MEDS: cloNIDine HCL 0.1 MG TAB PO SCH (21:14)
[2021-07-09] MEDS: DOCUSATE SODIUM 100 MG CAP PO SCH (21:15)
[2021-07-09] MEDS: FENOFIBRATE NANOCRYSTALLIZED 145 MG TABLET PO SCH (21:16)
[2021-07-09] MEDS: INDAPAMIDE 1.25 MG TAB PO SCH (21:16)
[2021-07-09] MEDS: minoxidiL 2.5 MG TAB PO SCH (21:17)
[2021-07-09] MEDS: IRBESARTAN 150 MG TAB PO SCH (21:17)
[2021-07-09] MEDS: SENNA 8.6 MG TAB PO SCH (21:18)
[2021-07-09] MEDS: ROSUVASTATIN CALCIUM 20 MG TAB PO SCH (21:18)
[2021-07-09] MEDS: POTASSIUM CHLORIDE 10 MEQ TABCR PO SCH (21:18)
[2021-07-09] MEDS: ACETAMINOPHEN 500 MG TAB PO SCH (21:27)
[2021-07-09] MEDS: TAPENTADOL HCL ER 50 MG TABCR PO SCH (21:27)
[2021-07-09] MEDS ORDERED: TRANEXAMIC ACID / 0.7% NACL 1,000 MG/100 ML BAG IV SCH (21:30)
[2021-07-09] MEDS: ceFAZolin 2000MG 2,000 MG/15 ML SYR IV SCH (22:00)
[2021-07-09] MEDS: ONDANSETRON INJ 2 MG/ML 2 ML VIAL IV PRN (22:35)
[2021-07-09] MEDS: MELATONIN 3 MG TAB PO PRN (23:18)
[2021-07-10] MEDS: SODIUM CHLORIDE 0.9% 1000ML 1,000 ML IV SCH (02:37)
[2021-07-10] MEDS: oxyCODONE HCL IR 5 MG TAB (IMMEDIATE RELEASE) PO PRN ×3 (02:40→16:33)
[2021-07-10] MEDS: ceFAZolin 2000MG 2,000 MG/15 ML SYR IV SCH (05:13)
[2021-07-10] MEDS: ACETAMINOPHEN 500 MG TAB PO SCH ×3 (05:14→21:48)
[2021-07-10] MEDS: ONDANSETRON INJ 2 MG/ML 2 ML VIAL IV PRN (06:04)
[2021-07-10] MEDS: DOXYCYCLINE HYCLATE 50 MG CAP PO SCH ×2 (06:05→19:07)
[2021-07-10 06:56] LABS: Hematocrit (blood only) 29.2 % (42-52); Hemoglobin 10.1 g/dL (14.0-18.0); Mean Corpuscular Hemoglobin 31.1 pg (25-34); Mean Corpuscular Hgb Conc 34.6 g/dL (32-36); Mean Corpuscular Volume 89.8 fL (80-100); Mean Platelet Volume 8.7 fL (7.4-10.4); Platelet Count 129 K/uL (130-400); RDW Coefficient of Variation 13.6 % (11.5-14.5); RDW Standard Deviation 44.6 fL (36.4-46.3); Red Blood Count 3.25 M/uL (4.7-6.1); White Blood Count 9.67 K/uL (4.8-10.8)
[2021-07-10 07:16] LABS: BUN Creatinine Ratio 16.5 (10-20); Calcium 8.9 mg/dl (8.5-10.1); Creatinine Clr Calc Pharmacy 43.9 ml/min; Est GFR (African American) 48.7 ml/min; Potassium 3.7 mmol/L (3.5-5.1)
[2021-07-10] MEDS ORDERED: dexAMETHasone 10 MG in SYRINGE 0 ML IV SCH (08:00)
[2021-07-10] MEDS: Scopolamine CHECK PATCH PLACEMENT SCH ×3 (08:45→23:28)
[2021-07-10] MEDS: ASCORBIC ACID 500 MG TAB PO SCH ×2 (08:53→20:44)
[2021-07-10] MEDS: ASPIRIN 81 MG ECTAB PO SCH ×2 (08:53→20:41)
[2021-07-10] MEDS: allopurinoL 100 MG TAB PO SCH (08:53)
[2021-07-10] MEDS: DOCUSATE SODIUM 100 MG CAP PO SCH ×2 (08:54→20:40)
[2021-07-10] MEDS: ESCITALOPRAM OXALATE 10 MG TAB PO SCH (08:55)
[2021-07-10] MEDS: EZETIMIBE 10 MG TABLET PO SCH (08:55)
[2021-07-10] MEDS: OMEGA-3 (PURIFIED FISH OIL) 1 GM CAP PO SCH ×2 (08:55→20:40)
[2021-07-10] MEDS: TAMSULOSIN HCL 0.4 MG CAP PO SCH (08:56)
[2021-07-10] MEDS: MAGNESIUM OXIDE 400 MG TAB PO SCH (08:56)
[2021-07-10] MEDS: PANTOprazole 40 MG TAB PO SCH (08:57)
[2021-07-10] MEDS: SPIRONOLACTONE 25 MG TAB PO SCH (08:57)
[2021-07-10] MEDS: POTASSIUM CHLORIDE 10 MEQ TABCR PO SCH ×2 (08:57→20:42)
[2021-07-10] MEDS ORDERED: DOCUSATE SODIUM/SENNA 50/8.6MG TAB PO SCH (09:00)
[2021-07-10] MEDS: MULTIVITAMIN TAB PO SCH (09:02)
--- NOTE | 2021-07-10 09:03 | Progress Notes ---
DATE OF SERVICE: 07/10/2021. SUBJECTIVE: A 71-year-old gentleman postoperative day 1 from right knee replacement. He is doing pr mary well. Did not sleep much last night, but no real great reason for that. Not in a lot of pain. No chest pain or shortness of breath. Not feeling dizzy or lightheaded. Some intermittent nausea. OBJECTIVE: VITAL SIGNS: Temperature 37.4. Vital signs are stable. GENERAL: Shows a pleasant middle-aged male. He is sitting up and eating his breakfast. Looks comfo rtable. LUNGS: Clear to auscultation. HEART: Regular rate and rhythm. ABDOMEN: Soft, nontender, nondistended. EXTREMITIES: Grossly neurovascularly intact except as follows. Examination of the right leg reveals the dressing to be clean, dry and intact. He can dorsiflex and plantarflex his foot appropriately. He can do a straight leg raise, but takes quite a bit of effort. LABORATORY DATA: Hemoglobin 10.1. Hematocrit 29.2. Electrolytes are stable. He has got some chron ic renal insufficiency with creatinine 1.64. ASSESSMENT: A 71-year-old gentleman postoperative day 1 from right knee replacement, doing pretty we ll. Looks to be at baseline. His pain seems to be controlled. He is neurologically intact. PLAN: 1. DVT prophylaxis includes thigh-high TEDs, SCDs, and aspirin twice a day. 2. PT, OT, weightbear as tolerated. Right total knee protocol. 3. Pain control, doing okay with current pain regimen. 4. Disposition: Plan to discharge to home with some home health if he does okay in therapy today. Job ID: [id number]
[2021-07-10] MEDS: cloNIDine HCL 0.1 MG TAB PO SCH ×2 (09:04→20:41)
[2021-07-10] MEDS: FELODIPINE 5 MG TABCR PO SCH (09:05)
[2021-07-10] MEDS: IRBESARTAN 150 MG TAB PO SCH ×2 (09:06→20:39)
[2021-07-10] MEDS: INDAPAMIDE 1.25 MG TAB PO SCH ×2 (09:06→20:41)
[2021-07-10] MEDS: minoxidiL 2.5 MG TAB PO SCH ×2 (09:07→20:42)
[2021-07-10] MEDS: METOPROLOL SUCC 25MG EXT REL TAB PO SCH (09:07)
[2021-07-10] MEDS: TAPENTADOL HCL ER 50 MG TABCR PO SCH ×2 (09:09→20:39)
[2021-07-10] MEDS ORDERED: HYDROmorphone INJ 0.5 MG/0.5 ML SYR IV ONE (18:46)
[2021-07-10] MEDS: MELATONIN 3 MG TAB PO PRN (20:39)
[2021-07-10] MEDS: FENOFIBRATE NANOCRYSTALLIZED 145 MG TABLET PO SCH (20:40)
[2021-07-10] MEDS: SENNA 8.6 MG TAB PO SCH (20:43)
[2021-07-10] MEDS: ROSUVASTATIN CALCIUM 20 MG TAB PO SCH (20:43)
[2021-07-11] MEDS: oxyCODONE HCL IR 5 MG TAB (IMMEDIATE RELEASE) PO PRN ×2 (03:43→09:44)
[2021-07-11] MEDS: ACETAMINOPHEN 500 MG TAB PO SCH (06:10)
[2021-07-11] MEDS: DOXYCYCLINE HYCLATE 50 MG CAP PO SCH (06:10)
[2021-07-11] MEDS: Scopolamine CHECK PATCH PLACEMENT SCH (08:39)
[2021-07-11] MEDS: ESCITALOPRAM OXALATE 10 MG TAB PO SCH (08:40)
[2021-07-11] MEDS: PANTOprazole 40 MG TAB PO SCH (08:40)
[2021-07-11] MEDS: cloNIDine HCL 0.1 MG TAB PO SCH (08:40)
[2021-07-11] MEDS: EZETIMIBE 10 MG TABLET PO SCH (08:41)
[2021-07-11] MEDS: ASPIRIN 81 MG ECTAB PO SCH (08:41)
[2021-07-11] MEDS: MULTIVITAMIN TAB PO SCH (08:42)
[2021-07-11] MEDS: INDAPAMIDE 1.25 MG TAB PO SCH (08:42)
[2021-07-11] MEDS: POTASSIUM CHLORIDE 10 MEQ TABCR PO SCH (08:42)
[2021-07-11] MEDS: minoxidiL 2.5 MG TAB PO SCH (08:42)
[2021-07-11] MEDS: ASCORBIC ACID 500 MG TAB PO SCH (08:43)
[2021-07-11] MEDS: METOPROLOL SUCC 25MG EXT REL TAB PO SCH (08:43)
[2021-07-11] MEDS: allopurinoL 100 MG TAB PO SCH (08:43)
[2021-07-11] MEDS: SPIRONOLACTONE 25 MG TAB PO SCH (08:44)
[2021-07-11] MEDS: IRBESARTAN 150 MG TAB PO SCH (08:44)
[2021-07-11] MEDS: DOCUSATE SODIUM 100 MG CAP PO SCH (08:44)
[2021-07-11] MEDS: MAGNESIUM OXIDE 400 MG TAB PO SCH (08:44)
[2021-07-11] MEDS: OMEGA-3 (PURIFIED FISH OIL) 1 GM CAP PO SCH (08:44)
[2021-07-11] MEDS: TAMSULOSIN HCL 0.4 MG CAP PO SCH (08:45)
[2021-07-11] MEDS: FELODIPINE 5 MG TABCR PO SCH (08:45)
[2021-07-11] MEDS: TAPENTADOL HCL ER 50 MG TABCR PO SCH (08:46)
--- NOTE | 2021-07-11 11:07 | Progress Notes ---
DATE OF SERVICE: 07/11/2021. SUBJECTIVE: A 71-year-old gentleman postoperative day 2 from a right knee replacement. Discharge wa s held yesterday as he was getting a little bit lightheaded and dizzy when he was getting up. This s eemed to have resolved. His pain was pretty significant yesterday and it seems better today as well. No chest pain or shortness of breath. Not feeling dizzy or lightheaded. OBJECTIVE: VITAL SIGNS: Temperature 37.2. Vital signs are stable. GENERAL: Shows a pleasant middle-aged male. He just got out of the bathroom. He looks good. He is getting around quite well. EXTREMITIES: Examination of the right leg reveals dressing clean, dry and intact. Fairly mild swell ing. He can do a straight leg raise with quite a bit of effort. He is neurologically intact. ASSESSMENT: A 71-year-old gentleman postoperative day 2 from right knee replacement, doing better. Pain seems to be better controlled. He is getting around better. He is anxious to get home. PLAN: 1. DVT prophylaxis includes thigh-high TEDs, SCDs, and aspirin twice a day. 2. PT, OT, weightbear as tolerated. Right total knee protocol. 3. Pain control, seems to be doing pretty well with current pain regimen. He seems to be improved. 4. Disposition: Plan to discharge to home with some home health later today. Job ID: [id number]
== END 2021-07-11 11:27 | disposition home or self-care (01) ==
LOC: 3E 10:13 → ASU 10:13
DX: M17.11 Unilateral primary osteoarthritis, right knee; Z79.899 Other long term (current) drug therapy; Z79.82 Long term (current) use of aspirin

== ENCOUNTER 2022-01-14 10:01 | Observation (INO) ==
--- NOTE | 2022-01-07 11:41 | Anesthesiology Consultation ---
Date of Service January 07, 2022 Assessment & Plan (1) Encounter for pre-operative examination: Chart Review Chart Review: Acceptable Risk for Surgery Consults Requested Had other knee done earlier in the year after cardiology evaluation found him acceptably optimized History Surgery Operation Date: 01/14/22 08:50 Proposed Procedures p Left Total Hip Arthroplasty - Rico Bowen MD Height/Weight Height: 5 ft 10 in Weight: 79.832 kg Allergies Allergy/AdvReac Type Severity Reaction Status Date / Time No Known Allergies Allergy Unknown Verified 01/07/22 10:49 Medications Home Medications Medication Instructions Recorded Confirmed Last Taken allopurinol 100 mg tablet 100 mg PO QAM 01/26/19 01/07/22 07/08/21 10:00 ascorbic acid (vitamin C) 1,000 mg 1 g PO BID 01/26/19 01/07/22 07/08/21 20:45 tablet carbamazepine 200 mg 200 mg PO BID 01/26/19 01/07/22 07/09/21 08:30 tablet,extended release,12 hr (Tegretol XR) clonidine HCl 0.1 mg tablet 0.1 mg PO TID 01/26/19 01/07/22 07/09/21 08:30 ezetimibe 10 mg tablet (Zetia) 10 mg PO QAM 01/26/19 01/07/22 07/09/21 08:30 felodipine 5 mg tablet,extended 5 mg PO QAM 01/26/19 01/07/22 07/09/21 08:30 release 24 hr fenofibrate micronized 200 mg 200 mg PO QPM 01/26/19 01/07/22 01/25/19 capsule indapamide 2.5 mg tablet 2.5 mg PO BID 01/26/19 01/07/22 07/09/21 08:30 irbesartan 150 mg tablet 150 mg PO BID 01/26/19 01/07/22 07/08/21 20:45 magnesium oxide 400 mg PO QAM 01/26/19 01/07/22 07/08/21 20:45 metoprolol succinate 50 mg 25 mg PO QAM 01/26/19 01/07/22 07/09/21 08:30 tablet,extended release 24 hr metronidazole 1 % topical gel 1 applic topical DAILY 01/26/19 01/07/22 07/06/21 minoxidil 10 mg tablet 5 mg PO BID 01/26/19 01/07/22 07/09/21 08:30 omega 5-utq-fpy-fish oil 1,000 mg 2 cap PO BID 01/26/19 01/07/22 06/25/21 (120 mg-180 mg) capsule (Fish Oil) potassium chloride 10 mEq 10 meq PO QAM 01/26/19 01/07/22 07/08/21 20:45 tablet,extended release(part/cryst) rosuvastatin 40 mg tablet (Crestor) 40 mg PO QPM 01/26/19 01/07/22 07/08/21 20:45 spironolactone 25 mg tablet 25 mg PO QAM 01/26/19 01/07/22 07/08/21 10:00 (Aldactone) doxycycline monohydrate 50 mg 50 mg PO QAM 02/24/21 01/07/22 07/09/21 08:30 tablet acetaminophen 500 mg capsule 1,000 mg PO TID Pain 30 days #180 07/07/21 01/07/22 Unknown caps ketorolac 10 mg tablet 10 mg PO Q6 5 days #20 tabs 07/07/21 01/07/22 Unknown ondansetron HCl 4 mg tablet 4 mg PO Q6 PRN nausea #30 tabs 07/07/21 01/07/22 Unk nown oxycodone 5 mg tablet 5 - 10 mg PO Q6 PRN pain #40 tabs 07/07/21 01/07/22 Unknown sennosides 8.6 mg-docusate sodium 1 tab-cap PO DAILY #14 tabs 07/07/21 01/07/22 Unknown 50 mg tablet (Senokot-S) tamsulosin 0.4 mg capsule (Flomax) 0.4 mg PO DAILY #7 caps 07/07/21 01/07/22 07/08/21 20:45 aspirin 81 mg tablet,delayed See Rx Instructions .Route 08/19/21 01/07/22 Unknown release .COMPLEX #90 tabs Past Medical History Medical History Abdominal aneurysm s/p endovascular repair 2005 with chronic endovascular leak, s/p multiple interventions with [place] coils (> 60 per pt), follows with vascular surgery annually with [facility] Arthritis of left hip CAD (coronary artery disease) "mild to moderate nonobstructive coronary artery disease", follows with [facility] cardio Cardiac murmur CKD (chronic kidney disease) stage 3, GFR 30-59 ml/min F/U [facility] Dyslipidemia, goal LDL below 70 Hip bursitis, left History of COVID-19 03/2020 [facility]-fatigue, fever, myalgias-recovered at home- symptoms resolved 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 Past Family History Family History Sister Family history of diabetes mellitus Grandfather (Maternal) Family history of diabetes mellitus Past Surgical History Surgical History H/O endovascular stent graft for abdominal aortic aneurysm 2005 History of appendectomy History of arthroscopy right knee with meniscus repair, 2007 History of colonoscopy History of esophagogastroduodenoscopy (EGD) History of lumbar surgery 12/15/2016: L5-S1 decompression fusion. Grade 1 view, MAC#3, ETT#8.0. No issues per anesthesia progress note. Hospitalist note and pt report extended interval d/t urinary and bowel retention History of neck surgery cyst removal History of shoulder surgery left, 2001 History of surgery coils for endovascular leak History of thumb surgery bilat ligament repair, 2008 History of tonsillectomy 1977 History of total knee replacement right Hx of cardiac cath 2009-NO STENTS/2018 NO STENTS-[facility] Social History Smoking Status: Never smoker Do You Dip or Chew Tobacco: No Hx Alcohol Use: No Alcohol type: beer alcohol intake frequency: other Hx Substance Use: No substance use type: does not use Testing Laboratory Results Laboratory Tests 01/27/19 12/30/21 12/30/21 05:13 10:33 10:33 Hgb 13.5 L Plt Count 208 Potassium 4.2 Creatinine 1.66 H Hemoglobin A1c 6.5 H Electrocardiogram Date: 05/29/21 Findings: + NSR @ (65) occ PVC Echocardiogram Date: 01/26/19 EF: 65% LV Function: normal Other Findings: + LVH (Severe) Cardiac Catheterization Date: 01/26/19 mild to moderate CAD
[~2022-01-14 10:01] MED LIST changes: -BUPIVACAINE LIPOSOME/PF 266 MG, BUPIVACAINE/EPINEPHRINE 50 ML, SODIUM CHLORIDE 0.9% 30 ... INFIL SCH; +CeleBREX 200 MG CAP PO SCH; -EPINEPHrine INJ 1 MG/ML AMP ONE; -GABAPENTIN 300 MG CAP PO SCH; -ROPIVACAINE 0.5% 5 MG/ML 30 ML VIAL ONE; -TRANEXAMIC ACID 1,000 MG **IV Intra-op IV SCH; +TRANEXAMIC ACID 1,000 MG **IV Pre-op IV SCH
--- NOTE | 2022-01-14 10:55 | History & Physical Bridge Note ---
Date of Service January 14, 2022 History & Physical Bridge Note I have examined the patient, reviewed the History & Physical and in the interval since the performance of the History & Physical I have noted the following changes of clinical significance: no changes noted
[2022-01-14] MEDS ORDERED: MIDAZOLAM HCL 1 MG/ML 2ML VIAL ONE ×2 (11:40)
[2022-01-14] MEDS ORDERED: HYDROmorphone INJ 2 MG/ML SYR/VIAL IV PRN (11:44)
[2022-01-14] MEDS ORDERED: ONDANSETRON INJ 2 MG/ML 2 ML VIAL IV PRN ×2 (11:44→16:09)
[2022-01-14] MEDS ORDERED: fentaNYL citrate 100 MCG/2 ML VIAL IV PRN (11:44)
[2022-01-14] MEDS ORDERED: ATROPINE SULFATE 0.1 MG/ML 10ML SYR IV PRN (11:44)
[2022-01-14] MEDS ORDERED: PROMETHAZINE HCL 12.5 MG in SODIUM CHLORIDE 0.9% 50 ML IV PRN (11:44)
[2022-01-14] MEDS ORDERED: ePHEDrine sulfate 50 MG/ML AMP IV PRN (11:44)
[2022-01-14] MEDS ORDERED: EPINEPHrine INJ 1 MG/ML AMP ONE (12:52)
[2022-01-14] MEDS ORDERED: BUPIVACAINE 0.5 % 5 MG/1 ML MPF 30ML VIAL ONE (12:53)
[2022-01-14] MEDS ORDERED: ePHEDrine sulfate 50 MG/ML AMP ONE (13:24)
[2022-01-14] MEDS ORDERED: PROPOFOL IV EMULSION 10 MG/ML 20 ML VIAL IV ONE (13:24)
[2022-01-14] MEDS ORDERED: LIDOCAINE 2% MPF LOCAL 5 ML VIAL INFIL ONE (13:24)
--- NOTE | 2022-01-14 14:41 | Operative Report ---
PG Post Operative Report Pre & Post Diagnosis Operation Date: 01/14/22 12:30 Pre-Op Diagnosis: Degenerative Joint Disease Hip Left Post-Op Diagnosis: Degenerative Joint Disease Hip Left I identified the patient and participated in the time-out.: Yes Procedure Operation Date: 01/14/22 12:30 Actual Procedures p Left Total Hip Arthroplasty(Left) - Rico Bowen MD Surgeon Rico Bowen MD Dictaphone Mechanic Fili Garsia PA-C Estimated Blood Loss 200 Findings Consistent with Post-Op Diagnosis Operative findings were advanced left hip DJD. He had grade 4 [id number] disease of the femoral head and acetabulum. Significant/large right hip joint effusion. Fairly small osteophyte formation around the femoral head and acetabulum. 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 He underwent a right knee replacement earlier this year and is done well. He has developed increased pain discomfort in his left hip as he become more active. X-rays show advanced hip arthritis. Failed conservative measures and elected proceed with total hip arthroplasty. Description of Procedure Operative implants consist of: 1. Biomet G7 size 56 mm acetabular shell. 2. 6.5 cancellous acetabular screws 1 of 35 mm length 120 mm length. 3. Harwood hole entry level programmer. 4. Highly cross-linked polyethylene liner with a 56 mm outer diameter and 36 mm inner diameter. 5. DePuy Corail size 12 KLA femoral stem. 6. +5/36 mm ceramic articular ball. The patient was taken to the operating, identified, placed on the operating table supine position protectors were properly padded. IV antibiotics arrived by anesthesia team. A spinal anesthetic had been implemented holding area. Connell catheter was placed in sterile fashion. The patient was then placed in the right lateral decubitus was placed position. An axillary roll was placed. A Stulberg hip positioner was used for positioning. Left hip and leg were then prepped and draped in usual sterile fashion. Posterior lateral posterior left hip was then performed through a curvilinear incision centered over the greater trochanter. Sharp dissection was carried through subcutaneous tissues down below the IT band gluteal fascia. The IT band gluteal fascia/longitudinally in line with skin incision. The underlying greater trochanter bursa was excised. The piriformis and external rotators were tagged and taken off the posterior aspect hip joint capsule. Great care was taken throughout the procedure protect the sciatic nerve at all times. Hip was internally rotated and dislocated. Femoral neck osteotomy cut was made with Final Cut about 10 mm above the lesser trochanter. Femoral head was removed and sent for pathology. The femur was retracted anteriorly. Attention was then drawn to the acetabulum. The acetabular labrum was excised. Pulmonary fat was excised. Sequential reaming of the acetabulum was then performed again with size 47 progressing up to 55. I did reamed with a 56 reamer and then placed a 56 mm Biomet G7 acetabular shell in about 40 degrees lateral opening and 20 degrees of anteversion. 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 I want to maximize his stability. A trial liner was placed. The cup was secured with 2 screws. Attention drawn the femur. The proximal femur was entered with a cookie cutter followed by canal finder. I then broached beginning with size 8 and progressing up to a 12. Got excellent fit with a 12. I reduced the hip and was fully stable in full extension and external rotation and flexion to 90 degrees and internal rotation to over 50 degrees. Leg length seemed appropriate. Soft tissue tension seemed a little bit lax but was extremely stable. I did well lengthen so we use these implants. Nupathe all trial implants were removed. An apex hole entry level programmer was placed. Highly cross-linked polyethylene liner was placed. A DePuy KLA 12/125 degree angle stem was placed. A +5/36 mm ceramic articular ball was placed. Hip was located once again found to be stable. Attention drawn toward closing. Nupathe wounds irrigated cosigns pulsatile lavage solution. I did inject locally with 60 cc of half percent Marcaine with epinephrine. Posterior capsule and external rotators then repaired through drill holes in the posterior trochanter with #2 Tycron suture. The IT band gluteal fascia then closed in 1 PDS suture running fashion for subcutaneous tissues then closed with 2 Dexon suture in a buried interrupted fashion the skin was closed skin jaxson. Legs then cleaned and dried a sterile dressing was Xeroform, 4 x 4's, sterile ABD pads and foam tape was applied. The patient then transferred to the recovery room in stable condition. Patient tolerated procedure well and there were no complications. Fili Garsia, my physician distribution center assistant, was present for the entire procedure. His assistance was essential and required for appropriate patient positioning, prepping and draping, surgical exposure, performing the technical details of the operation, placement the implants, closure of the wound, and placement of the sterile bandage. I attest to the content of the Intraoperative Record and any orders documented therein. Any exceptions are noted below.
--- NOTE | 2022-01-14 15:27 | Anesthesiology Progress Note ---
Date of Service January 14, 2022 Anesthesia Post Procedure Vital Signs Vital Signs: Temp Pulse Pulse Resp BP Pulse Ox O2 Del Method 01/14/22 15:20 36.5 C 65 16 159/97 H 96 Room Air 01/14/22 15:10 65 16 146/103 H 98 Room Air 01/14/22 15:00 56 L 18 147/89 H 98 Room Air 01/14/22 14:50 58 L 18 151/91 H 98 Room Air 01/14/22 14:40 55 L 18 148/92 H 100 Oxymask 01/14/22 14:32 36.0 C L 56 L 12 147/85 H 98 Oxymask 01/14/22 10:41 36.4 C L 77 20 157/99 H 94 Room Air O2 Flow Rate 01/14/22 15:20 01/14/22 15:10 01/14/22 15:00 01/14/22 14:50 01/14/22 14:40 9 01/14/22 14:32 9 01/14/22 10:41 Pain Intensity Left Hip: Pain Intensity: 3 Transfer of Care Handoff Completed per policy Notes Mental Status: alert / awake / arousable Patient Amnestic to Procedure: Yes Nausea / Vomiting: adequately controlled Pain: adequately controlled Airway Patency, RR, SpO2: stable & adequate BP & HR: stable & adequate Hydration State: stable & adequate Neuraxial Anesthesia: was administered and sensory block is resolving Anesthetic Complications: no major complications apparent and Pt Satisfied with anesthetic care
--- NOTE | 2022-01-14 15:42 | XRay Report ---
XR hip 1V LT w pelvis CLINICAL HISTORY: IN PACU - Post Surgical TECHNIQUE: 2 views of the left hip and single frontal view of the pelvis were obtained. Comparison: Comparison is made to CT pelvis 01/31/2013 FINDINGS: Patient is status post total hip arthroplasty with expected postsurgical changes including soft tissu e swelling and subcutaneous emphysema. No periarticular lucency or hardware fracture is seen. Posteri or fixation hardware in the lumbosacral spine and aortobiiliac stent noted. IMPRESSION: Expected postoperative appearance status post placement of total hip arthroplasty. ACT 112: Negative or not required by law. Electronically signed by: Camden Malloy M.D. 01/14/2022 3:40 PM
[2022-01-14] MEDS: Scopolamine CHECK PATCH PLACEMENT SCH (16:08)
[2022-01-14] MEDS ORDERED: MAGNESIUM HYDROXIDE SUSP 30 ML UDC PO PRN (16:09)
[2022-01-14] MEDS ORDERED: ASPIRIN 81 MG ECTAB PO SCH (16:09)
[2022-01-14] MEDS ORDERED: ALUMINUM/MAGNESIUM SUSP 30 ML UDC PO PRN (16:09)
[2022-01-14] MEDS ORDERED: HYDROmorphone INJ 0.5 MG/0.5 ML SYR IV PRN (16:09)
[2022-01-14] MEDS ORDERED: bisacodyL 10 MG SUPP PR PRN (16:09)
[2022-01-14] MEDS ORDERED: NO NSAIDS SCH (16:09)
[2022-01-14] MEDS ORDERED: NALOXONE HCL 0.4 MG/1 ML VIAL/CARP IV PRN (16:09)
[2022-01-14] MEDS ORDERED: METOCLOPRAMIDE HCL INJ 5 MG/ML 2 ML VIAL IV PRN (16:09)
[2022-01-14] MEDS ORDERED: ONDANSETRON 4 MG OD TAB PO PRN (16:29)
[2022-01-14] MEDS: SODIUM CHLORIDE 0.9% 1000ML 1,000 ML IV SCH (16:37)
[2022-01-14] MEDS ORDERED: cloNIDine HCL 0.1 MG TAB PO ONE (16:46)
[2022-01-14] MEDS ORDERED: ASCORBIC ACID 500 MG TAB PO SCH (17:00)
[2022-01-14] MEDS: traMADol HCL 50 MG TABLET PO PRN (19:25)
[2022-01-14] MEDS: IRBESARTAN 150 MG TAB PO SCH (20:10)
[2022-01-14] MEDS: minoxidiL 2.5 MG TAB PO SCH (20:10)
[2022-01-14] MEDS: INDAPAMIDE 1.25 MG TAB PO SCH (20:10)
[2022-01-14] MEDS: ASCORBIC ACID 500 MG TAB PO SCH (20:11)
[2022-01-14] MEDS: DOCUSATE SODIUM 100 MG CAP PO SCH (20:11)
[2022-01-14] MEDS: DOCUSATE SODIUM/SENNA 50/8.6MG TAB PO SCH (20:11)
[2022-01-14] MEDS: cloNIDine HCL 0.1 MG TAB PO SCH (20:11)
[2022-01-14] MEDS: OMEGA-3 (PURIFIED FISH OIL) 1 GM CAP PO SCH (20:11)
[2022-01-14] MEDS: ASPIRIN 81 MG ECTAB PO SCH (20:11)
[2022-01-14] MEDS: ceFAZolin 2000MG 2,000 MG/15 ML SYR IV SCH (20:27)
[2022-01-14] MEDS ORDERED: TRANEXAMIC ACID / 0.7% NACL 1,000 MG/100 ML BAG IV SCH (20:45)
[2022-01-14] MEDS ORDERED: ROSUVASTATIN CALCIUM 20 MG TAB PO SCH (21:00)
[2022-01-14] MEDS ORDERED: SENNA 8.6 MG TAB PO SCH (21:00)
[2022-01-14] MEDS: ACETAMINOPHEN 500 MG TAB PO SCH (21:55)
[2022-01-15] MEDS: Scopolamine CHECK PATCH PLACEMENT SCH ×2 (00:21→08:52)
[2022-01-15] MEDS: SODIUM CHLORIDE 0.9% 1000ML 1,000 ML IV SCH (02:01)
[2022-01-15] MEDS: traMADol HCL 50 MG TABLET PO PRN ×2 (02:04→07:48)
[2022-01-15] MEDS: ceFAZolin 2000MG 2,000 MG/15 ML SYR IV SCH (05:21)
[2022-01-15] MEDS: ACETAMINOPHEN 500 MG TAB PO SCH ×2 (06:43→13:15)
[2022-01-15] MEDS: ASCORBIC ACID 500 MG TAB PO SCH (07:34)
[2022-01-15] MEDS: OMEGA-3 (PURIFIED FISH OIL) 1 GM CAP PO SCH (07:35)
[2022-01-15] MEDS: minoxidiL 2.5 MG TAB PO SCH (07:35)
[2022-01-15] MEDS: INDAPAMIDE 1.25 MG TAB PO SCH (07:35)
[2022-01-15] MEDS: IRBESARTAN 150 MG TAB PO SCH (07:35)
[2022-01-15] MEDS: DOCUSATE SODIUM 100 MG CAP PO SCH (07:35)
[2022-01-15] MEDS: cloNIDine HCL 0.1 MG TAB PO SCH ×2 (07:36→13:16)
[2022-01-15] MEDS: DOCUSATE SODIUM/SENNA 50/8.6MG TAB PO SCH (07:36)
[2022-01-15 07:37] LABS: Basophils # (auto) 0.02 K/uL (0-0.2); Basophils % (auto) 0.2 %; Eosinophils # (auto) 0.13 K/uL (0-0.50); Eosinophils % (auto) 1.5 %; Hematocrit (blood only) 31.5 % (40.1-51.0); Hemoglobin 11.3 g/dl (14.0-18.0); Immature Granulocytes # (auto) 0.03 K/uL (0.00-0.02); Immature Granulocytes % (auto) 0.4 %; Lymphocytes % (auto) 15.5 %; Mean Corpuscular Hemoglobin 32.1 pg (25.0-34.0); Mean Corpuscular Hgb Conc 35.9 g/dL (32.0-36.0); Mean Corpuscular Volume 89.5 fL (80.0-100.0); Monocytes # (auto) 0.91 K/uL (0.24-0.82); Monocytes % (auto) 10.8 %; Neutrophils # (auto) 6.01 K/uL (1.4-6.5); Neutrophils % (auto) 71.6 %; Platelet Count 156 K/uL (130-400); RDW Coefficient of Variation 13.2 % (11.5-14.5); RDW Standard Deviation 43.3 fL (36.4-46.3); Red Blood Count 3.52 M/uL (4.63-6.08)
[2022-01-15] MEDS: POTASSIUM CHLORIDE 10 MEQ TABCR PO SCH ×2 (07:37→09:40)
[2022-01-15] MEDS: ASPIRIN 81 MG ECTAB PO SCH (07:38)
[2022-01-15] MEDS ORDERED: dexAMETHasone 10 MG in SYRINGE 0 ML IV SCH (08:00)
[2022-01-15 08:02] LABS: BUN Creatinine Ratio 14.7 (10-20); Creatinine Clr Calc Pharmacy 44.2 ml/min; Est GFR (African American) 49.1 ml/min; Est GFR (Non-African American) 42.4 ml/min; Potassium 3.4 mmol/L (3.5-5.1)
[2022-01-15] MEDS ORDERED: FELODIPINE 5 MG TABCR PO SCH (09:00)
[2022-01-15] MEDS ORDERED: SPIRONOLACTONE 25 MG TAB PO SCH (09:00)
[2022-01-15] MEDS ORDERED: MAGNESIUM OXIDE 400 MG TAB PO SCH (09:00)
[2022-01-15] MEDS ORDERED: METOPROLOL SUCC 25MG EXT REL TAB PO SCH (09:00)
[2022-01-15] MEDS ORDERED: allopurinoL 100 MG TAB PO SCH (09:00)
[2022-01-15] MEDS ORDERED: DOXYCYCLINE HYCLATE 50 MG CAP PO SCH (09:00)
[2022-01-15] MEDS ORDERED: TAMSULOSIN HCL 0.4 MG CAP PO SCH (09:00)
[2022-01-15] MEDS ORDERED: EZETIMIBE 10 MG TABLET PO SCH (09:00)
[2022-01-15] MEDS ORDERED: MULTIVITAMIN TAB PO SCH (09:00)
[2022-01-15] MEDS ORDERED: POTASSIUM CHLORIDE CRTAB 20 MEQ TABCR PO ONE (09:28)
--- NOTE | 2022-01-15 09:57 | Progress Notes ---
DATE OF SERVICE: 01/15/2022 SUBJECTIVE: A 71-year-old, postoperative day 1 from a left hip replacement. He is doing well. Pain is controlled. No chest pain or shortness of breath. Not feeling dizzy or lightheaded. Hoping to go home. OBJECTIVE: VITAL SIGNS: Temperature is 37.2. Vital signs are stable. He has been a bit hypertensive. GENERAL: Reveals a pleasant middle-aged male on bedside chair, looks completely comfortable. LUNGS: Clear to auscultation. ABDOMEN: Nondistended. EXTREMITIES: Grossly neurovascularly intact except as follows.: Examination of the left hip reveals dressing clean, dry and intact. Leg lengths were equal. Thigh is soft and supple. He is neurologi lila intact. LABORATORY DATA: Hemoglobin 11.3. Hematocrit 31.5. Stable creatinine though is chronically elevated, but potassium is a little bit low at 3.4. ASSESSMENT: A 71-year-old gentleman postoperative day 1 from a left hip replacement, doing well. Pa in is controlled. Hip is located. He is neurologically intact. His creatinine is stable. We will avoid NSAID use. Potassium is a little low and we will supplement that. PLAN: 1. DVT prophylaxis includes thigh-high TEDs, SCDs, and aspirin twice a day. 2. PT, OT, weightbear as tolerated. Left total hip protocol. He can weight bear as tolerated. No need to obey hip precautions. 3. Pain control, doing okay with current pain regimen. 4. Hypokalemia. We will supplement his potassium. 5. Disposition: Plan to discharge to home with some home health and his family's assistance if he d oes okay in therapy today. Job ID: [id number]
--- NOTE | 2022-01-19 06:48 | Discharge Summary ---
Date of Service January 19, 2022 Discharge Data Procedures Performed Operation Date: 01/14/22 12:30 Actual Procedures p Left Total Hip Arthroplasty(Left) - Rico Bowen MD Hospital Course (1) S/P total left hip arthroplasty: This is a 71 year old patient admitted on 01/14/22 and underwent total hip arthroplasty. He tolerated the procedure well and there were no complications. Transferred to the PACU post op and later to the orthopedic floor for further care. He was given ancef for antibiotic prophylaxis. He was also given DONTE stockings, SCDs, and aspirin for DVT prophylaxis. Hemoglobin, hematocrit, and vital signs were monitored during his hospital stay and remained stable. Did not require any blood transfusions. There were no complications during his hospital stay. By post op day #1 the patient was tolerating a regular diet, pain was reasonably controlled with oral pain medicine, and he was participating in physical therapy. On post op day #1 the patient was discharged home and set up with home health care. He was given printed discharge instructions including prescriptions for extra strength tylenol, aspirin, tramadol, zofran, senokot, and flomax. Continue physical therapy, weight bearing as tolerated. Continue hip precautions. Continue DONTE stockings. Follow up approximately 2 weeks post op or sooner if there are problems or concerns. Coding Level of Care Code None Diagnoses S/P total left hip arthroplasty Z96.642
== END 2022-01-15 14:17 | disposition home health service (06) ==
LOC: 3W 10:01 → ASU 10:01

== ENCOUNTER 2023-04-08 02:52 | Observation (INO) ==
--- OUTSIDE RECORDS SUMMARY | 2023-04-08 02:57 | External Medical Summary | Summary of Care ---
Author Name Unknown Organization [facility] Address [address] [place] [address] Phone [phone] Care Team Providers Care Trucking Manager Name Role Phone Domingo Zhang MD Primary Care Provider [phone] Reason for Visit * Reason Onset Date Comments STAIR AAA 06/29/2022 Encounter Details Date Type Department Care Team (Late st Contact Info) Description 06/29/2022 Telephone STAIR AAA [address] [place], [place] [id number] Program, Stair [address] [place] [address] STAIR AAA Allergies No known active allergiesdocumented as of this encounter (statuses as of 04/05/2023) Medications Medication Sig Dispensed Refills Start Date End Date Status VITAMIN C 1000 MG PO TABSIndications:H TN, goal below 140/90 one pill twice a day 100 3 7 Active OMEGA 3-6-9 FATTY ACIDS PO CAPS 1000 mg--2 pills 2 times a day 0 Active MAGNESIUM 400 MG PO CAPS Take by mouth 250 mg 2 times a day . 1 Cap 0 4 Active Omeprazole 20 MG Oral Capsule Delayed Release (PriLOSEC) Take by mouth 1 Capsule in the morning. 90 Capsule 0 2 Active Additional Information Patient not taking.Reported on 03/29/2022 metroNIDAZOLE 1 % External Gel (Metrogel)Indicat ions:Rosacea Apply topically to affected area 2 times a day . To affected area. 60 g 11 2 Active Minoxidil 10 MG Oral Tablet (Loniten) TAKE 1/2 TABLET TWICE DAILY 90 Tablet 3 2 Active Irbesartan 150 MG Oral Tablet (Avapro)Indicatio ns:HTN, goal below 140/90 Take 1 Tablet by mouth in the morning and 1 Tablet before bedtime. 180 Tablet 3 2 Active Timolol Maleate 0.5 % Ophthalmic Solution (Timoptic) INSTILL 1 DROP INTO LEFT EYE 2 TIMES DAILY. 0 2 Active Rosuvastatin Calcium 40 MG Oral Tablet (Crestor)Indicati ons:Dyslipidemia, goal to be determined TAKE 1 TABLET EVERY DAY 90 Tablet 3 3 Active Amoxicillin 500 MG Oral Capsule (Amoxil) 4 capsule 1 hour prior to procedure 4 Capsule 1 3 Active guaiFENesin ER 600 MG Oral Tablet Extended Release 12 Hour (Humibid LA)Indications:CO VID-19 virus infection Take 1 Tablet by mouth 2 times a day as needed for Congestion. 20 Tablet 0 3 Active GLUCOSAMINE-CHOND ROITIN-MSM PO TABS 1 pill 2 times a day 0 07/12/19 23 Discontinued Escitalopram Oxalate 10 MG Oral Tablet (Lexapro)Indicati ons:Adjustment disorder with anxiety Take by mouth 1 Tablet in the morning. 1/2 tab daily x 7 days. 30 Tablet 5 2 07/12/19 23 Discontinued Aspirin 81 MG Oral Capsule Take by mouth 2 times a day . 0 07/12/19 23 Discontinued cloNIDine HCl 0.1 MG Oral Tablet (Catapres) Take by mouth 1 Tablet in the morning AND 1 Tablet at noon AND 1 Tablet before bedtime. 270 Tablet 3 2 09/15/19 23 Discontinued Metoprolol Succinate ER 50 MG Oral Tablet Extended Release 24 Hour (toPROL XL)Indications:HT N, goal below 140/90 TAKE 1/2 TABLET EVERY DAY 45 Tablet 3 2 08/09/19 23 Discontinued Allopurinol 100 MG Oral Tablet (Zyloprim)Indicat ions:Calculus of kidney TAKE 1 TABLET EVERY DAY 90 Tablet 2 2 09/08/19 23 Discontinued Potassium Chloride Shantelle ER 10 MEQ Oral Tablet Extended Release TAKE 1 TABLET TWICE DAILY 180 Tablet 1 2 07/19/19 23 Discontinued carBAMazepine ER 200 MG Oral Capsule Extended Release 12 Hour (Carbatrol) TAKE 1 CAPSULE TWICE DAILY 180 Capsule 1 2 07/19/19 23 Discontinued Doxycycline Hyclate 20 MG Oral TabletIndications :Rosacea,Rhinophy ma Take 1 pill 2x daily with or without food 60 Tablet 5 2 07/29/19 23 Discontinued HYDROcodone-Aceta minophen 5-325 MG Oral TabletIndications :Chronic pain of right knee,Lumbar herniated disc Take by mouth 1-2 Tablets every 8 hours as needed for Pain, Mild. 100 Tablet 0 2 07/21/19 23 Discontinued(Re fill) Ezetimibe 10 MG Oral Tablet (Zetia)Indication s:Dyslipidemia, goal LDL below 100 TAKE 1 TABLET EVERY DAY 90 Tablet 1 2 10/11/19 23 Discontinued Indapamide 2.5 MG Oral Tablet (Lozol) TAKE 2 TABLETS EVERY DAY 180 Tablet 1 2 12/13/19 23 Discontinued Felodipine ER 5 MG Oral Tablet Extended Release 24 Hour (Plendil) TAKE 1 TABLET EVERY DAY 90 Tablet 1 2 12/13/19 23 Discontinued Fenofibrate 200 MG Oral CapsuleIndication s:High triglycerides TAKE 1 CAPSULE EVERY DAY WITH A MEAL 90 Capsule 1 3 12/02/19 23 Discontinued Clindamycin Phosphate 1 % External LotionIndications :Prurigo nodularis,Follicu litis APPLY TOPICALLY TO NEW AND RESOLVING AREAS ON NECK AND GARCÍA TWICE DAILY. ALSO APPLY TO SKIN DIRECTLY AFTER SHAVING 60 mL 2 3 07/26/19 23 Discontinued Spironolactone 25 MG Oral Tablet (Aldactone)Indica tions:HTN, goal below 140/90 TAKE 1 TABLET EVERY DAY 90 Tablet 1 3 12/24/19 23 Discontinued documented as of this encounter (statuses as of 04/05/2023) Active Problems Problem Noted Date Diagnosed Date H/O dysplastic nevus 01/06/2021 Overview: Moderately atypical nevus (R lateral upper abdomen 01/14) Chronic kidney disease, stage 3b 09/08/2020 Overview: Per CKD protocol Benign hypertension with stage 3b chronic kidney disease 08/04/2020 Overview: Per CKD protocol Hypokalemia 01/26/2018 Gastroesophageal reflux disease without esophagi tis 01/26/2018 Erectile dysfunction 08/14/2015 SBE (subacute bacterial endocarditis) prophylaxi s candidate 07/20/2015 Vitamin D insufficiency 02/12/2015 Cyst and pseudocyst of pancreas 07/14/2014 MEDICATION USE AGREEMENT 07/19/2013 Overview: Signed by patient 07/18/2013 Endoleak post (EVAR) endovascular aneurysm repai r 07/16/2012 Obstructive sleep apnea on CPAP 05/25/2012 Overview: 05/2012 -- CPAP auto at 9 cwp 12/2011 Split PSG -- AHI 22.8 baseline, CPAP 10 cwp AHP Rosacea 03/11/2009 DYSLIPIDEMIA, GOAL LDL BELOW 100 03/05/2009 Overview: Per Lipid Taxonomy. S/P AAA (abdominal aortic aneurysm) repair 11/05 Overview: Modified per AAA Repaired Protocol #13. Other specified prophylactic or treatment measur e 01/09/2007 High triglycerides 12/29/2006 ADVANCE DIRECTIVE INFORMATION 11/22/2006 Overview: No, Advance Directive brochure given to patient at prior appointment. HTN, goal below 140/90 08/15/2002 Chronic ischemic heart disease 08/15/2002 Trigeminal neuralgia 01/10/2000 documented as of this encounter (statuses as of 04/05/2023) Resolved Problems Problem Noted Date Diagnosed Date Resolved Date Benign hypertension with chr onic kidney disease, stage III 07/23/2018 08/06/2020 Overview: Per CKD protocol Prediabetes 04/09/2018 09/09/2021 Overview: Per Prediabetes protocol #1 Kidney disease, chronic, sta ge III (GFR 30-59 ml/min) 06/09/2014 08/08/2018 Overview: Per CKD protocol #1 Trigeminal neuralgia 03/15/2010 010 EXAMINATION OF PARTICIPANT I N CLINICAL TRIAL-Genomics 05/07/2009 07/10/2009 Overview: Renamed Per Clinical Trials Billing Project. Study Titile: Genomic Markers for Patients with Cardiovascular Disease Project #[id number] PI: Claudia Quiroga MD Please call [phone] with study related questions GENOMICS CARDIO RESEARCH OTHER*[id number] 05/07/2009 05/03/2016 Overview: Renamed Per Clinical Trials Billing Project. Study Titile: Genomic Markers for Patients with Cardiovascular Disease Project #[id number] PI: Claudia Quiroga MD Please call [phone] with study related questions Dyslipidemia, goal to be determined 03/09/2004 03/05/2009 Overview: Per Lipid Taxonomy. Abdominal aortic aneurysm 03/03/2004 Overview: Modified per AAA Repaired Protocol #13. documented as of this encounter (statuses as of 04/05/2023) Immunizations Name Administration Dates Next Due COVID-19 mRNA, LNP-s, No Pre serve, 2-Dose Series (Pfizer) 07/04/2020,06/12/2020 PPD 02/08/2010 Pneumococcal Conjugate Vacc, 13 Valent (Prevnar) 08/15/2017 Pneumococcal Polysaccharide PPV23 (Pneumovax) 11/07/2019,09/19/2006 Season Influenza, Quad, PF, Adjuvanted, 65+ Yrs, IM (FLUAD) 01/15/2020 Seasonal Influenza Virus Vac cine, Unspecified Formulation 01/28/2019 Seasonal Influenza, PF, 6 M & above, IM , (FluLaval or Fluzone) 01/16/2018,02/14/2017 Seasonal Influenza, Quadriva lent Hd (Fluzone Hd) 02/02/2023,01/03/2022,01/11/2021 Seasonal Influenza, Quadriva lent, No Preserve, IM 02/15/2016,02/12/2015 Seasonal Influenza, Split, I IV3, With Preserve, Inj 12/20/2013,04/04/2012,02/07/2011,02/08,03/05/2009,03/05/2008,03/19/2007 TD, Preservative Free 01/15/2020 TDAP (age 11 and older)(Adacel) 11/18/2009 Varicella Zoster Vaccine (Adult) 12/11/2013 Zoster Vaccine Recombinant (Shingrix) 02/19/2018 ,08/15/2017 documented as of this encounter Social History Tobacco Use Types Packs/Day Years Used Date Smoking Tobacco: Never Smokeless Tobacco: Never Alcohol Use Standard Drinks/Week Comments Yes 0 (1 standard drink = 0.6 oz pur e alcohol) RARE PHQ-2 Answer Date Recorded PHQ-2 Score 0 11/07/2019 Hunger Vital Sign Answer Date Recorded Worried About Running Out of Food in the Last Ye ar Never true 11/07/2019 Ran Out of Food in the Last Year Never true 11/07/2019 Sex and Gender Information Value Date Recorded Sex Assigned at Male 07/27/2018 7:39 AM EDT Gender Identity Male 07/27/2018 7:39 AM EDT Sexual Orientation Straight 07/27/2018 7: 39 AM EDT Job Start Date Occupation Industry Not on file Not on file Not on file documented as of this encounter Miscellaneous Notes * Telephone Encounter - Adela Castaneda LPN - 04/05/2023 11:38 AM EST Patient returned call. States his appts were cancelled. Would like them rescheduled. Scheduling, please assist patient with rescheduling (due for multiple) Thanks! * Telephone Encounter - Adela Castaneda LPN - 04/05/2023 8:12 AM EST AAA - Communication to Patient Patients appts were cancelled. Attempted to call patient. Left message. Adela Castaneda LPN Coordinator STAIR (System to Track Abnormalities of Importance Reliably) [phone] * Telephone Encounter - Adela Castaneda LPN - 06/29/2022 11:37 AM EDT AAA - Clinical Summary Name: Dax Orozco Age: [age] year old AAA Review: Initial Patient Identified by: Problem List Report Imaging Interpretation: CT Type of Result: SP EVAR AAA Care Plan Recommendation: CT - details below Details: Abdomen/Pelvis in 1 year Next steps: No action needed at this time. Patient is already established with vascular surgery. Next clinic visit with testing prior already scheduled for one year with Dr Jha. Patient managed in STAIR Program for Abdominal Aortic Aneurysm - banner added Adela Castaneda LPN Coordinator STAIR (System to Track Abnormalities of Importance Reliably) CT PANCREAS W IV AND W ORAL CONTRAST 04/27/2022 Narrative EXAM EXAM: CT PANCREAS W IV AND W ORAL CONTRAST DATE and TIME: 04/27/2022 10:30 am HISTORY CLINICAL INFORMATION: evaluation for multiple sb ipmns TECHNIQUE Oral Contrast:Oral contrast was not administered. IV Contrast: IV Contrast used Abdomen/Pelvis: with intravenous contrast COMPARISON CT chest dated 03/29/2022, CT pancreas dated 04/11/2013 FINDINGS LOWER CHEST: HEART(visualized): There is a 3.7 x 3.1 cm lower right cardiophrenic angle cyst, 2 Hounsfield units, unchanged since 2013. LUNG BASES: Peripheral subpleural reticulations in the right lower lobe, postinflammatory/inflammatory. ABDOMEN/PELVIS: LIVER/BILE DUCTS: The liver is enlarged measuring 21 cm in craniocaudal. There is diffuse hepatic steatosis. There are several low attenuating lesions, too small to characterize though statistically benign cysts. GALLBLADDER: Unremarkable PANCREAS: The pancreas enhances homogeneously. There is no ductal dilation. There is a 2.2 x 2.0 cm cyst at the distal pancreatic body, 21 Hounsfield units, 1.2 x 1.4 cm on 03/2013. There are additional subcentimeter low attenuating lesions at the proximal body, too small to characterize. SPLEEN: Subcentimeter hypoattenuating foci, too small to characterize though likely benign. ADRENALS: Unremarkable KIDNEYS/URETERS: A 3.9 cm right renal simple cystic lesion. Additional hypoattenuating lesions, toosmall to characterize. A couple sub 4 mm renal calculi. BOWEL: Unremarkable LYMPH NODES: Unremarkable VESSELS: Partly depicted EVAR, difficult to characterize due to streak artifact and out of the field of view on this CT pancreas exam. PERITONEUM/RETROPERITONEUM: Unremarkable ABDOMINAL WALL/SOFT TISSUES: Unremarkable BONES: Unremarkable Impression IMPRESSION 1. A 2.2 cm pancreatic cystic lesion previously 1.4 cm on 03/2013 consistent with very slow growth. Recommend a follow-up in 1 year to document stability. 2. Additional subcentimeter pancreatic cystic lesions, grossly unchanged. 3. Partly visualized EVAR, incompletely characterized. documented in this encounter Plan of Treatment Upcoming Encounters Date Type Department Care Team (Latest Contact Info) Description 05/05/2023 3:30 PM EST Office Visit Cardiology, [facility] [address] [place] [address] Juan Rivas MD [address] [place] [address] 06/29/2023 7:30 AM EDT Hospital Encounter ENDO [facility], Endoscopy Room [facility] [address] [place] [phone] Babak Gavin, DO [address] [place] [address] 06/29/2023 7:30 AM EDT - 06/29/2023 8:00 AM EDT Surgery ENDO [facility], Endoscopy Room [facility] [address] [place] [phone] Babak Gavin, DO [address] [place] [address] COLONOSCOPY FLEXIBLE PROXIMAL DIAGNOSTIC 08/04/2023 7:40 AM EDT Office Visit [address], [place] [id number] Domingo Zhang MD [address] [place] [address] 03/07/2024 8:40 AM EST Office Visit Dermatology, [place] [address] [place] [address] Emily Balderas, CLEMENTINA [address] [place] [address] [place] [address] Scheduled Procedures Name Priority Associated Diagnoses Date/Ti me COLONOSCOPY FLEXIBLE PROXIMAL DIAGNOSTIC History of colon polyps 06/29/2023 7:30 AM EDT Health Maintenance Due Date Last Done Comments Depression Screening 11/06/2020 11/07/2019 COLONOSCOPY-EVERY 3 YRS AGES 18-100 11/21/2021 11/21/2018, 11/21/2018, 08/30/2013, Additional history exists COVID-19 Vaccine ( season) 2022 07/04/2020, 06/12/2020 GFR 08/03/2023 02/02/2023, 06/26, 07/11/2022, Additional history exists Albumin/Creatinine Ratio 02/03/2024 023, 07/24/2018, 10/14/2016 CKD HGB USE SMARTSET 44766 02/03/202402/02, 07/18/2022, 07/11/2022, Additional history exists CKD PHOS USE SMARTSET 54776 02/03/2024 1111/2022, 10/22/2021, 03/04/2019, Additional history exists DTaP,Tdap,and Td Vaccines (3 - Td or Tdap) 01/14/2030 01/15/2020, 11/18/2009 Zoster Vaccines Completed 02/19/2018, 07/26, 12/11/2013 Pneumococcal Vaccine: 65+ Years Completed 11/07/2019, 08/15/2017, 09/19/2006 Influenza Vaccine (FLU shot) Completed 11/2022, 01/03/2022, 01/11/2021, Additional history exists GARDASIL-HPV IMMUNIZATION SERIES Aged Out No longer eligible based on patient's age to complete this topic Hepatitis B Aged Out No longer eligi ble based on patient's age to complete this topic MENINGOCOCCAL (MENACTRA/MENVEO) Aged Out No longer eligible based on patient's age to complete this topic documented as of this encounter Medical Devices Implanted Type Area Ethyl Blender Device Identifier Shelf Expiration Date Model / Serial / Lot Jaxon Liquid Embolization Implanted:Qty: 1 on 04/15/2014 by Sahil Amos MD at [place] [facility] [place] [facility] [place] - Non Human Left: Aorta 10/13/2016 / [id number] / [id number]-35 Implanted:Qty: 1 on 08/14/2012 at [place] [facility] [place] [facility] [place] / VORTX-35 / [id number] documented as of this encounter Advance Directives Latest Code Status on File Code Status Date Activated Date Inactivated Comments Full Code 05/07/2009 2:02 PM 05/08/2009 12:29 AM This order reflects the patients wishes and were consensually agreed upon. Question Answer Comments Discussion of Advance Directives occurred with: Patient Does the patient have a Living Will? No Does the patient have Health Care Power of Commanding Officer Garage? No Care Teams Trucking Manager Relationship Specialty Start Date End Date Domingo Zhang MD [address] [place] [address] PCP - General 06/13/1997 documented as of this encounter
--- OUTSIDE RECORDS SUMMARY | 2023-04-08 02:57 | External Medical Summary | Summary of Care ---
Author Name Unknown Organization [facility] Address [address] [place] [address] Phone [phone] Care Team Providers Care Char Conveyor Tender Cellar Name Role Phone Domingo Zhang MD Primary Care Provider [phone] Reason for Visit * Reason Onset Date Comments STAIR AAA 06/29/2022 Encounter Details Date Type Department Care Team (Late st Contact Info) Description 06/29/2022 Telephone STAIR AAA [address] [place], [place] [id number] Program, Stair [address] [place] [address] STAIR AAA Allergies No known active allergiesdocumented as of this encounter (statuses as of 04/07/2023) Medications Medication Sig Dispensed Refills Start Date [...] as of this encounter (statuses as of 04/07/2023) Active Problems Problem Noted Date Diagnosed Date [...] as of this encounter (statuses as of 04/07/2023) Resolved Problems Problem Noted Date Diagnosed Date [...] Markers for Patients with Cardiovascular Disease Project #[id number] PI: Claudia Quiroga MD Please call [phone] with study related questions GENOMICS CARDIO RESEARCH OTHER*[id number] 05/07/2009 05/03/2016 Overview: Renamed Per Clinical Trials Billing Project. Study Titile: Genomic Markers for Patients with Cardiovascular Disease Project #[id number] PI: Claudia Quiroga MD Please call [phone] with study related questions Dyslipidemia, goal to be determined 03/09/2004 03/05/2009 Overview: Per Lipid Taxonomy. Abdominal aortic aneurysm 03/03/2004 Overview: Modified per AAA Repaired Protocol #13. documented as of this encounter (statuses as of 04/07/2023) Immunizations Name Administration Dates Next Due COVID-19 [...] encounter Miscellaneous Notes * Telephone Encounter - Isiah Cavazos OSA - 04/07/2023 4:30 PM EST Lmam to r/s studies and return Dr Jha Will make one more attempt 04/11/23 LAMIN Aponte * Telephone Encounter - Isiah Cavazos OSA - 04/05/2023 4:12 PM EST Lmam to r/s pt appts for studies and f/u LAMIN Aponte * Telephone Encounter - Adela Castandea LPN - 04/05/2023 11:38 AM EST Patient returned call. States his appts were cancelled. Would like them rescheduled. Scheduling, please assist patient with rescheduling (due for multiple) Thanks! * Telephone Encounter - Adela Castaneda LPN - 04/05/2023 8:12 AM EST AAA - Communication to Patient Patients appts were cancelled. Attempted to call patient. Left message. Adela Castaneda LPN Coordinator OTONIEL (System to Track Abnormalities of Importance Reliably) [phone] * Telephone Encounter - Adela Castaneda LPN [...] - banner added Adela Castaneda LPN Coordinator STAHUNTER (System to Track Abnormalities of Importance Reliably) [...] 05/05/2023 3:30 PM EST Office Visit Cardiology, [facility] [address] [place] [address] Juan Rivas MD [address] [place] [address] 06/29/2023 7:30 AM EDT Hospital Encounter ENDO [facility], Endoscopy Room [facility] [address] [place] [phone] Babak Gavin, [address] [place] [address] 06/29/2023 7:30 AM EDT - 06/29/2023 8:00 AM EDT Surgery ENDO [facility], Endoscopy Room [facility] [address] [place] [phone] Babak Gavin DO [address] [place] [address] COLONOSCOPY FLEXIBLE PROXIMAL DIAGNOSTIC 08/04/2023 7:40 AM EDT Office Visit [facility] [address] [facility], [place] [phone] Domingo Zhang MD [address] [place] [address] 03/07/2024 8:40 AM EST Office Visit [facility] [address] [place] [address] Emily Balderas, PAAnaya [address] [place] [address] [place] [address] Scheduled Procedures Name Priority Associated Diagnoses Date/Ti [...] 023, 07/24/2018, 10/14/2016 CKD HGB USE SMARTSET 75341 02/03/202402/02, 07/18/2022, 07/11/2022, Additional history exists CKD PHOS USE SMARTSET 75646 02/03/2024 11/0 11/2022, 10/22/2021, 03/04/2019, Additional history exists DTaP,Tdap,and Td [...] this encounter Medical Devices Implanted Type Area Special Warfare Combatant Crewman Device Identifier Shelf Expiration Date Model / Serial / Lot Jaxon Liquid Embolization Implanted:Qty: 1 on 04/15/2014 by Sahil Amos MD at [place] [facility] [place] - Non Human Left: Aorta 10/13/2016 / [id number] / [id number] Vortx-35 Implanted:Qty: 1 on 08/14/2012 at [facility] / VORTX-35 / [id number] documented as of this encounter Advance Directives [...] the patient have Health Care Power of Utility Sales And Service Manager? No Care Teams Char Conveyor Tender Cellar Relationship Specialty Start Date End Date Domingo Zhang MD [address] [place] [address] PCP - General 06/13/1997 documented as of this encounter
--- OUTSIDE RECORDS SUMMARY | 2023-04-08 02:57 | External Medical Summary | Summary of Care ---
Author Name Unknown Organization [facility] Address [address] [place] [address] Phone [phone] Care Team Providers Care Vine Fruit Farming Supervisor Name Role Phone Domingo Zhang MD Primary Care Provider [phone] Reason for Visit * Reason Onset Date Comments STAIR AAA 06/29/2022 Encounter Details Date Type Department Care Team (Late st Contact Info) Description 06/29/2022 Telephone STAIR AAA [address] [place], [place] [phone] Program, Stair [address] [place] [address] STAIR AAA Allergies No known active allergiesdocumented [...] Markers for Patients with Cardiovascular Disease Project #[id number] PI: Claudia Quiroga MD Please call [phone] with study related questions GENOMICS CARDIO RESEARCH OTHER*[id number] 05/07/2009 05/03/2016 Overview: Renamed Per Clinical Trials Billing Project. Study Titile: Genomic Markers for Patients with Cardiovascular Disease Project #[id number] PI: Claudia Quiroga MD Please call [phone] with study related questions Dyslipidemia, goal to [...] LAMIN Aponte * Telephone Encounter - Adela Castaneda LPN [...] patient. Left message. Adela Castaneda LPN Coordinator STAHUNTER (System to Track Abnormalities of Importance Reliably) [phone] * Telephone Encounter - Adela Castaneda LPN [...] 05/05/2023 3:30 PM EST Office Visit Cardiology, [facility] [address] [place] [address] Juan Rivas MD [address] [place] [address] 06/29/2023 7:30 AM EDT Hospital Encounter ENDO [facility], Endoscopy Room [facility] [address] [place] [address] Babak Gavin, DO [address] [place] [address] 06/29/2023 7:30 AM EDT - 06/29/2023 8:00 AM EDT Surgery ENDO [facility], Endoscopy Room [facility] [address] [place] [address] Babak Gavin, [address] [place] [address] COLONOSCOPY FLEXIBLE PROXIMAL DIAGNOSTIC 08/04/2023 7:40 AM EDT Office Visit [facility] [place] [address] [facility], [place] [phone] Domingo Zhang MD [address] [place] [facility] [place] [address] 03/07/2024 8:40 AM EST Office Visit Dermatology, [place] [address] [facility], [place] [address] Emily Balderas PA-C [address] [place] [address] [place] [address] Scheduled Procedures Name Priority Associated Diagnoses Date/Ti me COLONOSCOPY FLEXIBLE PROXIMAL DIAGNOSTIC History of colon polyps 06/29/2023 7:30 AM EDT Health Maintenance Due Date Last Done Comments Depression Screening 11/06/2020 11/07/2019 COLONOSCOPY-EVERY 3 YRS AGES 18-100 11/21/2021 11/21/2018, 11/21/2018, 08/30/2013, Additional history exists COVID-19 Vaccine (2022- season) 2022 07/04/2020, 06/12/2020 GFR 08/03/2023 02/02/2023, 06/26, 07/11/2022, Additional history exists Albumin/Creatinine Ratio 02/03/2024 023, 07/24/2018, 10/14/2016 CKD HGB USE SMARTSET 67558 02/03/202402/02, 07/18/2022, 07/11/2022, Additional history exists CKD PHOS USE SMARTSET 48414 02/03/202411/2022, 10/22/2021, 03/04/2019, Additional history exists DTaP,Tdap,and Td [...] this encounter Medical Devices Implanted Type Area Dental Claims Processor Device Identifier Shelf Expiration Date Model / Serial / Lot [place] Liquid Embolization Implanted:Qty: 1 on 04/15/2014 by Sahil Amos MD at [facility]OLOGY [facility] [place] Tissue - Non Human Left: Aorta 10/13/2016 / [id number] / [id number] Vortx-35 Implanted:Qty: 1 on 08/14/2012 at RAD[facility]OLOGY [facility] [place] / VORTX-35 / [id number] documented as of this encounter Advance Directives [...] the patient have Health Care Power of Director Appointment? No Care Teams Vine Fruit Farming Supervisor Relationship Specialty Start Date End Date Domingo Zhang MD [address] [place] [address] PCP - General 06/13/1997 documented as of this encounter
--- OUTSIDE RECORDS SUMMARY | 2023-04-08 02:58 | External Medical Summary | Summary of Care ---
Author Name Unknown Organization [facility] Address [address] [place] [place] [address] Phone [phone] Care Team Providers Care Flight Dispatcher Name Role Phone Domingo Zhang MD Primary Care Provider [phone] Reason for Visit * Reason Comments Outpatient Testing Encounter Details Date Type Department Care Team (Late st Contact Info) Description 02/02/2023 9:50 AM EST Laboratory Laboratory, [place] [address] [place] [address] [place] [address] [place] [address] [employer] Other*[id number]; Chronic kidney disease, stage 3b (HCC); Prediabetes Allergies No known active allergiesdocumented as of this encounter (statuses as of 02/02/2023) Medications Medication Sig Dispensed Refills Start Date End Date Status VITAMIN C 1000 MG PO TABSIndications:HTN , goal below 140/90 one pill twice a day 100 3 04/13/2006 Active OMEGA 3-6-9 FATTY ACIDS PO CAPS 1000 mg--2 pills 2 times a day 0 Active MAGNESIUM 400 MG PO CAPS Take by mouth 250 mg 2 times a day . 1 Cap 0 03/11/2014 Active Omeprazole 20 MG Oral Capsule Delayed Release (PriLOSEC) Take by mouth 1 Capsule in the morning. 90 Capsule 0 05/11/2021 Active Additional Information Patient not taking.Reported on 03/29/2022 metroNIDAZOLE 1 % External Gel (Metrogel)Indicatio ns:Rosacea Apply topically to affected area 2 times a day . To affected area. 60 g 11 06/10/2021 Active Minoxidil 10 MG Oral Tablet (Loniten) TAKE 1/2 TABLET TWICE DAILY 90 Tablet 3 03/15/2022 Active Irbesartan 150 MG Oral Tablet (Avapro)Indications :HTN, goal below 140/90 Take 1 Tablet by mouth in the morning and 1 Tablet before bedtime. 180 Tablet 3 03/18/2022 Active Timolol Maleate 0.5 % Ophthalmic Solution (Timoptic) INSTILL 1 DROP INTO LEFT EYE 2 TIMES DAILY. 0 01/28/2022 Active Rosuvastatin Calcium 40 MG Oral Tablet (Crestor)Indication s:Dyslipidemia, goal to be determined TAKE 1 TABLET EVERY DAY 90 Tablet 3 03/31/2022 Active Amoxicillin 500 MG Oral Capsule (Amoxil) 4 capsule 1 hour prior to procedure 4 Capsule 1 04/11/2022 Active guaiFENesin ER 600 MG Oral Tablet Extended Release 12 Hour (Humibid LA)Indications:COVI D-19 virus infection Take 1 Tablet by mouth 2 times a day as needed for Congestion. 20 Tablet 0 05/24/2022 Active Aspirin 325 MG Oral Tablet Delayed Release Take 1 Tablet by mouth in the morning. 0 Active carBAMazepine ER 200 MG Oral Capsule Extended Release 12 Hour (Carbatrol) TAKE 1 CAPSULE TWICE DAILY 180 Capsule 1 07/18/2022 Active Potassium Chloride Shantelle ER 10 MEQ Oral Tablet Extended Release TAKE 1 TABLET TWICE DAILY 180 Tablet 1 07/18/2022 Active Clindamycin Phosphate 1 % External LotionIndications:P rurigo nodularis,Folliculi tis APPLY TOPICALLY TO NEW AND RESOLVING AREAS ON NECK AND GARCÍA TWICE DAILY. ALSO APPLY TO SKIN DIRECTLY AFTER SHAVING 60 mL 2 07/25/2022 Active traZODone HCl 50 MG Oral Tablet (Desyrel)Indication s:Insomnia, unspecified type Take 1 Tablet by mouth at bedtime. May increase to 2 tabs after 1 month. 90 Tablet 11 07/28/2022 Active Metoprolol Succinate ER 50 MG Oral Tablet Extended Release 24 Hour (toPROL XL)Indications:HTN, goal below 140/90 TAKE 1/2 TABLET EVERY DAY 45 Tablet 3 08/08/2022 Active Allopurinol 100 MG Oral Tablet (Zyloprim)Indicatio ns:Calculus of kidney TAKE 1 TABLET EVERY DAY 90 Tablet 3 09/07/2022 Active traZODone HCl 100 MG Oral Tablet (Desyrel)Indication s:Insomnia, unspecified type Take 1 Tablet by mouth at bedtime. 90 Tablet 3 09/09/2022 Active cloNIDine HCl 0.1 MG Oral Tablet (Catapres) TAKE 1 TABLET IN THE MORNING, TAKE 1 TABLET AT NOON AND TAKE 1 TABLET AT BEDTIME 270 Tablet 3 09/14/2022 Active Doxycycline Hyclate 20 MG Oral Tablet TAKE 1 TABLET TWICE DAILY WITH OR WITHOUT FOOD 180 Tablet 0 09/19/2022 Active Ezetimibe 10 MG Oral Tablet (Zetia)Indications: Dyslipidemia, goal LDL below 100 TAKE 1 TABLET EVERY DAY 90 Tablet 3 10/10/2022 Active Fenofibrate 200 MG Oral CapsuleIndications: High triglycerides TAKE 1 CAPSULE EVERY DAY WITH A MEAL 90 Capsule 1 12/01/2022 Active Indapamide 2.5 MG Oral Tablet (Lozol) TAKE 2 TABLETS EVERY DAY 180 Tablet 1 12/12/2022 Active Felodipine ER 5 MG Oral Tablet Extended Release 24 Hour (Plendil) TAKE 1 TABLET EVERY DAY 90 Tablet 1 12/12/2022 Active Spironolactone 25 MG Oral Tablet (Aldactone)Indicati ons:HTN, goal below 140/90 TAKE 1 TABLET EVERY DAY 90 Tablet 3 12/23/2022 Active HYDROcodone-Acetami nophen 5-325 MG Oral TabletIndications:C hronic pain of right knee,Lumbar herniated disc Take 1-2 Tablets by mouth every 8 hours as needed for Pain, Mild. 100 Tablet 0 01/23/2023 Active documented as of this encounter (statuses as of 02/02/2023) Active Problems Problem Noted Date Diagnosed Date [...] as of this encounter (statuses as of 02/02/2023) Resolved Problems Problem Noted Date Diagnosed Date [...] Markers for Patients with Cardiovascular Disease Project #[id number] PI: Claudia Quiroga MD Please call [phone] with study related questions GENOMICS CARDIO RESEARCH OTHER*[id number] 05/07/2009 05/03/2016 Overview: Renamed Per Clinical Trials Billing Project. Study Titile: Genomic Markers for Patients with Cardiovascular Disease Project #[id number] PI: Claudia Quiroga MD Please call [phone] with study related questions Dyslipidemia, goal to be determined 03/09/2004 03/05/2009 Overview: Per Lipid Taxonomy. Abdominal aortic aneurysm 03/03/2004 Overview: Modified per AAA Repaired Protocol #13. documented as of this encounter (statuses as of 02/02/2023) Immunizations Name Administration Dates Next Due COVID-19 mRNA, LNP-s, No Pre serve, 2-Dose Series (Pfizer) 07/04/2020,06/12/2020 PPD 02/08/2010 Pneumococcal Conjugate Vacc, 13 Valent (Prevnar) 08/15/2017 Pneumococcal Polysaccharide PPV23 (Pneumovax) 11/07/2019,09/19/2006 SEASONAL INFLUENZA, PF, 6 M & Above, IM , (FLULAVAL or FLUZONE) 01/16/2018,02/14/2017 Season Influenza, Quad, PF, Adjuvanted, 65+ Yrs, IM (FLUAD) 01/15/2020 Seasonal Influenza Virus Vac cine, Unspecified Formulation 01/28/2019 Seasonal Influenza, Quadriva lent Hd (Fluzone Hd) [...] on file documented as of this encounter Plan of Treatment Upcoming Encounters Date Type Department Care Team (Latest Contact Info) Description 02/15/2023 1:00 PM EST Office Visit Nephrology, [facility] [place] [address] [place] [address] ZemaShakila bear PA-C [address] [place] [address] 04/20/2023 8:30 AM EST Appointment Radiology, [address] [phone] 04/20/2023 9:00 AM EST Appointment Vascular Lab [facility] [place] [address] [place] [address] 04/20/2023 9:30 AM EST Office Visit Vascular Surg [facility] [place] [address] [place] [address] Rico Jha MD [address] [place] [address] 05/05/2023 3:30 PM EST Office Visit Cardiology, [facility] [address] [facility] [place] [address] Juan Rivas MD [address] [place], [place] [address] 06/29/2023 7:30 AM EDT Hospital Encounter ENDO [facility], Endoscopy Room [facility] [address] [place], [place] [id number] Babak Gavin, DO [address] [place], [place] [address] 06/29/2023 7:30 AM EDT - 06/29/2023 8:00 AM EDT Surgery ENDO [facility], Endoscopy Room [facility] [address] [place] [id number] Babak Gavin, DO [address] [place] [address] COLONOSCOPY FLEXIBLE PROXIMAL DIAGNOSTIC 08/04/2023 7:40 AM EDT Office Visit [place] [address] [facility], [place] [id number] Domingo Zhang MD [address] [place] [address] 03/07/2024 8:40 AM EST Office Visit [place] [address] [facility] [place] [address] Emily Balderas PA-C [address] [place] [address] [place] [address] Pending Results Name Type Priority Associated Diagnoses Date /Time MYCODE SUBSEQUENT ADULT Lab Routine [employer] Other*[id number] 02/02/2023 9:43 AM EST RENAL FUNCTION PANEL Lab Routine Chronic kidney disease, stage 3b (HCC) 02/02/2023 9:43 AM EST HGB Lab Routine Chronic kidney disease, stage 3b (HCC) 02/02/2023 9:43 AM EST 25-HYDROXY VITAMIN D Lab Routine Chronic kidney disease, stage 3b (HCC) 02/02/2023 9:43 AM EST HEMOGLOBIN A1C Lab Routine Prediabetes 02/02/2023 9:43 AM EST ALBUMIN / CREATININE RATIO, URINE Lab Routine Chronic kidney disease, stage 3b (HCC) 02/02/2023 9:43 AM EST MYCODE SST1 Lab Routine [employer] Other*[id number] 02/02/2023 9:43 AM EST MYCODE SST2 Lab Routine [employer] Other*[id number] 02/02/2023 9:43 AM EST Scheduled Procedures Name Priority Associated Diagnoses Date/Ti me COLONOSCOPY FLEXIBLE PROXIMAL DIAGNOSTIC History of colon polyps 06/29/2023 7:30 AM EDT Health Maintenance Due Date Last Done Comments Albumin/Creatinine Ratio 07/25/2019 07/24/2018, 09/25 Depression Screening 11/06/2020 11/07/2019 COLONOSCOPY-EVERY 3 YRS AGES 18-100 11/21/2021 11/21/2018, 11/21/2018, 08/30/2013, Additional history exists CKD PHOS USE SMARTSET 57575 10/22/202209/25, 03/04/2019, 07/24/2018, Additional history exists COVID-19 Vaccine ( - 2022- season) 2022 07/04/2020, 06/12/2020 GFR 01/17/2023 07/18/2022, 06/25, 04/21/2022, Additional history exists CKD HGB USE SMARTSET 45517 07/19/202307/18, 07/11/2022, 07/11/2022, Additional history exists DTaP,Tdap,and Td Vaccines (3 [...] this encounter Medical Devices Implanted Type Area Instructor Adjunct Pharmacy Technician Device Identifier Shelf Expiration Date Model / Serial / Lot Jaxon Liquid Embolization Implanted:Qty: 1 on 04/15/2014 by Sahil Amos MD at [facility] [place] Tissue - Non Human Left: Aorta 10/13/2016 / [id number] / [id number] Vortx-35 Implanted:Qty: 1 on 08/14/2012 at RADIOLOGY [facility] [place] / VORTX-35 / [id number] documented as of this encounter Visit Diagnoses Diagnosis [employer] Other*[id number] Chronic kidney disease, stage 3b (HCC) Prediabetes Other abnormal glucose History of colon polyps Personal history of colonic polyps documented in this encounter Advance Directives Latest Code Status on File Code Status Date Activated Date Inactivated Comments Full Code 05/07/2009 2:02 PM 05/08/2009 12:29 AM This order reflects the patients wishes and were consensually agreed upon. Question Answer Comments Discussion of Advance Directives occurred with: Patient Does the patient have a Living Will? No Does the patient have Health Care Power of Hvac Instructor? No Care Teams Flight Dispatcher Relationship Specialty Start Date End Date Domingo Zhang MD [address] [place] [address] PCP - General 06/13/1997 documented as of this encounter
--- OUTSIDE RECORDS SUMMARY | 2023-04-08 02:58 | External Medical Summary ---
Author Name Unknown Address Unknown Organization [id number][place] [place] [address] [facility] [place]. [facility] [address] Laboratory Report Ordering Provider Test Date Status GABRIELMINDAMARCUS 02/02/2023 09:43:56 Final Observation Date Value Abnormality Reference (Units ) Status HbA1C 02/02/2023 09:43:56 6.4 Above high normal 4. 0-5.6 (%) Final The use of HbA1c to monitor glycemic status is based on normal hemoglobin and HbA composition. This test should not be used in patients with abnormal hemoglobin that affects the half life of the red blood cell or the in vivo glycation rates. Glucose, estimated average 02/02/2023 09:43:56 137 Above high normal <126 (mg/dL) Orlin stock Performing Location [facility] [place] [address] [facility] [address]
--- OUTSIDE RECORDS SUMMARY | 2023-04-08 02:58 | External Medical Summary ---
Author Name Unknown Address Unknown Organization K01[place] [place] [address] [place] [address] Laboratory Report Ordering Provider Test Date Status KALE RIOS 02/02/2023 09:43:56 Final Observation Date Value Abnormality Reference (Units ) Status Hemoglobin 02/02/2023 09:43:56 13.3 Below low normal 14 .0-16.8 (g/dL) Final Performing Location LAB[facility]ATORY [facility] - [address] [place] [address]
--- OUTSIDE RECORDS SUMMARY | 2023-04-08 02:58 | External Medical Summary ---
Author Name Unknown Address Unknown Organization K01:[facility] - [address] [place] [address] Laboratory Report Ordering Provider Test Date Status KALE RIOS 02/02/2023 09:43:56 Final Observation Date Value Abnormality Reference (Units ) Status BUN 02/02/2023 09:43:56 32 Above high normal 6-20 (mg/dL) Final Creatinine 02/02/2023 09:43:56 1.6 Above high normal 0.6-1.2 (mg/dL) Final Glomerular filtration rate/1.73 sq M.predicted [Volume Rate/Area] in Serum, Plasma or Blood by Creatinine-based formula (CKD-EPI) 02/02/2023 09:43:56 45 Below low normal >=60 (mL/min) Final eGFR is calculated based on the CKD-EPI 2020 equation SODIUM 02/02/2023 09:43:56 144 135-146 (m mol/L) Final Potassium 02/02/2023 09:43:56 4.6 3.5-5.1 (m mol/L) Final Cl 02/02/2023 09:43:56 104 98-107 (mm ol/L) Final CO2 02/02/2023 09:43:56 28 22-32 (mmo l/L) Final Anion gap 02/02/2023 09:43:56 12 7-15 (mmol /L) Final Glucose 02/02/2023 09:43:56 135 Above high normal 70 -120 (mg/dL) Final Calcium 02/02/2023 09:43:56 10.3 Above high normal 8. 4-10.2 (mg/dL) Final Albumin 02/02/2023 09:43:56 4.9 3.8-5.0 (g /dL) Final Phosphate 02/02/2023 09:43:56 3.3 2.5-4.8 (m g/dL) Final Performing Location [facility]ORY [facility] - [address] [place] [place] [address]
--- OUTSIDE RECORDS SUMMARY | 2023-04-08 02:58 | External Medical Summary | Summary of Care ---
Author Name Unknown Organization [facility] Address [address] [facility] [place] [address] Phone [phone] Care Team Providers Care Tracer Bullet Section Supervisor Name Role Phone Gabriel Zhang MD Primary Care Provider Reason for Visit * Reason Onset Date Comments Medication Refill 01/20/2023 Encounter Details Date Type Department Care Team (Late st Contact Info) Description 01/20/2023 Refill [facility] [address] [place] [address] Gabriel Zhang MD [address] [place] [address] Chronic pain of right knee; Lumbar herniated disc Allergies No known active allergiesdocumented as of this encounter (statuses as of 01/23/2023) Medications Medication Sig Dispensed Refills Start Date End Date Status VITAMIN C 1000 MG PO TABSIndications:HT N, goal below 140/90 one pill twice a [...] on 03/29/2022 metroNIDAZOLE 1 % External Gel (Metrogel)Indicati ons:Rosacea Apply topically to affected area 2 times a day . To affected area. 60 g 11 06/10/2021 Active Minoxidil 10 MG Oral Tablet (Loniten) TAKE 1/2 TABLET TWICE DAILY 90 Tablet 3 03/15/2022 Active Irbesartan 150 MG Oral Tablet (Avapro)Indication s:HTN, goal below 140/90 Take 1 Tablet by mouth in the morning and 1 Tablet before bedtime. 180 Tablet 3 03/18/2022 Active Timolol Maleate 0.5 % Ophthalmic Solution (Timoptic) INSTILL 1 DROP INTO LEFT EYE 2 TIMES DAILY. 0 01/28/2022 Active Rosuvastatin Calcium 40 MG Oral Tablet (Crestor)Indicatio ns:Dyslipidemia, goal to be determined TAKE 1 TABLET EVERY DAY 90 Tablet 3 03/31/2022 Active Amoxicillin 500 MG Oral Capsule (Amoxil) 4 capsule 1 hour prior to procedure 4 Capsule 1 04/11/2022 Active guaiFENesin ER 600 MG Oral Tablet Extended Release 12 Hour (Humibid LA)Indications:COV ID-19 virus infection Take 1 Tablet by mouth [...] 07/18/2022 Active Clindamycin Phosphate 1 % External LotionIndications: Prurigo nodularis,Follicul itis APPLY TOPICALLY TO NEW AND RESOLVING AREAS ON NECK AND GARCÍA TWICE DAILY. ALSO APPLY TO SKIN DIRECTLY AFTER SHAVING 60 mL 2 07/25/2022 Active traZODone HCl 50 MG Oral Tablet (Desyrel)Indicatio ns:Insomnia, unspecified type Take 1 Tablet by mouth at bedtime. May increase to 2 tabs after 1 month. 90 Tablet 11 07/28/2022 Active Metoprolol Succinate ER 50 MG Oral Tablet Extended Release 24 Hour (toPROL XL)Indications:HTN , goal below 140/90 TAKE 1/2 TABLET EVERY DAY 45 Tablet 3 08/08/2022 Active Allopurinol 100 MG Oral Tablet (Zyloprim)Indicati ons:Calculus of kidney TAKE 1 TABLET EVERY DAY 90 Tablet 3 09/07/2022 Active traZODone HCl 100 MG Oral Tablet (Desyrel)Indicatio ns:Insomnia, unspecified type Take 1 Tablet by mouth [...] 09/19/2022 Active Ezetimibe 10 MG Oral Tablet (Zetia)Indications :Dyslipidemia, goal LDL below 100 TAKE 1 TABLET EVERY DAY 90 Tablet 3 10/10/2022 Active Fenofibrate 200 MG Oral CapsuleIndications :High triglycerides TAKE 1 CAPSULE EVERY DAY WITH A MEAL 90 Capsule 1 12/01/2022 Active Indapamide 2.5 MG Oral Tablet (Lozol) TAKE 2 TABLETS EVERY DAY 180 Tablet 1 12/12/2022 Active Felodipine ER 5 MG Oral Tablet Extended Release 24 Hour (Plendil) TAKE 1 TABLET EVERY DAY 90 Tablet 1 12/12/2022 Active Spironolactone 25 MG Oral Tablet (Aldactone)Indicat ions:HTN, goal below 140/90 TAKE 1 TABLET EVERY DAY 90 Tablet 3 12/23/2022 Active HYDROcodone-Acetam inophen 5-325 MG Oral TabletIndications: Chronic pain of right knee,Lumbar herniated disc Take 1-2 Tablets by mouth every 8 hours as needed for Pain, Mild. 100 Tablet 0 01/23/2023 Active HYDROcodone-Acetam inophen 5-325 MG Oral TabletIndications: Chronic pain of right knee,Lumbar herniated disc Take 1-2 Tablets by mouth every 8 hours as needed for Pain, Mild. 100 Tablet 0 07/20/2022 3 Discontinu ed(Refill) documented as of this encounter (statuses as of 01/23/2023) Active Problems Problem Noted Date Diagnosed Date [...] as of this encounter (statuses as of 01/23/2023) Resolved Problems Problem Noted Date Diagnosed Date [...] Markers for Patients with Cardiovascular Disease Project #[id number] PI: Claudia Quiroga MD Please call [phone] with study related questions GENOMICS CARDIO RESEARCH OTHER*[id number] 05/07/2009 05/03/2016 Overview: Renamed Per Clinical Trials Billing Project. Study Titile: Genomic Markers for Patients with Cardiovascular Disease Project #[id number] PI: Claudia Quiroga MD Please call [phone] with study related questions Dyslipidemia, goal to be determined 03/09/2004 03/05/2009 Overview: Per Lipid Taxonomy. Abdominal aortic aneurysm 03/03/2004 Overview: Modified per [facility] Repaired Protocol #13. documented as of this encounter (statuses as of 01/23/2023) Immunizations Name Administration Dates Next Due COVID-19 mRNA, LNP-s, No Pre serve, 2-Dose Series ([employer]) 07/04/2020,06/12/2020 PPD 02/08/2010 Pneumococcal Conjugate Vacc, 13 Valent (Prevnar) 08/15/2017 Pneumococcal Polysaccharide PPV23 (Pneumovax) 11/07/2019,09/19/2006 SEASONAL INFLUENZA, PF, 6 M & Above, IM , (FLULAVAL or FLUZONE) 01/16/2018,02/14/2017 Season Influenza, Quad, PF, Adjuvanted, 65+ Yrs, IM (FLUAD) 01/15/2020 Seasonal Influenza Virus Vac cine, Unspecified Formulation 01/28/2019 Seasonal Influenza, Quadriva lent Hd (Fluzone Hd) 01/03/2022,01/11/2021 Seasonal Influenza, Quadriva lent, No Preserve, IM [...] = 0.6 oz pur e alcohol) RARE Sex and Gender Information Value Date Recorded Sex Assigned at Male 07/27/2018 7:39 AM EDT Gender Identity Male 07/27/2018 7:39 AM EDT Sexual Orientation Straight 07/27/2018 7: 39 AM EDT Job Start Date Occupation Industry Not on file Not on file Not on file documented as of this encounter Miscellaneous Notes * Telephone Encounter - Gabriel Zhang MD - 01/23/2023 4:59 PM EDTSigned Prescriptions: Disp Refills HYDROcodone-Acetaminophen 5-325 MG Oral Ta*100 Ta*0 Sig: Take 1-2 Tablets by mouth every 8 hours as needed for Pain, Mild. Authorizing Provider: GABRIEL ZHANG * Telephone Encounter - Alpa Weir [facility] - 01/21/2023 8:50 AM EDTPending Prescriptions: Disp Refills HYDROcodone-Acetaminophen 5-325 MG Oral Ta*100 Ta*0 Sig: Take 1-2 Tablets by mouth every 8 hours as needed for Pain, Mild. * Telephone Encounter - Alpa Weir [facility] - 01/21/2023 8:48 AM EDT I have reviewed the patients controlled substance dispensing history in the Prescription Drug Monitoring Program in compliance with the [facility] regulations before prescribing a controlled substance. PDMP checked on 01/21/2023. Pending Prescriptions: Disp Refills HYDROcodone-Acetaminophen 5-325 MG Oral T*100 Ta*0 Sig: Take 1-2 Tablets by mouth every 8 hours as needed for Pain, Mild. Last Visit: 07/28/2022 (in office), Visit date not found (telemedicine) Next Visit: 02/02/2023 Date medication was last filled: 07/20/22 Date medication is due for refill: 08/06/22 Pharmacy: [id number] Is this request for a controlled substance? Yes and Urine Drug Screen Not completed Toxicology results: No results found. However, due to the size of the patient record, not all encounters were searched.Please check Results Review for a complete set of results. Please approve if appropriate. Thank You, Alpa Weir [facility] Clinical Pharmacist Centralized Clinical Pharmacy Services (CCPS) (formerly Telepharmacy) [phone] 01/21/2023, 8:49 AM documented in this encounter Plan of Treatment Upcoming Encounters Date Type Department Care Team (Late st Contact Info) Description 02/02/2023 8:20 AM EST Office Visit [facility] [address] [place] [address] Gabriel Zhang MD [address] [facility] [place] [id number] 02/15/2023 1:00 PM EST Office Visit [facility]phrology, [facility] [address], [place] [id number] ZemaShakila bear PA-C [address] [place] [address] 04/20/2023 8:30 AM EST Appointment Radiology, [place] [address] [place] [address] 04/20/2023 9:00 AM EST Appointment Vascular Lab [facility], [place] [address] [place] [address] 04/20/2023 9:30 AM EST Office Visit Vascular Surg [facility], [place] [address] [place] [address] Rico Jha MD [address] [place] [address] 05/05/2023 3:30 PM EST Office Visit Cardiology, [facility] [address] [place] [address] Juan Rivas MD [address] [facility] [place] [address] 03/07/2024 8:40 AM EST Office Visit Dermatology[address] [address] Emily Balderas PA-C [address] [place] [address] [place] [address] Scheduled Procedures Name Priority Associated Diagnoses Date/Ti me COLONOSCOPY FLEXIBLE PROXIMAL DIAGNOSTIC Recall History of colon polyps Health Maintenance Due Date Last Done Comments Albumin/Creatinine Ratio 07/25/2019 07/24/2018, 09/25 Depression Screening 11/06/2020 11/07/2019 COLONOSCOPY-EVERY 3 YRS AGES 18-100 11/21/2021 11/21/2018, 11/21/2018, 08/30/2013, Additional history exists CKD PHOS USE SMARTSET 98652 10/22/202209/25, 03/04/2019, 07/24/2018, Additional history exists COVID-19 Vaccine ( season) 2022 07/04/2020, 06/12/2020 Influenza Vaccine (FLU shot) (#1) 2022 01/03/2022, 01/11/2021, 01/15/2020, Additional history exists GFR 01/17/2023 07/18/2022, 06/25, 04/21/2022, Additional history exists CKD HGB USE SMARTSET 12024 07/19/202307/18, 07/11/2022, 07/11/2022, Additional history exists DTaP,Tdap,and Td Vaccines (3 - Td or Tdap) 01/14/2030 01/15/2020, 11/18/2009 Zoster Vaccines Completed 02/19/2018, 07/26, 12/11/2013 Pneumococcal Vaccine: 65+ Years Completed 11/07/2019, 08/15/2017, 09/19/2006 GARDASIL-HPV IMMUNIZATION SERIES Aged Out No longer eligible based on patient's age to complete this topic Hepatitis B Aged Out No longer eligi ble based on patient's age to complete this topic MENINGOCOCCAL (MENACTRA/MENVEO) Aged Out No longer eligible based on patient's age to complete this topic documented as of this encounter Medical Devices Implanted Type Area Laundry Manager Device Identifier Shelf Expiration Date Model / Serial / Lot Zuni Liquid Embolization Implanted:Qty: 1 on 04/15/2014 by Sahil Amos MD at [facility] Tissue - Non Human Left: Aorta 10/13/2016 / [id number] / [id number] Vortx-35 Implanted:Qty: 1 on 08/14/2012 at [facility] / VORTX-35 / [id number] documented as of this encounter Visit Diagnoses Diagnosis Chronic pain of right knee Lumbar herniated disc Displacement of lumbar intervertebral disc without myelopathy documented in this encounter Advance Directives Latest Code Status on File Code Status Date Activated Date Inactivated Comments Full Code 05/07/2009 2:02 PM 05/08/2009 12:29 AM This order reflects the patients wishes and were consensually agreed upon. Question Answer Comments Discussion of Advance Directives occurred with: Patient Does the patient have a Living Will? No Does the patient have Health Care Power of Street And Building Decorator? No Care Teams Tracer Bullet Section Supervisor Relationship Specialty Start Date End Date Gabriel Zhang MD [address] [facility] [place] [address] PCP - General 06/13/1997 documented as of this encounter
--- OUTSIDE RECORDS SUMMARY | 2023-04-08 02:58 | External Medical Summary ---
Author Name Unknown Address Unknown Organization K01:LABORATORY [facility] - [address] [place] [address] Laboratory Report Ordering Provider Test Date Status OMER MARIN 02/02/2023 09:43:56 Final Observation Date Value Abnormality Reference (Units ) Status MYCODE SPECIMEN-SST 02/02/2023 09:43:56 Freezing of extracted DNA, whole blood and/or serum. Final Performing Location LABORATORY [facility] - [address] [place] [address]
--- OUTSIDE RECORDS SUMMARY | 2023-04-08 02:58 | External Medical Summary ---
Author Name Unknown Address Unknown Organization K01:[facility]ATORY [facility] - [address] [place] [address] Laboratory Report Ordering Provider Test Date Status OMER MARIN 02/02/2023 09:43:56 Final Observation Date Value Abnormality Reference (Units ) Status MYCODE SPECIMEN-SST 02/02/2023 09:43:56 Freezing of extracted DNA, whole blood and/or serum. Final Performing Location [facility]ORY [facility] - [address] [place] [address]
--- OUTSIDE RECORDS SUMMARY | 2023-04-08 02:58 | External Medical Summary | Summary of Care ---
Author Name Unknown Organization [facility] Address [address] [place] [address] Phone [phone] Care Team Providers Care Purchase Order Checker Name Role Phone Domingo Zhang MD Primary Care Provider [phone] Reason for Visit * Reason Onset Date Comments [facility] 06/29/2022 Encounter Details Date Type Department Care Team (Late st Contact Info) Description 06/29/2022 Telephone [facility] [address] [place], [place] [phone] Program, [facility] [address] [place] [address] [facility] Allergies No known active allergiesdocumented [...] Markers for Patients with Cardiovascular Disease Project #[id number] PI: Claudia Quiroga MD Please call [phone] with study related questions GENOMICS CARDIO RESEARCH OTHER*[id number] 05/07/2009 05/03/2016 Overview: Renamed Per Clinical Trials Billing Project. Study Titile: Genomic Markers for Patients with Cardiovascular Disease Project #[id number] PI: Claudia Quiroga MD Please call [phone] with study related questions Dyslipidemia, goal to [...] (System to Track Abnormalities of Importance Reliably) [phone] * Telephone Encounter - Adela Castaneda LPN [...] 05/05/2023 3:30 PM EST Office Visit Cardiology, [facility] [address] [place] [address] Juan Rivas MD [address] [place] [address] 06/29/2023 7:30 AM EDT Hospital Encounter ENDO [facility], Endoscopy Room [facility] [address] [place] [phone] Babak Gavin, DO [address] [place] [address] 06/29/2023 7:30 AM EDT - 06/29/2023 8:00 AM EDT Surgery ENDO [facility], Endoscopy Room [facility] [address] [place] [phone] Babak Gavin, DO [address] [place] [address] COLONOSCOPY FLEXIBLE PROXIMAL DIAGNOSTIC 08/04/2023 7:40 AM EDT [facility] [place] [address] [facility] [id number] Domingo Zhang MD [address] [facility] [address] 03/07/2024 8:40 AM EST [facility] [address] [facility] [address] Emily Balderas PA-C [address] [place] [address] [place] [address] Scheduled Procedures Name Priority Associated Diagnoses Date/Ti me COLONOSCOPY FLEXIBLE PROXIMAL DIAGNOSTIC History of colon polyps 06/29/2023 7:30 AM EDT Health Maintenance Due Date Last Done Comments Depression Screening 11/06/2020 11/07/2019 COLONOSCOPY-EVERY 3 YRS AGES 18-100 11/21/2021 11/21/2018, 11/21/2018, 08/30/2013, Additional history exists COVID-19 Vaccine ( - 2022- season) 2022 07/04/2020, 06/12/2020 GFR 08/03/2023 02/02/2023, 06/26, 07/11/2022, Additional history exists Albumin/Creatinine Ratio 02/03/2024 023, 07/24/2018, 10/14/2016 CKD HGB USE SMARTSET 18286 02/03/202402/02, 07/18/2022, 07/11/2022, Additional history exists CKD PHOS USE SMARTSET 90934 02/03/2024 11/0 11/2022, 10/22/2021, 03/04/2019, Additional history [...] this encounter Medical Devices Implanted Type Area Clinical Product Manager Device Identifier Shelf Expiration Date Model / Serial / Lot Jaxon Liquid Embolization Implanted:Qty: 1 on 04/15/2014 by Sahil Amos MD at [facility] [place] Tissue - Non Human Left: Aorta 10/13/2016 / [id number] / [id number] Vortx-35 Implanted:Qty: 1 on 08/14/2012 at [facility] [place] / VORTX-35 / [id number] documented as of this encounter Advance Directives [...] the patient have Health Care Power of Officer Lieutenant? No Care Teams Purchase Order Checker Relationship Specialty Start Date End Date Domingo Zhang MD [address] [place] [address] PCP - General 06/13/1997 documented as of this encounter
--- OUTSIDE RECORDS SUMMARY | 2023-04-08 02:58 | External Medical Summary | Summary of Care ---
Author Name Unknown Organization [facility] Address [address] [place] [address] Phone [phone] Care Team Providers Care Asset Protection Manager Name Role Phone Domingo Zhang MD Primary Care Provider [phone] Reason for Referral * Ancillary Services (Within 30 days (routine)) - Authorized Specialty Diagnoses / Procedures Referred By Contac t Referred To Contact Gastroenterology Diagnoses Screen for colon cancer Domingo Zhang MD [address] [place] [address] Referral ID Status Reason Start Date Expiration Date Visits Requested Visits Authorized [id number] Authorized Ancillary Services Required 02/02/2023 999 999 Question Answer Referral Priority Within 30 days (routine) Where should this appointment be scheduled? Alex Comments ALERT: Do not order for pediatric patients (18 years or younger). Cancel off screen and order PEDS GASTROENTEROLOGY CONSULT (Type: 1 visit only-Evaluate and Treat) The following Pt. Instructions are available: - Gastro Colonoscopy Prep Instructions [36009] - Gastro Colonoscopy Prep Instructions (Polish Version) [[id number]] Go to the Pt. Instructions section within the Visit Navigator to access. Colonoscopy ASGE Guidelines: Average risk screening (begin at age 50, 10 year intervals) and Postadenoma resection: 3-10 adenomas or adenoma with villous features, greater than or equal 1 cm, or with high-grade dysplasia (3 yr intervals) ADDITIONAL INFORMATION 1. Is the patient on Coumadin? No 2. Is the patient on Pradaxa? No Reason for Visit * Reason Onset Date Comments Status Check Return in [address] [place] [address] Medication Administration 02/02/2023 Flu an d/or Pneumo Inj Encounter Details Date Type Department Care Team (Late st Contact Info) Description 02/02/2023 8:20 AM EST Office Visit [facility] [address] [place] [address] Domingo Zhang MD [address] [place] [address] Risk and functional assessment*; Chronic kidney disease, stage 3b (HCC); High triglycerides; Dyslipidemia, goal LDL below 100; Gastroesophageal reflux disease without esophagitis; Trigeminal neuralgia; Screen for colon cancer; Prediabetes; Need for prophylactic vaccination and inoculation against influenza Allergies No known active allergiesdocumented as of [...] Markers for Patients with Cardiovascular Disease Project #[id number] PI: Claudia Quiroga MD Please call [phone] with study related questions GENOMICS CARDIO RESEARCH OTHER*[id number] 05/07/2009 05/03/2016 Overview: Renamed Per Clinical Trials Billing Project. Study Titile: Genomic Markers for Patients with Cardiovascular Disease Project #[id number] PI: Claudia Quiroga MD Please call [phone] with study related questions Dyslipidemia, goal to [...] Date Smoking Tobacco: Never Smokeless Tobacco: Never Tobacco Cessation:Counseling Given: Not Answered Alcohol Use Standard Drinks/Week Comments Yes 0 [...] on file documented as of this encounter Last Filed Vital Signs Vital Sign Reading Time Taken Comments Blood Pressure 122/68 02/02/2023 8:27 AM EST Pulse 65 02/02/2023 8:27 AM EST Temperature 36.5 C (97.7 F) 02/02/2023 8:27 AM ES T Respiratory Rate 20 02/02/2023 8:27 AM EST Oxygen Saturation 98% 02/02/2023 8:27 AM EST Inhaled Oxygen Concentration - - Weight 82.6 kg (182 lb 3.2 oz) 02/02/2023 8:27 A M EST Height 177.8 cm (5' 10") 02/02/2023 8:27 AM EST Body Mass Index 26.14 02/02/2023 8:27 AM EST documented in this encounter Patient Instructions * Patient Instructions* Charlotte Gordillo LPN - 02/02/2023 8:27 AM EST Patient Instructions - Fall Prevention (This education is for all patients over 65 regardless of symptoms) Remember to take your current medications as prescribed. In order to prevent falls, you are encouraged to: Exercise Utilize assistive/adaptive devices Avoid multifocal lenses when walking Avoid hazards in home Maintain a regular toileting schedule Any questions please contact our office. Preventing Falls in the Home (This education is for all patients over 65 regardless of symptoms) As you get older, falls are more likely. Thats because your reaction time slows. Your muscles and joints may also get stiffer, making them less flexible. Illness, medications, and vision changes can also affect your balance. A fall could leave you unable to live on your own. To make your home safer, follow these tips: Floors Put nonskid pads under area rugs Remove throw rugs Replace worn floor coverings Tack carpets firmly to each step on carpeted stairs. Put nonskid strips on the edges of uncarpeted stairs Keep floors and stairs free of clutter and cords Arrange furniture so there are clear pathways Clean up any spills right away Bathrooms Install grab bars in the tub or shower Apply nonskid strips or put a nonskid rubber mat in the tub or shower Sit on a bath chair to bathe Use bathmats with nonskid backing Lighting Keep a flashlight in each room Put a nightlight along the pathway between the bedroom and the bathroom [employer] Patient Education Copyright 2008 - 2010 Umair except where otherwise noted Preventing Falls: Exercises to Improve Balance, Flexibility, Strength, and Staying Power (This education is for all patients over 65 regardless of symptoms) Certain types of exercises may help make you less likely to fall. Try the ones below. Or do other exercises that your healthcare provider suggests. Depending on your health, you may need to start slowly. Dont let that stop you. Even small amounts of exercise can help you. Be sure to talk to yourhealthcare provider before starting any exercise program. Improve Balance Many types of exercise can help improve balance. Giacomo chi and yoga are good examples. Heres another one to try. You can do it anytime and almost anywhere. Stand next to a counter or solid support. Push yourself up onto your tiptoes. Hold for 5 seconds. If you start to lose your balance, hold on to the counter. Rest and repeat 5 times. Work up to holding for 20 to 30 seconds, if you can. Increase Flexibility Being more flexible makes it easier for you to move around safely. Try exercises like the seated hamstring stretch. Sit in a chair and put one foot on a stool. Straighten your leg and reach with both hands down either side of your leg. Reach as far down your leg as you can. Hold for about 20 seconds. Go back to the starting position. Then repeat 5 times. Switch legs. Build Strength Resistance exercises help build strength. You can do them without equipment. Or you can use weights, elastic bands, or special machines. One such exercise is called the biceps curl. You can hold a 1 pound weight or even a can of soup. Do this exercise at least 3 times a week. Strive for everyday. Sit up straight in a chair. Keep your elbow close to your body and your wrist straight. Bend your arm, moving your hand up to your shoulder. Then slowly lower your arm. Repeat 5 times. Switch to the other arm. Build Your Staying Power Aerobic exercises make your heart and lungs stronger so you can keep moving longer. Walking and swimming are two of the best types of exercises you can do. Using a stationary bike is great, too. Find an aerobic exercise that you enjoy. Start slowly and build up. Even 5 minutes is helpful. Aimfor a goal of 30 minutes, at least 3 times a week. You dont have to do 30 minutes in one session. Break it up and walk a little throughout the day. More Helpful Tips Start easy. Slowly work up to doing more. Talk with your healthcare provider about the best exercises for you. Call senior centers or health clubs about exercise programs. If needed, have a family member watch you walk every so often to check your stability. Exercise with a friend. Choose an activity you both enjoy. Try exercises that you can do anytime, anywhere. Here are two examples. Have someone with you when you first try these: Practice walking by placing one foot right in front of the other. Stand up and sit down 10 times. Repeat this throughout the day. [employer] Patient Education Copyright 2009 - 2010 Umair except where otherwise noted. Preventing Falls: Moving Safely Using a Cane or Walker (This education is for all patients over 65 regardless of symptoms) Keep the cane away from your feet so you dont trip. A walking aid, such as a cane or walker, can help you stay more independent and avoid falls. Remember to keep your walking aid within easy reach when youre in a chair or in bed. And learn how to use it safely so you dont injure yourself. Using a Cane If you have a stronger side, hold the cane on that side. Get your balance. Move the cane and your weaker leg forward. Support your weight on both the cane and your weaker side. Step with your stronger leg. Start again from step 1. If youre using a folding walker, be sure you know how to lock it open. Check that its locked open before each use. Using a Walker Roll the walker (or lift it, if youre using one without wheels) forward about 12 inches. Step forward with your weaker leg first. Use the walker to help keep your balance. Bring your other foot forward to the center of the walker. Start again from step 1. Helpful Tips Check with your healthcare provider about the right walking aid to use. Ask about a walker with a seat attached. Check the tips of your cane or walker to make sure they have nonskid covers. Move slowly from room to room. Dont hendricks. Sit down to get dressed. Use a boy pack or backpack to keep your hands free. Get help for jobs that mean climbing, even on a stepstool. [employer] Patient Education Copyright 2008 - 2010 Umair except where otherwise noted. Treating Urinary Incontinence in Men (This education is for all patients over 65 regardless of symptoms) You can't always control the release of urine. You may leak urine. Or you may not be able to hold your urine until you can get to a bathroom. This is called urinary incontinence. The problem can be managed. Talk to your doctor about your treatment options. Taking Medications Prescription medications may help you. They may: Help the sphincter to work better. (This is the muscle that closes to keep urine from leaking out of the bladder.) Help stop the bladder from annia too often to push urine out. Help the bladder muscles contract with more force. Help relax the sphincter muscle and allow urine to flow more freely. Making Changes to Your Routine Certain changes in your daily routine may help. These include: Avoiding caffeine and alcohol. Using timed voiding. This is following a schedule for drinking fluids and urinating. Doing Kegel exercises daily. These exercises involve tightening the muscles in your sphincter and around your bladder to help strengthen them. Your doctor can explain how to do them. Using a Catheter A catheter is a narrow tube that is inserted through the urethra into the bladder. It drains urine.A condom catheter covers the penis. It channels urine into a collection bag. It is worn most of thetime. Intermittent catheterization means inserting a catheter to drain the bladder, then removing it. This is done on a regular schedule. Having Surgery If other options don't work, surgery may be recommended. If surgery is an option, your healthcare provider can discuss it with you and explain its risks and benefits. Healing After Prostate Surgery Surgery on the prostate gland can cause incontinence. Most often, the incontinence is only for a short time. It clears up when healing is complete. Very rarely, prostate surgery can result in permanent incontinence. documented in this encounter Progress Notes * Sayra Tejeda LPN - 02/02/2023 9:18 AM EST PRE - ADMINISTRATION DOCUMENTATION Are you experiencing any cold symptoms or fever? No Have you had Guillain-Wellington Syndrome (an illness that causes paralysis) within the last 6 weeks? No Have you had the flu shot in the past? YES Have you ever had a reaction to the flu shot? No Sayra Tejeda LPN, 02/02/2023 9:18 AM Immunization Administration Documentation Time Out Procedure Performed: Yes Patient Identified (Ask Name/Date of ): Yes Does the patient have a fever greater than 101 degrees today? No Patient allergic to latex? No VFC Stock: No Immunization(s) verified: Yes, Immunization Name: Flu, VIS Sheet(s) given: Yes Verified Side and Site: Yes Verified Shot(s) with Parent(s)/Patient: Yes * Domingo Zhang MD - 02/02/2023 8:42 AM EST Subjective: Dax Orozco is a 72 year old male. Chief Complaint Patient presents with Status Check Return in 6 months HPI: 72-year-old seen today as a six-month return visit. Known history of CKD 3, chronic ischemic heart disease, hypertension, trigeminal neuralgia, obstructive sleep apnea on CPAP, gastroesophageal reflux and hypertension. Additionally he is had significant orthopedic issues in in the last year and a half has had both a hip and knee replacement. Not bothered currently with exertional chest pain or shortness of breath. No episodes of Um orthostasis/presyncope. He points out that his blood pressure has been quite good. There was a long time frame where his blood pressure seemed to be consistently elevated in his antihypertensive regimen was Um gradually Um increased but he has been stable now for at least a year or longer. A couple years ago he had developed some increase in glucose with Um hemoglobin A1cs in the pre diabetes and then it least 1 hemoglobin A1c (6.8) indicative of a diabetes. He was never started on anymedication but rather a started pay more attention to diet and was able to Um dropped the hemoglobin A1cs back into the prediabetic range in even into a normal range. Last hemoglobin A1c was more than a year ago. Having some problems with left shoulder. He is had prior surgery on the shoulder. Also has some right lateral hip pain. Neither these are at the point that he feels intervention necessary Continues to deal with paroxysmal nature of trigeminal neuralgia. Typically if he sneezes he will get paroxysm of pain. Occasionally will use an extra dose of Tegretol. Patient Active Problem List Diagnosis Code Trigeminal neuralgia G50.0 HTN, goal below 140/90 I10 Chronic ischemic heart disease I25.9 ADVANCE DIRECTIVE INFORMATION High triglycerides E78.1 Other specified prophylactic or treatment measure [id number] S/P AAA (abdominal aortic aneurysm) repair Z98.890, Z86.79 DYSLIPIDEMIA, GOAL LDL BELOW 100 E78.5 Rosacea L71.9 Obstructive sleep apnea on CPAP G47.33 Endoleak post (EVAR) endovascular aneurysm repair [id number] MEDICATION USE AGREEMENT [id number] Cyst and pseudocyst of pancreas K86.2, K86.3 Vitamin D insufficiency E55.9 SBE (subacute bacterial endocarditis) prophylaxis candidate Z29.89 Erectile dysfunction N52.9 Hypokalemia E87.6 Gastroesophageal reflux disease without esophagitis K21.9 Benign hypertension with stage 3b chronic kidney disease (HCC) I12.9, N18.32 Chronic kidney disease, stage 3b (HCC) N18.32 H/O dysplastic nevus Z86.018 Current Outpatient Medications Medication Sig Dispense Refill VITAMIN C 1000 MG PO TABS one pill twice a day 100 3 OMEGA 3-6-9 FATTY ACIDS PO CAPS 1000 mg--2 pills 2 times a day MAGNESIUM 400 MG PO CAPS Take by mouth 250 mg 2 times a day . 1 Cap 0 Omeprazole 20 MG Oral Capsule Delayed Release (PriLOSEC) Take by mouth 1 Capsule in the morning. (Patient not taking: Reported on 01/25/2022) 90 Capsule 0 metroNIDAZOLE 1 % External Gel (Metrogel) Apply topically to affected area 2 times a day . To affected area. 60 g 11 Minoxidil 10 MG Oral Tablet (Loniten) TAKE 1/2 TABLET TWICE DAILY 90 Tablet 3 Irbesartan 150 MG Oral Tablet (Avapro) Take 1 Tablet by mouth in the morning and 1 Tablet before bedtime. 180 Tablet 3 Timolol Maleate 0.5 % Ophthalmic Solution (Timoptic) INSTILL 1 DROP INTO LEFT EYE 2 TIMES DAILY. Rosuvastatin Calcium 40 MG Oral Tablet (Crestor) TAKE 1 TABLET EVERY DAY 90 Tablet 3 Amoxicillin 500 MG Oral Capsule (Amoxil) 4 capsule 1 hour prior to procedure 4 Capsule 1 guaiFENesin ER 600 MG Oral Tablet Extended Release 12 Hour (Humibid LA) Take 1 Tablet by mouth 2 times a day as needed for Congestion. 20 Tablet 0 Aspirin 325 MG Oral Tablet Delayed Release Take 1 Tablet by mouth in the morning. carBAMazepine ER 200 MG Oral Capsule Extended Release 12 Hour (Carbatrol) TAKE 1 CAPSULE TWICE DAILY 180 Capsule 1 Potassium Chloride Shantelle ER 10 MEQ Oral Tablet Extended Release TAKE 1 TABLET TWICE DAILY 180 Tablet1 Clindamycin Phosphate 1 % External Lotion APPLY TOPICALLY TO NEW AND RESOLVING AREAS ON NECK AND GARCÍA TWICE DAILY. ALSO APPLY TO SKIN DIRECTLY AFTER SHAVING 60 mL 2 traZODone HCl 50 MG Oral Tablet (Desyrel) Take 1 Tablet by mouth at bedtime. May increase to 2 tabsafter 1 month. 90 Tablet 11 Metoprolol Succinate ER 50 MG Oral Tablet Extended Release 24 Hour (toPROL XL) TAKE 1/2 TABLET EVERY DAY 45 Tablet 3 Allopurinol 100 MG Oral Tablet (Zyloprim) TAKE 1 TABLET EVERY DAY 90 Tablet 3 traZODone HCl 100 MG Oral Tablet (Desyrel) Take 1 Tablet by mouth at bedtime. 90 Tablet 3 cloNIDine HCl 0.1 MG Oral Tablet (Catapres) TAKE 1 TABLET IN THE MORNING, TAKE 1 TABLET AT NOON ANDTAKE 1 TABLET AT BEDTIME 270 Tablet 3 Doxycycline Hyclate 20 MG Oral Tablet TAKE 1 TABLET TWICE DAILY WITH OR WITHOUT FOOD 180 Tablet 0 Ezetimibe 10 MG Oral Tablet (Zetia) TAKE 1 TABLET EVERY DAY 90 Tablet 3 Fenofibrate 200 MG Oral Capsule TAKE 1 CAPSULE EVERY DAY WITH A MEAL 90 Capsule 1 Indapamide 2.5 MG Oral Tablet (Lozol) TAKE 2 TABLETS EVERY DAY 180 Tablet 1 Felodipine ER 5 MG Oral Tablet Extended Release 24 Hour (Plendil) TAKE 1 TABLET EVERY DAY 90 Tablet1 Spironolactone 25 MG Oral Tablet (Aldactone) TAKE 1 TABLET EVERY DAY 90 Tablet 3 HYDROcodone-Acetaminophen 5-325 MG Oral Tablet Take 1-2 Tablets by mouth every 8 hours as needed for Pain, Mild. 100 Tablet 0 No current facility-administered medications for this visit. Review of patient's allergies indicates: No Known Allergies Objective: BP 122/68 | Pulse 65 | Temp 36.5 C (97.7 F) (Temporal Artery) | Resp 20 | Ht 1.778 m (5' 10") |Wt 82.6 kg (182 lb 3.2 oz) | SpO2 98% | BMI 26.14 kg/m | BSA 2.02 m Physical Exam: CONST: alert, pleasant, no acute distress HEAD: normocephalic, atraumatic NECK: supple, soft, no adenopathy EARS: canals normal, TMs normal Eyes - PERRLA, EOM'I OROPHARYNX: clear, no swelling or erythema, moist CV: regular rate and rhythm, no murmur CHEST: clear to auscultation bilaterally, no rales or wheezing ABD: soft, non tender, non distended, no masses or hepatosplenomegaly EXT: no edema, no joint swelling or deformities, NEURO: AAOx3, no gross focal deficits, cerebellar signs normal, affect appropriate MENTAL STATUS: no evidence of thought disorder, no delusional thought, no evidence of paranoia, thought is non-tangential. SKIN: no rash or significant lesions ASSESSMENT/PLAN: Risk and functional assessment (Primary) Chronic kidney disease, stage 3b (HCC)-follow up with Nephrology later this month - RENAL FUNCTION PANEL; Future; Expected date: 02/02/2023 - PHOSPHORUS; Future; Expected date: 02/02/2023 - HGB; Future; Expected date: 02/02/2023 - 25-HYDROXY VITAMIN D; Future; Expected date: 02/02/2023 - ALBUMIN / CREATININE RATIO, URINE; Future; Expected date: 02/02/2023 High triglycerides Dyslipidemia, goal LDL below 100-continue the combination of Crestor 40 mg daily and Zetia 10 mg daily Gastroesophageal reflux disease without esophagitis Trigeminal neuralgia -continue cCarbbamazepineER 200 mg twice a day Screen for colon cancer - COLONOSCOPY, GI REFERRAL OP Prediabetes - HEMOGLOBIN A1C; Future; Expected date: 02/02/2023 Follow Up: Return in about 6 months (around 08/03/2023) for Return with Physician. | For: Return withPhysician Domingo Zhang MD documented in this encounter Nursing Notes * Charlotte Gordillo LPN - 02/02/2023 8:27 AM EST The patient has been properly identified by confirmation of name and date of . Chief Complaint Patient presents with Status Check Return in 6 months documented in this encounter Plan of Treatment Upcoming Encounters Date Type Department Care Team (Latest Contact Info) Description 02/15/2023 1:00 PM EST Office Visit Nephrology, Terri Mojica [address] [facility] [place] [address] ZemaShakila bear PA-C [address] [facility] [place] [address] 04/20/2023 8:30 AM EST Appointment Radiology, [address] [address] 04/20/2023 9:00 AM EST Appointment Vascular Lab [facility], [address] [address] 04/20/2023 9:30 AM EST Office Visit Vascular Surg [facility], [address] [address] Rico Jha MD [facility] [place] [address] 05/05/2023 3:30 PM EST Office Visit Cardiology, [facility] [address] [place] [address] Juan Rivas MD [address] [place] [id number] 06/29/2023 7:30 AM EDT Hospital Encounter ENDO [facility], Endoscopy Room [facility] [address] [place] [phone] Babak Gavin DO [address] [place] [address] 06/29/2023 7:30 AM EDT - 06/29/2023 8:00 AM EDT Surgery ENDO [facility], Endoscopy Room [facility] [address] [place] [phone] Babak Gavin DO [address] [place] [id number] COLONOSCOPY FLEXIBLE PROXIMAL DIAGNOSTIC 08/04/2023 7:40 AM EDT Office Visit [facility] [address] [facility] [place] [id number] Domingo Zhang MD [address] [place] [address] 03/07/2024 8:40 AM EST Office Visit [facility] [address] [place] [address] Emily Balderas PA-C [address] [place] [address] [place] [address] Pending Results Name Type Priority Associated Diagnoses Date /Time RENAL FUNCTION PANEL Lab Routine Chronic kidney [...] stage 3b (HCC) 02/02/2023 9:43 AM EST Scheduled Orders Name Type Priority Associated Diagnoses Orde r Schedule RENAL FUNCTION PANEL Lab Routine Chronic kidney disease, stage 3b (HCC) Expected: 02/02/2023 (Approximate), Expires: 02/02/2024 HGB Lab Routine Chronic kidney disease, stage 3b (HCC) Expected: 02/02/2023 (Approximate), Expires: 02/02/2024 25-HYDROXY VITAMIN D Lab Routine Chronic kidney disease, stage 3b (HCC) Expected: 02/02/2023 (Approximate), Expires: 02/02/2024 HEMOGLOBIN A1C Lab Routine Prediabetes Expected: 02/02/2023 (Approximate), Expires: 02/02/2024 ALBUMIN / CREATININE RATIO, URINE Lab Routine Chronic kidney disease, stage 3b (HCC) Expected: 02/02/2023 (Approximate), Expires: 02/02/2024 Scheduled Procedures Name Priority Associated Diagnoses Date/Ti me COLONOSCOPY FLEXIBLE PROXIMAL DIAGNOSTIC History of colon polyps 06/29/2023 7:30 AM EDT Scheduled Referrals Name Type Priority Associated Diagnoses Orde r Schedule COLONOSCOPY, GI REFERRAL OP Referral Within 30 days (routine) Screen for colon cancer Ordered: 02/02/2023 Health Maintenance Due Date Last Done Comments Albumin/Creatinine Ratio 07/25/2019 07/24/2018, 09/25 Depression Screening 11/06/2020 11/07/2019 COLONOSCOPY-EVERY 3 YRS AGES 18-100 11/21/2021 11/21/2018, 11/21/2018, 08/30/2013, Additional history exists CKD PHOS USE SMARTSET 84895 10/22/202209/25, 03/04/2019, 07/24/2018, Additional history exists COVID-19 Vaccine ( season) 2022 07/04/2020, 06/12/2020 GFR 01/17/2023 07/18/2022, 06/25, 04/21/2022, Additional history exists CKD HGB USE SMARTSET 75843 07/19/202307/18, 07/11/2022, 07/11/2022, Additional history exists DTaP,Tdap,and [...] this encounter Medical Devices Implanted Type Area Associate Scientist Device Identifier Shelf Expiration Date Model / Serial / Lot Calvin Liquid Embolization Implanted:Qty: 1 on 04/15/2014 by Sahil Amos MD at [facility] [place] Tissue - Non Human Left: Aorta 10/13/2016 / [id number] / [id number]-35 Implanted:Qty: 1 on 08/14/2012 at [facility] [place] / [id number]-[id number] / [id number] documented as of this encounter Visit Diagnoses Diagnosis Risk and functional assessment- Primary Screening for unspecified condition Chronic kidney disease, stage 3b (HCC) High triglycerides Pure hyperglyceridemia Dyslipidemia, goal LDL below 100 Other and unspecified hyperlipidemia Gastroesophageal reflux disease without esophagitis Esophageal reflux Trigeminal neuralgia Screen for colon cancer Special screening for malignant neoplasms, colon Prediabetes Other abnormal glucose Need for prophylactic vaccination and inoculation against influenza History of colon polyps Personal history of [...] the patient have Health Care Power of Train Station Agent? No Care Teams Asset Protection Manager Relationship Specialty Start Date End Date Domingo Zhang MD [address] [place] [address] PCP - General 06/13/1997 documented as of this encounter
[2023-04-08] MEDS ORDERED: ASPIRIN CHEW 324 MG PO STA (03:05)
--- NOTE | 2023-04-08 03:38 | Emergency Department Note ---
History of Present Illness General Chief Complaint: Shortness of Breath/Dyspnea Time Seen by Provider: 04/08/23 03:05 History of Present Illness Provider Complaint: chest pain Time: 00:00 Duration: constant Onset: during rest Pain Location: left chest Pain Radiation: none Severity: mild Maximum Pain Intensity: 3 Current Pain Intensity: 1 Quality: + aching and + dull Relieved By: + nothing Exacerbated By: + nothing Context: + recent illness; no recent surgery, no recent immobilization, no recent travel, no trauma/injury, no new medications or no history of DVT/PE Associated symptoms: + dyspnea and + palpitations; no nausea, no vomiting, no diaphoresis, no syncope, no fever or no cough Treatments prior to arrival: aspirin Home Medications Medication Instructions Recorded Confirmed Type allopurinol 100 mg tablet 100 mg PO QAM 01/26/19 04/08/23 History ascorbic acid (vitamin C) 1,000 mg 1 g PO BID 01/26/19 04/08/23 History tablet carbamazepine 200 mg 200 mg PO BID 01/26/19 04/08/23 History tablet,extended release,12 hr (Tegretol XR) clonidine HCl 0.1 mg tablet 0.1 mg PO TID 01/26/19 04/08/23 History ezetimibe 10 mg tablet (Zetia) 10 mg PO QAM 01/26/19 04/08/23 History felodipine 5 mg tablet,extended 5 mg PO QAM 01/26/19 04/08/23 History release 24 hr fenofibrate micronized 200 mg 200 mg PO QPM 01/26/19 04/08/23 History capsule indapamide 2.5 mg tablet 2.5 mg PO BID 01/26/19 04/08/23 History irbesartan 150 mg tablet 150 mg PO BID 01/26/19 04/08/23 History magnesium oxide 500 mg PO QAM 01/26/19 04/08/23 History metoprolol succinate 50 mg 25 mg PO QAM 01/26/19 04/08/23 History tablet,extended release 24 hr minoxidil 10 mg tablet 5 mg PO BID 01/26/19 04/08/23 History omega 4-hak-fkk-fish oil 1,000 mg 2 cap PO BID 01/26/19 04/08/23 History (120 mg-180 mg) capsule (Fish Oil) potassium chloride 10 mEq 20 meq PO QAM 01/26/19 04/08/23 History tablet,extended release(part/cryst) rosuvastatin 40 mg tablet (Crestor) 40 mg PO QPM 01/26/19 04/08/23 History spironolactone 25 mg tablet 25 mg PO QAM 01/26/19 04/08/23 History (Aldactone) doxycycline monohydrate 50 mg 20 mg PO QAM 02/24/21 04/08/23 History tablet hydrocodone 5 mg-acetaminophen 325 1 - 2 tab PO Q6H PRN pain #10 tabs 07/18/22 04/08/23 Rx mg tablet aspirin 325 mg PO DAILY 04/08/23 04/08/23 History timolol maleate 0.5 % eye drops 1 drp ophthalmic (eye) BID 04/08/23 04/08/23 History trazodone 100 mg tablet 100 mg PO HS 04/08/23 04/08/23 History Allergies Allergy/AdvReac Type Severity Reaction Status Date / Time No Known Allergies Allergy Unknown Verified 01/12/23 09:50 Past Med/Surg History Medical History Bursitis of right hip Arthritis of left hip Hip bursitis, left Vertigo reports several day hospitalization yrs ago, resolved with positional maneuvers per pt, reports dizziness if stands too quickly so changes positions slowly, denies syncope, follows with PCP. 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 follows with [facility] GI, plan for monitoring imaging and annual f/u per note History of COVID-19 03/2020 Urgent [facility]-fatigue, fever, myalgias-recovered at home- symptoms resolved Pre-diabetes diet controlled per pt Sleep apnea CPAP-compliant Cardiac murmur Dyslipidemia, goal LDL below 70 Resistant hypertension follows with [facility] cardio CKD (chronic kidney disease) stage 3, GFR 30-59 ml/min F/U [facility] Abdominal aneurysm s/p endovascular repair 2005 with chronic endovascular leak, s/p multiple interventions with tribal coils (> 60 per pt), follows with vascular surgery annually with [facility] Surgical History Status post right knee replacement History of total knee replacement right History of esophagogastroduodenoscopy (EGD) History of tonsillectomy 1977 History of surgery coils for endovascular leak History of lumbar surgery 12/15/2016: L5-S1 decompression fusion. Grade 1 view, MAC#3, ETT#8.0. No issues per anesthesia progress note. Hospitalist note and pt report extended interval d/t urinary and bowel retention History of thumb surgery bilat ligament repair, 2009 History of shoulder surgery left, 2002 History of neck surgery cyst removal History of arthroscopy right knee with meniscus repair, 2007 History of colonoscopy History of appendectomy Hx of cardiac cath 2009-NO STENTS/2018 NO STENTS-[facility] H/O endovascular stent graft for abdominal aortic aneurysm 2006 Family History Sister Family history of diabetes mellitus Grandfather (Maternal) Family history of diabetes mellitus Social History Smoking Status: Never smoker Second Hand Exposure: No; Do You Dip or Chew Tobacco: No; Hx Alcohol Use: No Hx Substance Use: No Preferred Language: Khmer Communication Ability: Effective Classified Ad Clerk Required: No Beliefs That Will Affect Care: None marital status: Current Living Situation: Spouse Current Living Situation Comment: Lives with and mother in law current occupational status: employed 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 Feels Safe at Home: Yes Safety Concerns: Feels Safe At This Time Assistive Devices: Denture - Upper and Glasses Physical Exam Vital Signs Vital Signs - 24 hr 04/08/23 02:52 04/08/23 02:52 04/08/23 02:57 Temperature 36.5 C Temperature Source Temporal Artery Scan Pulse Rate 36 L Pulse Rate from SpO2 Sensor Respiratory Rate 16 Respiratory Effort / Characteristics Non-Labored Spontaneous Respiratory Depth Normal Blood Pressure 169/102 H Blood Pressure Mean 124 Pulse Oximetry 97 Oxygen Delivery Method Room Air Room Air Sepsis Recent Fever Within 48 Hours Yes Sepsis New/Unexplained Change in Mental Status No Sepsis Action Taken by Nursing No Action Required 04/08/23 03:05 04/08/23 03:10 04/08/23 03:13 Temperature Temperature Source Pulse Rate 64 67 Pulse Rate from SpO2 Sensor Respiratory Rate 17 Respiratory Effort / Characteristics Respiratory Depth Blood Pressure Blood Pressure Mean Pulse Oximetry 98 Oxygen Delivery Method Room Air Sepsis Recent Fever Within 48 Hours Sepsis New/Unexplained Change in Mental Status Sepsis Action Taken by Nursing 04/08/23 03:30 04/08/23 03:34 04/08/23 04:00 Temperature Temperature Source Pulse Rate 62 61 71 Pulse Rate from SpO2 Sensor 31 L 54 L Respiratory Rate 25 H 22 16 Respiratory Effort / Characteristics Respiratory Depth Blood Pressure 134/77 119/79 Blood Pressure Mean 96 92 Pulse Oximetry 96 95 Oxygen Delivery Method Sepsis Recent Fever Within 48 Hours Sepsis New/Unexplained Change in Mental Status Sepsis Action Taken by Nursing 04/08/23 04:30 Temperature Temperature Source Pulse Rate 53 L Pulse Rate from SpO2 Sensor 53 L Respiratory Rate 18 Respiratory Effort / Characteristics Respiratory Depth Blood Pressure 119/82 Blood Pressure Mean 94 Pulse Oximetry 94 Oxygen Delivery Method Sepsis Recent Fever Within 48 Hours Sepsis New/Unexplained Change in Mental Status Sepsis Action Taken by Nursing Physical Exam GENERAL: oriented to person, place, and time. appears well-developed and well- nourished. HENT: Exam performed. - Head: Normocephalic and atraumatic. EYES: Conjunctivae and EOM are normal. Right eye exhibits no discharge. Left eye exhibits no discharge. No scleral icterus. NECK: Normal range of motion. Neck supple. No JVD present. CV: Normal rate, regular rhythm, normal heart sounds and intact distal pulses. There is no peripheral edema. Palpable radial pulses bue. PULM/CHEST: Effort normal and breath sounds normal. No respiratory distress. No stridor. no wheezes. no rales. ABD: The abdomen is soft. There is no tenderness. NEURO: Motor and sensation grossly intact. SKIN: Skin is warm and dry. He is not diaphoretic. PSYCH: normal mood and affect. Behavior is normal. Judgment and thought content normal. Course Course 0305: The patient was evaluated in room A4. A complete history and physical exam was performed Cardiac monitoring: An order was placed for continuous cardiac monitoring. The monitor shows a rate of 60 with sinus with bigeminy pattern interpreted by me 0428: Vital signs stable. Labs within normal limits, creatinine at baseline. Patient's cardiac rhythm shows that the patient is no longer in a bigeminy pattern but is still having multiple PVCs. Patient reports no chest pain at this time. Given the patient's acute onset of symptoms patient will be admitted to the [facility] team for cardiology evaluation. Discussed case with Dr. Caraballo who evaluate the patient for admission. Administered Medications Magnesium Sulfate/Dextrose (Magnesium Sulfate / D5w) 1 gm in 100 mls @ 50 mls/hr IV ONE STA Stop: 04/08/23 06:29 Last Admin: 04/08/23 04:39 Dose: 50 mls/hr Documented By: COREY Discontinued Medications Aspirin (Aspirin Chew 324 Mg) 324 mg PO NOW STA Stop: 04/08/23 03:06 Last Admin: 04/08/23 03:32 Dose: Not Given Documented By: COREY Felodipine (Felodipine 5 Mg Tabcr) 5 mg PO NOW STA Stop: 04/08/23 04:36 Last Admin: 04/08/23 04:45 Dose: Not Given Documented By: COREY Potassium Chloride (Potassium Chloride Crtab 20 Meq Tabcr) 20 meq PO NOW STA Stop: 04/08/23 04:16 Last Admin: 04/08/23 04:39 Dose: 20 meq Documented By: COREY Potassium Chloride/Sodium Chloride (Nss+Kcl 20 Meq 1000ml) Confirm Administered Dose 20 meq IV .STK-MED ONE Stop: 04/08/23 05:38 Last Admin: 04/08/23 05:47 Dose: Not Given Documented By: BEVERLEY Medical Decision Making Laboratory Data Attestation: I reviewed the patient's lab results. 04/08/23 03:22 04/08/23 03:22 Labs: Lab Results 04/08/23 04/08/23 04/08/23 Range/Units 03:22 03:28 03:32 WBC 7.81 (4.8-10.8) K/ul RBC 4.42 L (4.70-6.10) M/uL Hgb 13.9 L (14.0-18.0) g/dl POC Hgb 13.3 L (14.0-18.0) g/dl Hct 40.3 L (42.0-52.0) % POC Hct 39 L (42-52) % MCV 91.2 (80.0-100.0) fL MCH 31.4 (25.0-34.0) pg MCHC 34.5 (32.0-36.0) g/dL RDW Std Deviation 43.7 (36.4-46.3) fL RDW Coeff of Zaria 13.0 (11.5-14.5) % Plt Count 185 (130-400) K/uL MPV 9.6 (9.4-12.4) fL Immature Gran % (Auto) 0.3 % Neut % (Auto) 58.3 % Lymph % (Auto) 29.6 % Humphreys % (Auto) 8.8 % Eos % (Auto) 2.6 % Baso % (Auto) 0.4 % Neut # (Auto) 4.56 (1.40-6.50) K/uL Lymph # (Auto) 2.31 (1.20-3.40) K/uL Humphreys # (Auto) 0.69 H (0.11-0.59) K/uL Eos # (Auto) 0.20 (0.00-0.50) K/uL Baso # (Auto) 0.03 (0.00-0.20) K/uL Immature Gran # (Auto) 0.02 (0.01-0.20) K/uL PT 11.3 (9.0-12.0) Seconds INR 1.0 (0.9-1.1) APTT 24 (21-31) Seconds PTT Ratio 0.9 POC Sodium 143 (135-144) mmol/L Sodium 142 (136-145) mmol/L POC Potassium 3.7 (3.3-5.0) mmol/L Potassium 3.8 (3.5-5.1) mmol/L POC Chloride 107 (101-112) mmol/L Chloride 107 (98-107) mmol/L Carbon Dioxide 26 (21-32) mmol/L POC Total CO2 24 (24-31) mmol/L Anion Gap 9 (3-11) POC Anion Gap 17.0 (16-25) mmol/L POC BUN 34 H (7-18) mg/dl BUN 36 H (6-23) mg/dl Creatinine 1.55 H (0.6-1.4) mg/dl POC Creatinine 1.7 H (0.6-1.3) mg/dl Est Cr Clr Drug Dosing 45.8 ml/min Est GFR ( Amer) 51.8 ml/min Est GFR (Non-Af Amer) 44.7 ml/min BUN/Creatinine Ratio 23.2 H (10-20) Glucose 107 H (70-99(Fasting)) mg/dl POC Glucose (other) 112 H (70-99) mg/dl Calcium 9.6 (8.6-10.3) mg/dl POC Ioniz Calcium Chele 1.16 (1.12-1.32) mmol/l Magnesium 1.9 (1.7-2.4) mg/dl Troponin I High Sens 19.3 (0-20) pg/ml Lipase 41 (11-82) U/L TSH 3.758 (0.300-4.500) uIu/ml Adenovirus (PCR) Not Detected (NotDetected) B. pertussis DNA (PCR) Not Detected (NotDetected) B.parapertussis DNA PCR Not Detected (NotDetected) Lyme Disease IgG Ab Negative (Negative) Lyme Disease IgM Ab Equivocal A (Negative) C. pneumoniae DNA (PCR) Not Detected (NotDetected) Coronavirus OC43 (PCR) Not Detected (NotDetected) Coronavirus HKU1 (PCR) Not Detected (NotDetected) Coronavirus 229E (PCR) Not Detected (NotDetected) SARS-CoV-2 (PCR) Not Detected (NotDetected) Coronavirus NL63 (PCR) Not Detected (NotDetected) Human Metapneumovir PCR Not Detected (NotDetected) Influenza Type A (PCR) Not Detected (NotDetected) Influenza Type B (PCR) Not Detected (NotDetected) M. pneumoniae (PCR) Not Detected (NotDetected) Parainfluenza 1 (PCR) Not Detected (NotDetected) Parainfluenza 2 (PCR) Not Detected (NotDetected) Parainfluenza 3 (PCR) Not Detected (NotDetected) Parainfluenza 4 (PCR) Not Detected (NotDetected) RSV (PCR) Not Detected (NotDetected) Entero/Rhino (PCR) Not Detected (NotDetected) Imaging Data Chest x-ray: Attestation: I personally reviewed and interpreted this imaging study as follows: My impression: No significant change from the chest x-ray in June 2022. ECG Data Attestation: I personally reviewed and interpreted this ECG as follows: Additional Comments: EKG #1 at 0308: Sinus rhythm with a rate of 63 with a bigeminy pattern. [place] 212 QRS [address] elevation or ST depression. EKG #2 at 0319: Sinus rhythm with rate of 59 with a bigeminy pattern. [place] 202 QRS [address] elevation or ST depression EKG #3 at 0403: Sinus bradycardia with a rate of 55. [place] 216 QRS [address] elevation or ST depression. Bigeminy has resolved. No PVCs. First-degree AV block present. [facility] Narrative 0305: The patient was evaluated in room A4. A complete history and physical exam was performed Cardiac monitoring: An order was placed for continuous cardiac monitoring. The monitor shows a rate of 60 with sinus with bigeminy pattern interpreted by me 0428: Vital signs stable. Labs within normal limits, creatinine at baseline. Patient's cardiac rhythm shows that the patient is no longer in a bigeminy pattern but is still having multiple PVCs. Patient reports no chest pain at this time. Given the patient's acute onset of symptoms patient will be admitted to [facility] hospitalist team for cardiology evaluation. Discussed case with Dr. Caraballo who evaluate the patient for admission. Impression & Plan Chest pain, Bigeminy Discharge Plan Visit Data Chief Complaint: Shortness of Breath/Dyspnea ED Provider: Carlo Ashford Discharge Problem: Chest pain, Bigeminy Patient Disposition: Being Evaluated by Hospitalist Discharge Instructions Interventions: ED Discharge Assessment Last Done: 04/08/23 06:05 Discharge Problem: Chest pain Qualifiers: Chest pain type: unspecified Qualified Code(s): R07.9 - Chest pain, unspecified
[2023-04-08 03:41] LABS: iSTAT Creatinine 1.7 mg/dl (0.6-1.3); iSTAT Hemoglobin 13.3 g/dl (14.0-18.0); iSTAT Ionized Calcium 1.16 mmol/l (1.12-1.32); iSTAT Potassium 3.7 mmol/L (3.3-5.0)
[2023-04-08 03:42] LABS: Basophils # (auto) 0.03 K/uL (0.00-0.20); Basophils % (auto) 0.4 %; Eosinophils % (auto) 2.6 %; Hematocrit (blood only) 40.3 % (42.0-52.0); Hemoglobin 13.9 g/dl (14.0-18.0); Immature Granulocytes # (auto) 0.02 K/uL (0.01-0.20); Immature Granulocytes % (auto) 0.3 %; Lymphocytes # (auto) 2.31 K/uL (1.20-3.40); Lymphocytes % (auto) 29.6 %; Mean Corpuscular Hemoglobin 31.4 pg (25.0-34.0); Mean Corpuscular Hgb Conc 34.5 g/dL (32.0-36.0); Mean Corpuscular Volume 91.2 fL (80.0-100.0); Mean Platelet Volume 9.6 fL (9.4-12.4); Monocytes # (auto) 0.69 K/uL (0.11-0.59); Monocytes % (auto) 8.8 %; Neutrophils # (auto) 4.56 K/uL (1.40-6.50); Neutrophils % (auto) 58.3 %; Platelet Count 185 K/uL (130-400); RDW Standard Deviation 43.7 fL (36.4-46.3); Red Blood Count 4.42 M/uL (4.70-6.10); White Blood Count 7.81 K/ul (4.8-10.8)
[2023-04-08 03:52] LABS: BUN Creatinine Ratio 23.2 (10-20); Calcium 9.6 mg/dl (8.6-10.3); Creatinine Clr Calc Pharmacy 45.8 ml/min; Est GFR (African American) 51.8 ml/min; Est GFR (Non-African American) 44.7 ml/min; Magnesium 1.9 mg/dl (1.7-2.4); Potassium 3.8 mmol/L (3.5-5.1)
[2023-04-08 03:59] LABS: Troponin I High Sensitivity 19.3 pg/ml (0-20)
[2023-04-08 04:08] LABS: Partial Thromboplastin Ratio 0.9; Partial Thromboplastin Time 24 Seconds (21-31); Prothrombin Time 11.3 Seconds (9.0-12.0)
[2023-04-08] MEDS ORDERED: POTASSIUM CHLORIDE CRTAB 20 MEQ TABCR PO STA (04:15)
[2023-04-08] MEDS ORDERED: ATROPINE SULFATE 0.1 MG/ML 10ML SYR IV PRN (04:17)
[2023-04-08] MEDS ORDERED: MAGNESIUM SULFATE / D5W 1 GM/100 ML BAG IV STA (04:30)
[2023-04-08 04:34] LABS: Adenovirus PCR Not Detected (NotDetected); Bordetella parapertussis PCR Not Detected (NotDetected); Bordetella pertussis PCR Not Detected (NotDetected); Chlamydia pneumoniae PCR Not Detected (NotDetected); Coronavirus 229E PCR Not Detected (NotDetected); Coronavirus CoV-2 (COVID19)PCR Not Detected (NotDetected); Coronavirus HKU1 PCR Not Detected (NotDetected); Coronavirus NL63 PCR Not Detected (NotDetected); Coronavirus OC43PCR Not Detected (NotDetected); Human Metapneumovirus PCR Not Detected (NotDetected); Influenza A PCR Not Detected (NotDetected); Influenza B PCR Not Detected (NotDetected); Mycoplasma pneumoniae PCR Not Detected (NotDetected); Parainfluenza Virus 1 PCR Not Detected (NotDetected); Parainfluenza Virus 2 PCR Not Detected (NotDetected); Parainfluenza Virus 3 PCR Not Detected (NotDetected); Parainfluenza Virus 4 PCR Not Detected (NotDetected); Respiratory Syncytial VirusPCR Not Detected (NotDetected); Rhinovirus/Enterovirus PCR Not Detected (NotDetected)
[2023-04-08] MEDS ORDERED: FELODIPINE 5 MG TABCR PO STA (04:35)
[2023-04-08 04:57] LABS: Thyroid Stimulating Hormone 3.758 uIu/ml (0.300-4.500)
--- NOTE | 2023-04-08 05:08 | History & Physical Report ---
Date of Service April 08, 2023 Assessment & Plan (1) Chest pain: Plan: Presenting as symptomatic bradycardia Equivocal Lyme screen CPAP noncompliance for LAMIN possibly contributory to bradyarrhythmia History nonocclusive CAD hypertension, currently stable hyperlipidemia, on statin and ezetimibe Rx AAA status post surgery DM2, diet controlled hemoglobin A1c of 6.28 January 2023 CRI, creatinine at baseline chronic anemia, hemoglobin at baseline PCU Atropine as needed symptomatic bradycardia Follow final Lyme testing, IV Ceftriaxone for now Patient counseled regarding need to comply with CPAP for LAMIN Hold home beta-qasim and clonidine for now. TTE, Cardiology consult Re: Symptomatic bradycardia N.p.o. until patient seen by cardiology in anticipation of procedure DVT prophylaxis with heparin subcu Full code Patient requesting updates from providers. Ms. Marcia Orozco, contact #[phone]. Text document was generated using [employer] voice recognition software. It may contain grammatical or spelling errors. Kindly contact undersigned for clarification of any documentation item in question. History of Present Illness Chief Complaint: Chest pain Primary Care Provider: Domingo Zhang MD History obtained from patient, family, and records. Medical history significant for nonocclusive CAD, hypertension, hyperlipidemia, AAA status post surgery, DM 2 diet-controlled, CRI (baseline creatinine 1.5), chronic anemia (baseline hemoglobin 12-13 ), GERD, trigeminal neuralgia, rosacea on doxycycline, LAMIN on CPAP. Last confinement June 2021 under orthopedic service for elective total right knee replacement. Patient with fatigue symptoms for couple of weeks. Admits to not being compliant to home CPAP machine for LAMIN secondary to shoulder issues. Denies headache symptoms. Patient unaware of tick bites. Last week, patient had transient achy left-sided chest pain without radiation symptoms. Patient took blood pressure at home. SBP transiently noted to be 200s. Heart rate 40s. BP improved after 1 dose of extra clonidine intake. Patient experienced SOB symptoms with recurrent left-sided chest pain last night. Heart rate noted to be 30s. Patient brought to ER for evaluation. Lowest heart rate of 30s noted at the ER. Aspirin administered at the ER. Current heart rate 50s, patient currently comfortable. 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 Allergies Allergy/AdvReac Type Severity Reaction Status Date / Time No Known Allergies Allergy Unknown Verified 01/12/23 09:50 Home Medications Medication Instructions Recorded Confirmed Type allopurinol 100 mg tablet 100 mg PO QAM 01/26/19 04/08/23 History ascorbic acid (vitamin C) 1,000 mg 1 g PO BID 01/26/19 04/08/23 History tablet carbamazepine 200 mg 200 mg PO BID 01/26/19 04/08/23 History tablet,extended release,12 hr (Tegretol XR) clonidine HCl 0.1 mg tablet 0.1 mg PO TID 01/26/19 04/08/23 History ezetimibe 10 mg tablet (Zetia) 10 mg PO QAM 01/26/19 04/08/23 History felodipine 5 mg tablet,extended 5 mg PO QAM 01/26/19 04/08/23 History release 24 hr fenofibrate micronized 200 mg 200 mg PO QPM 01/26/19 04/08/23 History capsule indapamide 2.5 mg tablet 2.5 mg PO BID 01/26/19 04/08/23 History irbesartan 150 mg tablet 150 mg PO BID 01/26/19 04/08/23 History magnesium oxide 500 mg PO QAM 01/26/19 04/08/23 History metoprolol succinate 50 mg 25 mg PO QAM 01/26/19 04/08/23 History tablet,extended release 24 hr minoxidil 10 mg tablet 5 mg PO BID 01/26/19 04/08/23 History omega 0-wgt-nuc-fish oil 1,000 mg 2 cap PO BID 01/26/19 04/08/23 History (120 mg-180 mg) capsule (Fish Oil) potassium chloride 10 mEq 20 meq PO QAM 01/26/19 04/08/23 History tablet,extended release(part/cryst) rosuvastatin 40 mg tablet (Crestor) 40 mg PO QPM 01/26/19 04/08/23 History spironolactone 25 mg tablet 25 mg PO QAM 01/26/19 04/08/23 History (Aldactone) doxycycline monohydrate 50 mg 20 mg PO QAM 02/24/21 04/08/23 History tablet hydrocodone 5 mg-acetaminophen 325 1 - 2 tab PO Q6H PRN pain #10 tabs 07/18/22 04/08/23 Rx mg tablet aspirin 325 mg PO DAILY 04/08/23 04/08/23 History timolol maleate 0.5 % eye drops 1 drp ophthalmic (eye) BID 04/08/23 04/08/23 History trazodone 100 mg tablet 100 mg PO HS 04/08/23 04/08/23 History Past Med/Surg History Medical History Bursitis of right hip Arthritis of left hip Hip bursitis, left Vertigo reports several day hospitalization yrs ago, resolved with positional maneuvers per pt, reports dizziness if stands too quickly so changes positions slowly, denies syncope, follows with PCP. 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 follows with [facility] GI, plan for monitoring imaging and annual f/u per note History of COVID-19 03/2020 [facility]-fatigue, fever, myalgias-recovered at home- symptoms resolved Pre-diabetes diet controlled per pt Sleep apnea CPAP-compliant Cardiac murmur Dyslipidemia, goal LDL below 70 Resistant hypertension follows with [facility] cardio CKD (chronic kidney disease) stage 3, GFR 30-59 ml/min F/U [facility] Abdominal aneurysm s/p endovascular repair 2005 with chronic endovascular leak, s/p multiple interventions with [place] coils (> 60 per pt), follows with vascular surgery annually with [facility] Surgical History Status post right knee replacement History of total knee replacement right History of esophagogastroduodenoscopy (EGD) History of tonsillectomy 1977 History of surgery coils for endovascular leak History of lumbar surgery 12/15/2016: L5-S1 decompression fusion. Grade 1 view, MAC#3, ETT#8.0. No issues per anesthesia progress note. Hospitalist note and pt report extended interval d/t urinary and bowel retention History of thumb surgery bilat ligament repair, 2009 History of shoulder surgery left, 2001 History of neck surgery cyst removal History of arthroscopy right knee with meniscus repair, 2007 History of colonoscopy History of appendectomy Hx of cardiac cath 2009-NO STENTS/2018 NO STENTS-[facility] H/O endovascular stent graft for abdominal aortic aneurysm 2005 Family History Sister Family history of diabetes mellitus Grandfather (Maternal) Family history of diabetes mellitus Social History Smoking Status: Never smoker Second Hand Exposure: No; Do You Dip or Chew Tobacco: No; Hx Alcohol Use: No Hx Substance Use: No Preferred Language: Croatian Communication Ability: Effective Rotor Coil Taper Required: No Beliefs That Will Affect Care: None marital status: Current Living Situation: Spouse Current Living Situation Comment: Lives with and mother in law current occupational status: employed current occupation: SELF EMPLOYED HOTEL OPERATIONS MANAGER Feels Safe at Home: Yes Safety Concerns: Feels Safe At This Time Assistive Devices: Denture - Upper and Glasses Review of Systems Review of Systems: As per HPI, all other systems reviewed and negative Physical Exam Physical Exam: GENERAL: Comfortable, pleasant, no respiratory distress SKIN: Normal color, warm HEENT: [place] palpebral conjunctivae, no ptosis, dry buccal mucosa NECK : Supple, no tenderness CHEST : CTA, no tenderness HEART : Bradycardic, no obvious murmurs ABDOMEN: Some distention, nontender EXTREMITIES : No LE swelling/tenderness, no other conspicuous deformities noted NEUROLOGIC : Coherent, no facial asymmetry, no other gross focality Results & Data Results & Data Vital Signs (Past 12 Hours) Vital Signs Temp Pulse Resp BP Pulse Ox O2 Del Method 04/08/23 04:30 53 L 18 119/82 94 04/08/23 04:00 71 16 119/79 95 04/08/23 03:34 61 22 134/77 96 04/08/23 03:30 62 25 H 04/08/23 03:13 67 04/08/23 03:10 64 17 04/08/23 03:05 98 Room Air 04/08/23 02:57 36.5 C 36 L 16 169/102 H 97 Room Air 04/08/23 02:52 Room Air Laboratory Results Laboratory Results WBC 7.81 K/ul (4.8-10.8) 04/08/23 03:22 RBC 4.42 M/uL (4.70-6.10) L 04/08/23 03:22 Hgb 13.9 g/dl (14.0-18.0) L 04/08/23 03:22 POC Hgb 13.3 g/dl (14.0-18.0) L 04/08/23 03:28 Hct 40.3 % (42.0-52.0) L 04/08/23 03:22 POC Hct 39 % (42-52) L 04/08/23 03:28 MCV 91.2 fL (80.0-100.0) 04/08/23 03:22 MCH 31.4 pg (25.0-34.0) 04/08/23 03:22 MCHC 34.5 g/dL (32.0-36.0) 04/08/23 03:22 RDW Std Deviation 43.7 fL (36.4-46.3) 04/08/23 03: RDW Coeff of [place]aria 13.0 % (11.5-14.5) 04/08/23 03:22 Plt Count 185 K/uL (130-400) 04/08/23 03:22 MPV 9.6 fL (9.4-12.4) 04/08/23 03:22 Immature Gran % (Auto) 0.3 % 04/08/23 03:22 Neut % (Auto) 58.3 % 04/08/23 03:22 Lymph % (Auto) 29.6 % 04/08/23 03:22 [place] % (Auto) 8.8 % 04/08/23 03:22 Eos % (Auto) 2.6 % 04/08/23 03:22 Baso % (Auto) 0.4 % 04/08/23 03:22 Neut # (Auto) 4.56 K/uL (1.40-6.50) 04/08/23 03:22 Lymph # (Auto) 2.31 K/uL (1.20-3.40) 04/08/23 03:22 [place] # (Auto) 0.69 K/uL (0.11-0.59) H 04/08/23 03:22 Eos # (Auto) 0.20 K/uL (0.00-0.50) 04/08/23 03:22 Baso # (Auto) 0.03 K/uL (0.00-0.20) 04/08/23 03:22 Immature Gran # (Auto) 0.02 K/uL (0.01-0.20) 04/08/23 03:22 PT 11.3 Seconds (9.0-12.0) 04/08/23 03:22 INR 1.0 (0.9-1.1) 04/08/23 03:22 APTT 24 Seconds (21-31) 04/08/23 03:22 PTT Ratio 0.9 04/08/23 03:22 POC Sodium 143 mmol/L (135-144) 04/08/23 03:28 Sodium 142 mmol/L (136-145) 04/08/23 03:22 POC Potassium 3.7 mmol/L (3.3-5.0) 04/08/23 03:28 Potassium 3.8 mmol/L (3.5-5.1) 04/08/23 03:22 POC Chloride 107 mmol/L (101-112) 04/08/23 03:28 Chloride 107 mmol/L (98-107) 04/08/23 03:22 Carbon Dioxide 26 mmol/L (21-32) 04/08/23 03:22 POC Total CO2 24 mmol/L (24-31) 04/08/23 03:28 Anion Gap 9 (3-11) 04/08/23 03:22 POC Anion Gap 17.0 mmol/L (16-25) 04/08/23 03:28 POC BUN 34 mg/dl (7-18) H 04/08/23 03:28 BUN 36 mg/dl (6-23) H 04/08/23 03:22 Creatinine 1.55 mg/dl (0.6-1.4) H 04/08/23 03:22 POC Creatinine 1.7 mg/dl (0.6-1.3) H 04/08/23 03:28 Est Cr Clr Drug Dosing 45.8 ml/min 04/08/23 03:22 Est GFR ( Amer) 51.8 ml/min 04/08/23 03:22 Est GFR (Non-Af Amer) 44.7 ml/min 04/08/23 03:22 BUN/Creatinine Ratio 23.2 (10-20) H 04/08/23 03:22 Glucose 107 mg/dl (70-99(Fasting)) H 04/08/23 03:22 POC Glucose (other) 112 mg/dl (70-99) H 04/08/23 03:28 Calcium 9.6 mg/dl (8.6-10.3) 04/08/23 03:22 POC Ioniz Calcium [place] 1.16 mmol/l (1.12-1.32) 04/08/23 03:28 Magnesium 1.9 mg/dl (1.7-2.4) 04/08/23 03:22 Troponin I High Sens 19.3 pg/ml (0-20) 04/08/23 03:22 Lipase 41 U/L (11-82) 04/08/23 03:22 TSH 3.758 uIu/ml (0.300-4.500) 04/08/23 03:22 Adenovirus (PCR) Not Detected (NotDetected) 04/08/23 03:32 B. pertussis DNA (PCR) Not Detected (NotDetected) 04/08/23 03:32 B.parapertussis DNA PCR Not Detected (NotDetected) 04/08/23 03:32 C. pneumoniae DNA (PCR) Not Detected (NotDetected) 04/08/23 03:32 Coronavirus OC43 (PCR) Not Detected (NotDetected) 04/08/23 03:32 Coronavirus HKU1 (PCR) Not Detected (NotDetected) 04/08/23 03:32 Coronavirus 229E (PCR) Not Detected (NotDetected) 04/08/23 03:32 SARS-CoV-2 (PCR) Not Detected (NotDetected) 04/08/23 03:32 Coronavirus NL63 (PCR) Not Detected (NotDetected) 04/08/23 03:32 Human Metapneumovir PCR Not Detected (NotDetected) 04/08/23 03:32 Influenza Type A (PCR) Not Detected (NotDetected) 04/08/23 03:32 Influenza Type B (PCR) Not Detected (NotDetected) 04/08/23 03:32 M. pneumoniae (PCR) Not Detected (NotDetected) 04/08/23 03:32 Parainfluenza 1 (PCR) Not Detected (NotDetected) 04/08/23 03:32 Parainfluenza 2 (PCR) Not Detected (NotDetected) 04/08/23 03:32 Parainfluenza 3 (PCR) Not Detected (NotDetected) 04/08/23 03:32 Parainfluenza 4 (PCR) Not Detected (NotDetected) 04/08/23 03:32 RSV (PCR) Not Detected (NotDetected) 04/08/23 03:32 Entero/Rhino (PCR) Not Detected (NotDetected) 04/08/23 03:32 Diagnostic Findings Chest x-ray as per my interpretation cardiomegaly EKG as per my interpretation : Rate 55, sinus bradycardia, normal axis, septal infarct, PVCs (1) Chest pain Chest pain type: unspecified Qualified Code(s): R07.9 - Chest pain, unspecified
[2023-04-08] MEDS ORDERED: oxyCODONE HCL IR 5 MG TAB (IMMEDIATE RELEASE) PO PRN (05:12)
[2023-04-08] MEDS ORDERED: PROMETHAZINE HCL 6.25 MG in SODIUM CHLORIDE 0.9% 50 ML IV PRN (05:12)
[2023-04-08 05:15] LABS: Lyme Ab IgG w/WB Rflx Negative (Negative)
[2023-04-08] MEDS ORDERED: NSS+KCL 20 MEQ 1000ML IV ONE (05:37)
[2023-04-08] MEDS ORDERED: SODIUM CHLOR 0.45% + 20MEQ KCL 20 MEQ/1,000 ML BAG IV STA (05:40)
[2023-04-08 06:04] LABS: Lyme Ab IgM w/WB Rflx Equivocal (Negative)
[2023-04-08] MEDS ORDERED: ACETAMINOPHEN 325 MG TAB PO PRN (06:05)
[2023-04-08] MEDS: HEPARIN SOD 5,000 UNIT/0.5 ML VIAL SQ SCH ×3 (06:39→21:04)
--- NOTE | 2023-04-08 07:20 | XRay Report ---
SINGLE VIEW CHEST CLINICAL HISTORY: Atypical chest pain. FINDINGS: An AP, portable, upright chest radiograph is compared to study dated 07/18/2022. Correlation is made with MRI of the chest dated 01/26/2019. The heart is enlarged. The pulmonary vasculature is n oncongested. Mild dilatation of the aorta is likely unchanged. Chronic interstitial thickening is sim ilar to previous. There is bibasilar scarring/atelectasis. The lungs and pleural spaces are otherwise clear. No pneumothorax is seen. The skeletal structures are osteopenic. The bony thorax is grossly i ntact. IMPRESSION: Cardiomegaly with no acute cardiopulmonary abnormality identified. ACT 112: Negative or not required by law. Electronically signed by: Gil Gomez M.D. 04/08/2023 7:19 AM
[2023-04-08] MEDS: FELODIPINE 5 MG TABCR PO SCH (09:05)
[2023-04-08] MEDS: EZETIMIBE 10 MG TAB PO SCH (09:05)
[2023-04-08] MEDS: minoxidiL 2.5 MG TAB PO SCH ×2 (09:06→20:09)
[2023-04-08] MEDS: allopurinoL 100 MG TAB PO SCH (09:06)
[2023-04-08] MEDS: LOSARTAN POTASSIUM 50 MG TAB PO SCH ×2 (09:07→20:09)
[2023-04-08] MEDS: TIMOLOL MALEATE 0.5% OP SOLN 5 ML BTL OP SCH ×2 (09:08→20:08)
[2023-04-08] MEDS: SPIRONOLACTONE 25 MG TAB PO SCH (10:16)
[2023-04-08] MEDS: cefTRIAXone SODIUM 2,000 MG in DEXTROSE 5 % MINI-B 50 ML IV SCH (10:17)
[2023-04-08] MEDS ORDERED: GLUCOSE 10 TAB/TUBE PO PRN (11:07)
[2023-04-08] MEDS ORDERED: DEXTROSE 50% 50 ML SYRINGE IV PRN (11:07)
[2023-04-08] MEDS ORDERED: GLUCOSE 40% GEL 15 GM TUBE PO PRN (11:07)
[2023-04-08] MEDS ORDERED: CARBOHYDRATES FOR HYPOGLYCEMIA PO PRN (11:07)
[2023-04-08] MEDS ORDERED: GLUCAGON FOR INJ 1 MG VIAL SQ PRN (11:07)
[2023-04-08] MEDS: INSULIN ASPART PER UNIT CHARGE SC SCH ×3 (13:00→21:03)
--- NOTE | 2023-04-08 15:47 | Hospitalist Progress Note ---
Date of Service April 08, 2023 Assessment & Plan (1) Chest pain: Plan: Symptomatic bradycardia Repeat EKG showed sinus bradycardia with first-degree AV block PVCs resolved Normal troponins, normal TSH Bio fire negative Monitor and replace electrolytes as needed Metoprolol, clonidine held Avoid AV derrell blocking agents Echo pending Cardiology consulted Atropine as needed for bradycardia Equivocal Lyme screen Patient denies tick bite next Confirmatory serology for Lyme's pending LAMIN noncompliance with CPAP use Also to use CPAP regularly Obtain nocturnal oximetry study Nonocclusive CAD Hypertension Hyperlipidemia Continue home medications Metoprolol, clonidine held due to bradycardia Monitor BP AAA S/P surgery DM II HbA1c of 6.28 Jan 2023 Continue insulin while hospitalized Monitor BGs CKD III Cr at baseline Monitor renal function Avoid nephrotoxic agents as able DVT Px: Heparin SQ Code Status Full code Admission and Anticipated Discharge Date Admission Date: April 08, 2023 Subjective Patient is seen and examined at bedside Nausea, dyspnea, chest discomfort resolved Currently offers no complaints Discussed with patient's family at bedside No other complaints Review of Systems Review of Systems: All systems reviewed & are unremarkable except as noted in Subjective Physical Exam Physical Exam: Physical Exam: Vitals signs as noted above General Appearance:Moderately built and nourished, no apparent distress Head: normocephalic, Atraumatic Eyes: normal inspection, EOMI Neck: supple, Trachea midline Respiratory/Chest: Normal breath sounds, CTA, No accessory muscle use Cardiovascular: S1, S2, No murmur Abdomen/GI:Soft, Non tender, Bowel sounds present Extremities/Musculoskeletal:normal inspection, no edema Neurologic/Psych:AAOX3, grossly no focal neurological deficits Skin: normal color, warm Results & Data Results & Data Vital Signs (Past 12 Hours) Vital Signs Temp Pulse Pulse Resp BP BP Pulse Ox 04/08/23 15:00 65 16 95 04/08/23 14:00 125/78 04/08/23 14:00 65 15 96 04/08/23 13:00 58 L 18 95 04/08/23 12:05 133/88 04/08/23 12:05 53 L 19 95 04/08/23 12:04 62 14 95 04/08/23 10:00 57 L 13 97 04/08/23 10:00 130/79 04/08/23 09:18 36.4 C L 64 16 136/82 95 04/08/23 09:03 60 14 98 04/08/23 09:03 136/82 04/08/23 09:00 53 L 17 97 04/08/23 08:00 55 L 19 94 04/08/23 07:33 53 L 04/08/23 07:00 52 L 16 95 04/08/23 06:00 61 21 04/08/23 06:00 36.8 C 54 L 15 133/82 96 04/08/23 05:57 54 L 04/08/23 05:40 133/82 04/08/23 05:40 53 L 15 97 04/08/23 05:00 57 L 17 95 04/08/23 05:00 142/91 H 04/08/23 04:30 53 L 18 119/82 94 04/08/23 04:00 71 16 119/79 95 O2 Del Method 04/08/23 15:00 04/08/23 14:00 04/08/23 14:00 04/08/23 13:00 04/08/23 12:05 04/08/23 12:05 04/08/23 12:04 04/08/23 10:00 04/08/23 10:00 04/08/23 09:18 Room Air 04/08/23 09:03 04/08/23 09:03 04/08/23 09:00 04/08/23 08:00 04/08/23 07:33 04/08/23 07:00 04/08/23 06:00 04/08/23 06:00 Room Air 04/08/23 05:57 04/08/23 05:40 04/08/23 05:40 04/08/23 05:00 04/08/23 05:00 04/08/23 04:30 04/08/23 04:00 Laboratory Results Short CBC 04/08/23 Range/Units 03:22 WBC 7.81 (4.8-10.8) K/ul Hgb 13.9 L (14.0-18.0) g/dl Hct 40.3 L (42.0-52.0) % Plt Count 185 (130-400) K/uL BMP 04/08/23 03:22 Sodium 142 Potassium 3.8 Chloride 107 Carbon Dioxide 26 BUN 36 H Creatinine 1.55 H Glucose 107 H Calcium 9.6 (1) Chest pain Chest pain type: unspecified Qualified Code(s): R07.9 - Chest pain, unspecified
--- NOTE | 2023-04-08 16:46 | Cardiology Consultation ---
Date of Consultation April 08, 2023 Assessment & Plan (1) Bigeminy: (2) Atypical chest pain: (3) HTN (hypertension): (4) S/P AAA repair: Plan 72-year-old patient presents to the ER with evidence of ventricular ectopy, ventricular bigeminy and possible bradycardia per home blood pressure monitor. Reduced pulse rate of 30 bpm noted on home blood pressure monitor likely due to ventricular bigeminy. No significant bradycardia or pauses recorded on telemetry since admission. ECG with sinus rhythm, first-degree AV block, PVCs, and occasional PACs. No indication for pacemaker currently. Recommend titration of Toprol-XL to 25 mg twice daily. Continue observation overnight. Continue other cardiovascular medications including spironolactone, felodipine, indapamide, fenofibrate, Zetia, clonidine, potassium supplementation, aspirin, rosuvastatin, minoxidil, and irbesartan. Review resting 2D transthoracic echocardiogram when available. All questions answered to satisfaction of both the patient and his . History of Present Illness Reason for Consultation: Chest pain, bradycardia Requesting Physician: Dr. Vidal Attending Physician: Santana Dalton MD History of Present Illness 72-year-old male present to the emergency department due to bradycardia and chest discomfort. Reports watching TV on the night prior to presentation and feeling "not right in the chest". Longstanding history of hypertension and premature ventricular complexes. Home blood pressure monitor reporting pulse rate of 30 bpm which prompted him to come to the ER. In the ER telemetry revealing sinus bradycardia and frequent PVCs with periods of ventricular bigeminy. Currently pain-free. present at bedside. Voices concern regarding intermittent elevated blood pressure readings. They also are questioning whether pacemaker is necessary at this time. Patient admits to utilizing additional doses of metoprolol occasionally for worsening palpitations. Prescribed 25 mg once daily, however, on occasion he is taking 25 mg twice daily. Denies lightheadedness, dizziness, syncope, or near syncope. No orthopnea, PND, or lower extremity edema. , Marcia, present at bedside. Offers no additional concerns/complaints. Allergies Allergy/AdvReac Type Severity Reaction Status Date / Time No Known Allergies Allergy Unknown Verified 01/12/23 09:50 Home Medications Medication Instructions Recorded Confirmed Type allopurinol 100 mg tablet 100 mg PO QAM 01/26/19 04/08/23 History ascorbic acid (vitamin C) 1,000 mg 1 g PO BID 01/26/19 04/08/23 History tablet carbamazepine 200 mg 200 mg PO BID 01/26/19 04/08/23 History tablet,extended release,12 hr (Tegretol XR) clonidine HCl 0.1 mg tablet 0.1 mg PO TID 01/26/19 04/08/23 History ezetimibe 10 mg tablet (Zetia) 10 mg PO QAM 01/26/19 04/08/23 History felodipine 5 mg tablet,extended 5 mg PO QAM 01/26/19 04/08/23 History release 24 hr fenofibrate micronized 200 mg 200 mg PO QPM 01/26/19 04/08/23 History capsule indapamide 2.5 mg tablet 2.5 mg PO BID 01/26/19 04/08/23 History irbesartan 150 mg tablet 150 mg PO BID 01/26/19 04/08/23 History magnesium oxide 500 mg PO QAM 01/26/19 04/08/23 History metoprolol succinate 50 mg 25 mg PO QAM 01/26/19 04/08/23 History tablet,extended release 24 hr minoxidil 10 mg tablet 5 mg PO BID 01/26/19 04/08/23 History omega 4-vfi-woc-fish oil 1,000 mg 2 cap PO BID 01/26/19 04/08/23 History (120 mg-180 mg) capsule (Fish Oil) potassium chloride 10 mEq 20 meq PO QAM 01/26/19 04/08/23 History tablet,extended release(part/cryst) rosuvastatin 40 mg tablet (Crestor) 40 mg PO QPM 01/26/19 04/08/23 History spironolactone 25 mg tablet 25 mg PO QAM 01/26/19 04/08/23 History (Aldactone) doxycycline monohydrate 50 mg 20 mg PO QAM 02/24/21 04/08/23 History tablet hydrocodone 5 mg-acetaminophen 325 1 - 2 tab PO Q6H PRN pain #10 tabs 07/18/22 04/08/23 Rx mg tablet aspirin 325 mg PO DAILY 04/08/23 04/08/23 History timolol maleate 0.5 % eye drops 1 drp ophthalmic (eye) BID 04/08/23 04/08/23 History trazodone 100 mg tablet 100 mg PO HS 04/08/23 04/08/23 History Patient History Medical History Bursitis of right hip Arthritis of left hip Hip bursitis, left Vertigo reports several day hospitalization yrs ago, resolved with positional maneuvers per pt, reports dizziness if stands too quickly so changes positi ons slowly, denies syncope, follows with PCP. 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 follows with [facility] GI, plan for monitoring imaging and annual f/u per note History of COVID-19 03/2020 [facility]-fatigue, fever, myalgias-recovered at home- symptoms resolved Pre-diabetes diet controlled per pt Sleep apnea CPAP-compliant Cardiac murmur Dyslipidemia, goal LDL below 70 Resistant hypertension follows with [facility] cardio CKD (chronic kidney disease) stage 3, GFR 30-59 ml/min F/U [facility] Abdominal aneurysm s/p endovascular repair 2006 with chronic endovascular leak, s/p multiple interventions with modoc coils (> 60 per pt), follows with vascular surgery annually with [facility] Surgical History Status post right knee replacement History of total knee replacement right History of esophagogastroduodenoscopy (EGD) History of tonsillectomy 1977 History of surgery coils for endovascular leak History of lumbar surgery 12/15/2016: L5-S1 decompression fusion. Grade 1 view, MAC#3, ETT#8.0. No issues per anesthesia progress note. Hospitalist note and pt report extended interval d/t urinary and bowel retention History of thumb surgery bilat ligament repair, 2009 History of shoulder surgery left, 2002 History of neck surgery cyst removal History of arthroscopy right knee with meniscus repair, 2007 History of colonoscopy History of appendectomy Hx of cardiac cath 2009-NO STENTS/2019 NO STENTS-[facility] H/O endovascular stent graft for abdominal aortic aneurysm 2006 Family History Sister Family history of diabetes mellitus Grandfather (Maternal) Family history of diabetes mellitus Social History (Reviewed 04/08/23 @ 16:41 by JULIA Dickerson Smoking Status: Never smoker Second Hand Exposure: No; Do You Dip or Chew Tobacco: No; Hx Alcohol Use: No Hx Substance Use: No Preferred Language: Romansh Communication Ability: Effective Crew Scheduler Required: No Beliefs That Will Affect Care: None marital status: Current Living Situation: Spouse Current Living Situation Comment: Lives with and mother in law current occupational status: employed 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 Feels Safe at Home: Yes Safety Concerns: Feels Safe At This Time Assistive Devices: Denture - Upper and Glasses Review of Systems Review of Systems: All systems reviewed & are unremarkable except as noted in Subjective Physical Exam Constitutional: well nourished; no acute distress Respiratory: no respiratory distress, no labored breathing and no retractions Auscultation: no crackles, no rales, no rhonchi and no wheezes Cardiovascular: Rate/Rhythm: regular rate and regular rhythm Heart Sounds: normal S1 and normal S2 Vessels: radial pulses present; no JVD Extremities: no edema Gastrointestinal (Abdomen): Inspection/Auscultation: normal bowel sounds; abdomen not distended Percussion/Palpation: abdomen soft; abdomen nontender, no guarding and abdomen not rigid Neurologic: CN's II-XI intact bilaterally and moves all extremities; no focal motor deficits Psychiatric: A+Ox3, euthymic affect Results & Data Vital Signs (Past 12 Hours) Vital Signs Temp Pulse Pulse Resp BP BP Pulse Ox 04/08/23 15:36 71 20 157/78 H 96 04/08/23 15:00 65 16 95 04/08/23 14:00 125/78 04/08/23 14:00 65 15 96 04/08/23 13:00 58 L 18 95 04/08/23 12:05 133/88 04/08/23 12:05 53 L 19 95 04/08/23 12:04 62 14 95 04/08/23 10:00 57 L 13 97 04/08/23 10:00 130/79 04/08/23 09:18 36.4 C L 64 16 136/82 95 04/08/23 09:03 60 14 98 04/08/23 09:03 136/82 04/08/23 09:00 53 L 17 97 04/08/23 08:00 55 L 19 94 04/08/23 07:33 53 L 04/08/23 07:00 52 L 16 95 04/08/23 06:00 61 21 04/08/23 06:00 36.8 C 54 L 15 133/82 96 04/08/23 05:57 54 L 04/08/23 05:40 133/82 04/08/23 05:40 53 L 15 97 04/08/23 05:00 57 L 17 95 04/08/23 05:00 142/91 H O2 Del Method 04/08/23 15:36 Room Air 04/08/23 15:00 04/08/23 14:00 04/08/23 14:00 04/08/23 13:00 04/08/23 12:05 04/08/23 12:05 04/08/23 12:04 04/08/23 10:00 04/08/23 10:00 04/08/23 09:18 Room Air 04/08/23 09:03 04/08/23 09:03 04/08/23 09:00 04/08/23 08:00 04/08/23 07:33 04/08/23 07:00 04/08/23 06:00 04/08/23 06:00 Room Air 04/08/23 05:57 04/08/23 05:40 04/08/23 05:40 04/08/23 05:00 04/08/23 05:00 Laboratory Results Cardiac Enzymes 04/08/23 04/08/23 Range/Units 03:22 07:50 Troponin I High Sens 19.3 14.1 D (0-20) pg/ml Coagulation 04/08/23 Range/Units 03:22 PT 11.3 (9.0-12.0) Seconds APTT 24 (21-31) Seconds CBC 04/08/23 Range/Units 03:22 WBC 7.81 (4.8-10.8) K/ul RBC 4.42 L (4.70-6.10) M/uL Hgb 13.9 L (14.0-18.0) g/dl Hct 40.3 L (42.0-52.0) % Plt Count 185 (130-400) K/uL Neut # (Auto) 4.56 (1.40-6.50) K/uL Lymph # (Auto) 2.31 (1.20-3.40) K/uL [place] # (Auto) 0.69 H (0.11-0.59) K/uL Eos # (Auto) 0.20 (0.00-0.50) K/uL Baso # (Auto) 0.03 (0.00-0.20) K/uL Comprehensive Metabolic Panel 04/08/23 Range/Units 03:22 Sodium 142 (136-145) mmol/L Potassium 3.8 (3.5-5.1) mmol/L Chloride 107 (98-107) mmol/L Carbon Dioxide 26 (21-32) mmol/L BUN 36 H (6-23) mg/dl Creatinine 1.55 H (0.6-1.4) mg/dl Glucose 107 H (70-99(Fasting)) mg/dl Calcium 9.6 (8.6-10.3) mg/dl Intake and Output 04/08/23 04/08/23 04/08/23 06:59 14:59 22:59 Intake Total 100 / 100 50 / 50 Balance 100 / 100 50 / 50 Intake: IV 100 / 100 50 / 50 Magnesium Sulfate / D5w 1 gm In 100 / 100 100 ml @ 50 mls/hr IV ONE STA Rx#:[id number] cefTRIAXone SODIUM 2,000 mg In 50 / 50 Dextrose 5 % Mini-B 50 ml @ 100 mls/hr IV Q24H [facility] Rx#: [id number] Other: Weight 82.3 kg Weight Measurement Method Built in [facility] (3) HTN (hypertension) Hypertension type: essential hypertension Qualified Code(s): I10 - Essential (primary) hypertension
[2023-04-08] MEDS: carBAMazepine XR 200 MG TABCR PO SCH (20:08)
[2023-04-08] MEDS ORDERED: ROSUVASTATIN CALCIUM 20 MG TAB PO SCH (21:00)
[2023-04-08] MEDS ORDERED: traZODone HCL 100 MG TAB PO SCH (21:00)
[2023-04-08] MEDS ORDERED: FENOFIBRATE NANOCRYSTALLIZED 145 MG TABLET PO SCH (21:00)
[2023-04-09] MEDS ORDERED: cloNIDine HCL 0.1 MG TAB PO STA (00:46)
[2023-04-09 04:16] LABS: Basophils # (auto) 0.02 K/uL (0.00-0.20); Basophils % (auto) 0.4 %; Eosinophils # (auto) 0.19 K/uL (0.00-0.50); Eosinophils % (auto) 3.5 %; Hematocrit (blood only) 39.4 % (42.0-52.0); Hemoglobin 13.3 g/dl (14.0-18.0); Immature Granulocytes # (auto) 0.01 K/uL (0.01-0.20); Immature Granulocytes % (auto) 0.2 %; Lymphocytes # (auto) 1.92 K/uL (1.20-3.40); Lymphocytes % (auto) 35.8 %; Mean Corpuscular Hemoglobin 30.8 pg (25.0-34.0); Mean Corpuscular Hgb Conc 33.8 g/dL (32.0-36.0); Mean Corpuscular Volume 91.2 fL (80.0-100.0); Mean Platelet Volume 9.2 fL (9.4-12.4); Monocytes # (auto) 0.55 K/uL (0.11-0.59); Monocytes % (auto) 10.3 %; Neutrophils # (auto) 2.67 K/uL (1.40-6.50); Neutrophils % (auto) 49.8 %; Platelet Count 165 K/uL (130-400); RDW Coefficient of Variation 13.1 % (11.5-14.5); RDW Standard Deviation 44.4 fL (36.4-46.3); Red Blood Count 4.32 M/uL (4.70-6.10); White Blood Count 5.36 K/ul (4.8-10.8)
[2023-04-09 04:23] LABS: BUN Creatinine Ratio 19.9 (10-20); Calcium 9.5 mg/dl (8.6-10.3); Creatinine Clr Calc Pharmacy 44.1 ml/min; Est GFR (African American) 49.5 ml/min; Est GFR (Non-African American) 42.7 ml/min; Potassium 4.1 mmol/L (3.5-5.1)
[2023-04-09] MEDS: HEPARIN SOD 5,000 UNIT/0.5 ML VIAL SQ SCH (06:17)
[2023-04-09] MEDS: allopurinoL 100 MG TAB PO SCH (08:06)
[2023-04-09] MEDS: carBAMazepine XR 200 MG TABCR PO SCH (08:07)
[2023-04-09] MEDS: minoxidiL 2.5 MG TAB PO SCH (08:08)
[2023-04-09] MEDS: FELODIPINE 5 MG TABCR PO SCH (08:08)
[2023-04-09] MEDS: LOSARTAN POTASSIUM 50 MG TAB PO SCH (08:08)
[2023-04-09] MEDS: EZETIMIBE 10 MG TAB PO SCH (08:08)
[2023-04-09] MEDS: SPIRONOLACTONE 25 MG TAB PO SCH (08:09)
[2023-04-09] MEDS: TIMOLOL MALEATE 0.5% OP SOLN 5 ML BTL OP SCH (08:15)
[2023-04-09] MEDS: INSULIN ASPART PER UNIT CHARGE SC SCH (08:53)
[2023-04-09] MEDS ORDERED: METOPROLOL SUCC 25MG EXT REL TAB PO SCH (09:00)
[2023-04-09] MEDS ORDERED: ASPIRIN 325 MG ECTAB PO SCH (09:00)
[2023-04-09] MEDS ORDERED: POTASSIUM CHLORIDE CRTAB 20 MEQ TABCR PO SCH (09:00)
[2023-04-09] MEDS ORDERED: cloNIDine HCL 0.1 MG TAB PO SCH (09:00)
[2023-04-09] MEDS: cefTRIAXone SODIUM 2,000 MG in DEXTROSE 5 % MINI-B 50 ML IV SCH (11:16)
--- NOTE | 2023-04-09 12:02 | Cardiology Progress Note ---
Date of Service April 09, 2023 Assessment & Plan (1) Bigeminy: (2) Atypical chest pain: (3) HTN (hypertension): (4) S/P AAA repair: Plan 72-year-old patient presents to the ER with evidence of ventricular ectopy, ventricular bigeminy and possible bradycardia per home blood pressure monitor. Reduced pulse rate of 30 bpm noted on home blood pressure monitor likely due to ventricular bigeminy. No significant bradycardia or pauses recorded on telemetry since admission. ECG with sinus rhythm, first-degree AV block, PVCs, and occasional PACs. No indication for pacemaker. Toprol-XL titrated to 25 mg twice daily during hospitalization. Continue at discharge. Continue other cardiovascular medications including spironolactone, felodipine, indapamide, fenofibrate, Zetia, clonidine, potassium supplementation, aspirin, rosuvastatin, minoxidil, and irbesartan. Echocardiogram demonstrating mild concentric LVH with moderate LVH of the left interventricular septum. Findings discussed with patient. Possibly secondary to hypertensive heart disease, however, recommend cardiac MRI to exclude hypertrophic cardiomyopathy. Patient may be discharged home from a cardiovascular perspective. I will arrange for outpatient MRI and cardiology follow-up. Thank you for allow me to participate in the care of your patient. Admission and Anticipated Discharge Date Admission Date: April 08, 2023 Subjective Patient seen examined the bedside. Feeling well today. PVCs noted on telemetry. No significant bradycardia, pauses, or heart block. States "I slept well". No chest pain or heaviness. Review of Systems Review of Systems: All systems reviewed & are unremarkable except as noted in Subjective Physical Exam Constitutional: well nourished; no acute distress Respiratory: no respiratory distress, no labored breathing and no retractions Auscultation: no crackles, no rales, no rhonchi and no wheezes Cardiovascular: Rate/Rhythm: regular rate and regular rhythm Heart Sounds: normal S1 and normal S2 Vessels: radial pulses present; no JVD Extremities: no edema Gastrointestinal (Abdomen): Inspection/Auscultation: normal bowel sounds; a bdomen not distended Percussion/Palpation: abdomen soft; abdomen nontender, no guarding and abdomen not rigid Neurologic: CN's II-XI intact bilaterally and moves all extremities; no focal motor deficits Psychiatric: A+Ox3, euthymic affect Results & Data Vital Signs (Past 12 Hours) Vital Signs Temp Pulse Pulse Resp BP Pulse Ox Pulse Ox 04/09/23 07:36 59 L 04/09/23 04:11 36.8 C 65 16 129/84 95 04/09/23 02:23 98 04/09/23 00:51 66 18 147/85 H 98 O2 Del Method O2 Del Method O2 Flow Rate 04/09/23 07:36 04/09/23 04:11 Room Air 04/09/23 02:23 Room Air 0 04/09/23 00:51 Room Air Laboratory Results CBC 04/09/23 Range/Units 03:46 WBC 5.36 (4.8-10.8) K/ul RBC 4.32 L (4.70-6.10) M/uL Hgb 13.3 L (14.0-18.0) g/dl Hct 39.4 L (42.0-52.0) % Plt Count 165 (130-400) K/uL Neut # (Auto) 2.67 (1.40-6.50) K/uL Lymph # (Auto) 1.92 (1.20-3.40) K/uL [place] # (Auto) 0.55 (0.11-0.59) K/uL Eos # (Auto) 0.19 (0.00-0.50) K/uL Baso # (Auto) 0.02 (0.00-0.20) K/uL Comprehensive Metabolic Panel 04/09/23 Range/Units 03:46 Sodium 139 (136-145) mmol/L Potassium 4.1 (3.5-5.1) mmol/L Chloride 106 (98-107) mmol/L Carbon Dioxide 27 (21-32) mmol/L BUN 32 H (6-23) mg/dl Creatinine 1.61 H (0.6-1.4) mg/dl Glucose 101 H (70-99(Fasting)) mg/dl Calcium 9.5 (8.6-10.3) mg/dl Intake and Output 04/08/23 04/09/23 04/09/23 22:59 06:59 14:59 Intake Total 1000 / 1050 Balance 1000 / 1050 Intake: IV 1000 / 1050 Sodium Chlor 0.45% + 20Meq KCl 1000 / 1000 20 meq In 1,000 ml @ 50 mls/hr IV .Q20H STA Rx#:[id number] (3) HTN (hypertension) Hypertension type: essential hypertension Qualified Code(s): I10 - Essential (primary) hypertension
--- NOTE | 2023-04-09 12:15 | Hospitalist Progress Note ---
Date of Service April 09, 2023 Assessment & Plan (1) Chest pain: Plan: Ventricular ectopy/ventricular bigeminy--POA Possible bradycardia EKG showed sinus rhythm, first-degree AV block, PVCs and occasional PACs. Normal troponins, normal TSH Bio fire negative ECHO: EF 60 to 65%. Mild concentric LVH. Moderate asymmetric hypertrophy of the left ventricle septum with maximal thickness of 1.6 cm. Left atrium is mildly dilated. Mild mitral regurgitation with mild tricuspid regurgitation. Estimated systolic pressure is 36 mmHg. Mild aortic root dilatation. Mild dilated ascending aorta. Diastolic dysfunction, grade 2. Monitor and replace electrolytes as needed Low indication for pacemaker as per cardiology Toprol-XL titrated up to 25 mg twice a day. Appreciate cardiology input Needs further workup as outpatient--cardiac MRI Planned to be discharged home today Equivocal Lyme screen Patient denies tick bite next Confirmatory serology for Lyme's pending Advised to follow-up with PCP for results LAMIN noncompliance with CPAP use Counseled to use CPAP regularly Nonocclusive CAD Hypertension Hyperlipidemia Continue home medications Metoprolol, clonidine held due to bradycardia Monitor BP AAA S/P surgery DM II HbA1c of 6.28 Jan 2023 Continue insulin while hospitalized Monitor BGs CKD III Cr at baseline Monitor renal function Avoid nephrotoxic agents as able DVT Px: Heparin SQ Code Status Full code Disposition Home Admission and Anticipated Discharge Date Admission Date: April 08, 2023 Subjective Patient is seen and examined at bedside States feeling well today Offers no complaints Discussed with cardiology today Denies any chest pain, dyspnea, dizziness, nausea, vomiting, abdominal pain Plan to be discharged home today Review of Systems Review of Systems: All systems reviewed & are unremarkable except as noted in Subjective Physical Exam Physical Exam: Physical Exam: Vitals signs as noted above General Appearance:Moderately built and nourished, no apparent distress Head: normocephalic, Atraumatic Eyes: normal inspection, EOMI Neck: supple, Trachea midline Respiratory/Chest: Normal breath sounds, CTA, No accessory muscle use Cardiovascular: S1, S2, No murmur Abdomen/GI:Soft, Non tender, Bowel sounds present Extremities/Musculoskeletal:normal inspection, no edema Neurologic/Psych:AAOX3, grossly no focal neurological deficits Skin: normal color, warm Results & Data Results & Data Vital Signs (Past 12 Hours) Vital Signs Temp Pulse Pulse Resp BP Pulse Ox Pulse Ox 04/09/23 07:36 59 L 04/09/23 04:11 36.8 C 65 16 129/84 95 04/09/23 02:23 98 04/09/23 00:51 66 18 147/85 H 98 O2 Del Method O2 Del Method O2 Flow Rate 04/09/23 07:36 04/09/23 04:11 Room Air 04/09/23 02:23 Room Air 0 04/09/23 00:51 Room Air Laboratory Results Short CBC 04/09/23 Range/Units 03:46 WBC 5.36 (4.8-10.8) K/ul Hgb 13.3 L (14.0-18.0) g/dl Hct 39.4 L (42.0-52.0) % Plt Count 165 (130-400) K/uL BMP 04/09/23 03:46 Sodium 139 Potassium 4.1 Chloride 106 Carbon Dioxide 27 BUN 32 H Creatinine 1.61 H Glucose 101 H Calcium 9.5 (1) Chest pain Chest pain type: unspecified Qualified Code(s): R07.9 - Chest pain, unspecified
--- NOTE | 2023-04-09 12:29 | Communication Note ---
Date of Service: April 09, 2023 By CMS guidelines, a determination that the admission or continued stay is not medically necessary has been made by a member of the UR committee and a ph ysician for this hospital stay, therefore a Code 44 will be completed and the Inpatient admission will be changed to outpatient.
--- NOTE | 2023-04-09 12:30 | Communication Note ---
Date of Service: April 09, 2023 By CMS guidelines, a determination that the admission or continued stay is not medically necessary has been made by a member of the Utilization Review c ommittee and a physician for this hospital stay. Therefore, a Code 44 will be completed and the inpatient admission will be changed to outpatient.
--- NOTE | 2023-04-09 12:32 | Discharge Summary ---
Date of Service April 09, 2023 Admission HPI Per Admitting Provider History obtained from patient, family, and records. Medical history significant for nonocclusive CAD, hypertension, hyperlipidemia, AAA status post surgery, DM 2 diet-controlled, CRI (baseline creatinine 1.5), chronic anemia (baseline hemoglobin 12-13 ), GERD, trigeminal neuralgia, rosacea on doxycycline, LAMIN on CPAP. Last confinement June 2021 under orthopedic service for elective total right knee replacement. Patient with fatigue symptoms for couple of weeks. Admits to not being compliant to home CPAP machine for LAMIN secondary to shoulder issues. Denies headache symptoms. Patient unaware of tick bites. Last week, patient had transient achy left-sided chest pain without radiation symptoms. Patient took blood pressure at home. SBP transiently noted to be 200s. Heart rate 40s. BP improved after 1 dose of extra clonidine intake. Patient experienced SOB symptoms with recurrent left-sided chest pain last night. Heart rate noted to be 30s. Patient brought to ER for evaluation. Lowest heart rate of 30s noted at the ER. Aspirin administered at the ER. Current heart rate 50s, patient currently comfortable. 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 Admission Exam Per Admitting Provider GENERAL: Comfortable, pleasant, no respiratory distress SKIN: Normal color, warm HEENT: [place] palpebral conjunctivae, no ptosis, dry buccal mucosa NECK : Supple, no tenderness CHEST : CTA, no tenderness HEART : Bradycardic, no obvious murmurs ABDOMEN: Some distention, nontender EXTREMITIES : No LE swelling/tenderness, no other conspicuous deformities noted NEUROLOGIC : Coherent, no facial asymmetry, no other gross focality Principal Diagnosis Ventricular ectopy/ventricular bigeminy Equivocal Lyme LAMIN Discharge Data Allergies Allergy/AdvReac Type Severity Reaction Status Date / Time No Known Allergies Allergy Unknown Verified 01/12/23 09:50 Consultations 04/08/23 06:05 Consult Cardiology Routine Procedures Performed Short CBC 04/09/23 Range/Units 03:46 WBC 5.36 (4.8-10.8) K/ul Hgb 13.3 L (14.0-18.0) g/dl Hct 39.4 L (42.0-52.0) % Plt Count 165 (130-400) K/uL [facility] 04/09/23 03:46 Sodium 139 Potassium 4.1 Chloride 106 Carbon Dioxide 27 BUN 32 H Creatinine 1.61 H Glucose 101 H Calcium 9.5 Hospital Course (1) Chest pain: Ventricular ectopy/ventricular bigeminy--POA Possible bradycardia EKG showed sinus rhythm, first-degree AV block, PVCs and occasional PACs. Normal troponins, normal TSH Bio fire negative ECHO: EF 60 to 65%. Mild concentric LVH. Moderate asymmetric hypertrophy of the left ventricle septum with maximal thickness of 1.6 cm. Left atrium is mildly dilated. Mild mitral regurgitation with mild tricuspid regurgitation. Estimated systolic pressure is 36 mmHg. Mild aortic root dilatation. Mild dilated ascending aorta. Diastolic dysfunction, grade 2. Monitor and replace electrolytes as needed Low indication for pacemaker as per cardiology Toprol-XL titrated up to 25 mg twice a day. Appreciate cardiology input Needs further workup as outpatient--cardiac MRI Planned to be discharged home today Equivocal Lyme screen Patient denies tick bite next Confirmatory serology for Lyme's pending Advised to follow-up with PCP for results LAMIN noncompliance with CPAP use Counseled to use CPAP regularly Nonocclusive CAD Hypertension Hyperlipidemia Continue home medications Metoprolol, clonidine held due to bradycardia Monitor BP AAA S/P surgery DM II HbA1c of 6.28 Jan 2023 Continue insulin while hospitalized Monitor BGs CKD III Cr at baseline Monitor renal function Avoid nephrotoxic agents as able DVT Px: Heparin SQ Code Status Full code Disposition Home Total Time Total Time Spent Total Time Spent (In Minutes): 55 minutes Discharge Plan Discharge Items Patient Disposition: Home - Self-Care Reason For Visit: SYMPTOMATIC BRADYCARDIA Discharge Diagnosis: Ventricular ectopy/ventricular bigeminy Equivocal Lyme LAMIN Activity: Per Instructions section Exercise/Sports: Gradually increase as tolerated Non-emergency contact: Primary Care Provider and Racecourse Barrier Attendant Call non-emergency contact if: you have any medication questions, your symptoms worsen, your pain is concerning for you and you have a fever Follow-up/Referrals: Domingo Zhang MD [Primary Care Provider] - Diet: Carb Consistent or DM2 and Heart Healthy Addtl Attending Provider Instructions: Follow-up with your primary care physician Dr. Godfrey in 1 week Follow-up with your machine iii [address] Rivas as advised --- Get outpatient cardiac MRI as advised. --Your Lyme's test is pending at the time of discharge. Follow-up with your physician for results. --Use CPAP at night regularly. --Start taking metoprolol succinate 25 mg twice a day as recommended by your machine iii coremaker. --Monitor your blood pressure regularly at home. Discuss with your physician for further instructions. Seek immediate medical attention if your symptoms reoccur or worsen Please take all medications as instructed on discharge list below. Please call if you have any questions or problems. You can reach a [facility] hospitalist on duty at [facility] 24 hours a day by calling [phone] Pending Studies at Discharge: Yes Studies:: Lyme serology Stand-Alone Forms: My [facility] InfoNow, Smoking Cessation Medications and DC Order Prescriptions: Continued ascorbic acid (vitamin C) 1,000 mg Tablet 1 g PO BID allopurinol 100 mg tablet 100 mg PO QAM clonidine HCl 0.1 mg tablet 0.1 mg PO TID Rx Instructions: one in the morning and two at night felodipine 5 mg tablet extended release 24 hr 5 mg PO QAM fenofibrate micronized 200 mg capsule 200 mg PO QPM ezetimibe [Zetia] 10 mg tablet 10 mg PO QAM indapamide 2.5 mg tablet 2.5 mg PO BID minoxidil 10 mg tablet 5 mg PO BID irbesartan 150 mg tablet 150 mg PO BID spironolactone [Aldactone] 25 mg tablet 25 mg PO QAM rosuvastatin [Crestor] 40 mg tablet 40 mg PO QPM potassium chloride 10 mEq tablet,ER particles/crystals 20 meq PO QAM magnesium oxide 400 mg magnesium Tablet 500 mg PO QAM carbamazepine [Tegretol XR] 200 mg Tablet Extended Release 12 Hr 200 mg PO BID omega [id number]-fish oil [Fish Oil] 1,000 mg (120 mg-180 mg) Capsule 2 cap PO BID doxycycline monohydrate 50 mg Tablet 20 mg PO QAM hydrocodone-acetaminophen 5-325 mg tablet 1 - 2 tab PO Q6H PRN (Reason: pain) Qty: 10 0RF trazodone 100 mg tablet 100 mg PO HS timolol maleate 0.5 % drops 1 drp ophthalmic (eye) BID aspirin 325 mg PO DAILY Changed metoprolol succinate 50 mg tablet extended release 24 hr 25 mg PO BID Qty: 30 1RF Rx Instructions: 1/2 tablet dose Discharge Orders: Discharge Order (Routine); Ordered 04/09/23 Ordered By: Santana Dalton Admission Data Admit Date/Time: 04/08/23 05:11 Attending Provider: Santana Dalton Admit Provider: Morris Vidal Primary Care Provider: Domingo Zhang Other Providers: Rosalinda Casarez; Rico Tamez; Juan Rivas; Viktor Jordan; Fede Cruz; Domingo Castro; Fe Boyer; Rachel Little; Rosalinda Yee; Dave Pack; Alex Do; Aranza Butt; Magaly Fernando; Suni Jacques; Arley Cespedes
--- NOTE | 2023-04-09 20:31 | Electrocardiogram Report ---
Test Reason : Blood Pressure : / mmHG Vent. Rate : 063 BPM Atrial Rate : 093 BPM P-R Int : 212 ms QRS Dur : 096 ms QT Int : 436 ms P-R-T Axes : 061 -20 063 degrees QTc Int : 446 ms Sinus rhythm with 1st degree A-V block with frequent Premature ventricular complexes and Premature at rial complexes Abnormal ECG When compared with ECG of 18-JUL-2022 11:18, Premature atrial complexes are now Present Confirmed by Tavares Augustin ([id number]) on 04/09/2023 8:30:37 PM Referred By: REFERRED SELF Confirmed By:Tavares Augustin
--- NOTE | 2023-04-09 20:31 | Electrocardiogram Report ---
Test Reason : Blood Pressure : / mmHG Vent. Rate : 055 BPM Atrial Rate : 055 BPM P-R Int : 216 ms QRS Dur : 098 ms QT Int : 436 ms P-R-T Axes : 031 -23 -01 degrees QTc Int : 417 ms Sinus bradycardia with 1st degree A-V block Otherwise normal ECG When compared with ECG of 08-APR-2023 03:19, (unconfirmed) Premature ventricular complexes are no longer Present Inverted T waves have replaced nonspecific T wave abnormality in Inferior leads Confirmed by Tavares Augustin ([id number]) on 04/09/2023 8:31:22 PM Referred By: REFERRED SELF Confirmed By:Tavares Augustin
--- NOTE | 2023-04-09 20:31 | Electrocardiogram Report ---
Test Reason : Blood Pressure : / mmHG Vent. Rate : 059 BPM Atrial Rate : 059 BPM P-R Int : 202 ms QRS Dur : 096 ms QT Int : 446 ms P-R-T Axes : 029 -17 035 degrees QTc Int : 441 ms Sinus bradycardia with frequent Premature ventricular complexes in a pattern of bigeminy Abnormal ECG When compared with ECG of 08-APR-2023 03:08, (unconfirmed) Premature atrial complexes are no longer Present Confirmed by Tavares Augustin ([id number]) on 04/09/2023 8:30:59 PM Referred By: REFERRED SELF Confirmed By:Tavares Augustin
[2023-04-11 03:17] LABS: 18KDIGG Band NON-REACTIVE; 23KDIGG Band NON-REACTIVE; 23KDIGM Band NON-REACTIVE; 28KDIGG Band NON-REACTIVE; 30KDIGG Band NON-REACTIVE; 39KDIGG Band NON-REACTIVE; 39KDIGM Band NON-REACTIVE; 41KDIGG Band NON-REACTIVE; 41KDIGM Band NON-REACTIVE; 45KDIGG Band NON-REACTIVE; 58KDIGG Band NON-REACTIVE; 66KDIGG Band NON-REACTIVE; 93KDIGG Band NON-REACTIVE; Lyme Antibodies, WB IgG NEGATIVE (NEGATIVE); Lyme Antibodies, WB IgM NEGATIVE (NEGATIVE)
== END 2023-04-09 12:42 | disposition home or self-care (01) ==
LOC: ED 02:52 → INTOOBSV 05:11 → EDINP 05:11